=== PATIENT | male | born 1950 | race African-American/Black ===

== ENCOUNTER 2016-07-31 05:41 | Inpatient (IN) | payer OTHER ==
[2016-07-31] MEDS ORDERED: SODIUM CHLORIDE 1,000 ML IV SCH (06:00)
[2016-07-31] MEDS ORDERED: NITROGLYCERIN 2% OINTMENT - 1GM PACKET TD ONE (06:00)
--- NOTE | 2016-07-31 06:07 | PDOC ---
History of Present Illness - General History Source: Patient, Family Exam Limitations: No Limitations - History of Present Illness Initial Comments: 07/31/16 06:19 The patient is a 66-year-old male, with a significant past medical history of Afib, CHF, CVA(years ago) and lower extremity edema who presents to the emergency department via EMS with altered mental status s/p seizure episode this morning. As per patients , she reports the last time she saw the patient fully responsive was at approximately 02:00. After they went to sleep, she reports hearing a loud thump in the bathroom, but does not report a specific time. She woke up to check on the patient, found him seizing on the floor, and immediately called EMS. The denies witnessing the patient experienced any head trauma or LOC. When EMS arrived on scene the patient was not breathing, and his b.p was approximately 140/80. In the ED his b.p. Was 183/ 111. The patient is awake and minimally responsive. He reports he is experiencing chest pain. Allergies: None reported. Past Surgical History: None reported. Social History: Non-smoker. Denies alcohol or drug use. PCP: Dr. Beavers <Pierre Guerra - Last Filed: 07/31/16 06:45> <Rafaela Greenfield - Last Filed: 07/31/16 07:12> <Pradeep Doip - Last Filed: 07/31/16 09:38> - General Chief Complaint: Altered Mental Status Stated Complaint: AMS Time Seen by Provider: 07/31/16 06:07 Past History <Pierre Guerra - Last Filed: 07/31/16 06:45> - Past Medical History Cardiac Disorders: Yes Diabetes: Yes HTN: Yes Hypercholesterolemia: Yes - Surgical History Cardiac Surgery: Yes (stent) - Psycho/Social/Smoking Cessation Hx Suicidal Ideation: No Smoking History: Never smoked Information on smoking cessation initiated: No Hx Alcohol Use: No Drug/Substance Use Hx: No <Rafaela Greenfield - Last Filed: 07/31/16 07:12> <Pradeep Diop - Last Filed: 07/31/16 09:38> - Past Medical History Allergies/Adverse Reactions: Allergies Allergy/AdvReac Type Severity Reaction Status Date / Time No Known Allergies Allergy Verified 07/31/16 05:51 Home Medications: Ambulatory Orders Dabigatran Etexilate Mesylate [Pradaxa -] 150 mg PO BID 07/31/16 Furosemide [Lasix -] 40 mg PO DAILY 07/31/16 Metolazone [Zaroxolyn -] 10 mg PO WEEKLY 07/31/16 Sacubitril/Valsartan [Entresto 24 mg-26 mg Tablet] 1 each PO BID 07/31/16 Simvastatin [Zocor -] 40 mg PO HS 07/31/16 Review of Systems - Review of Systems Able to Perform ROS?: Yes Comments:: 07/31/16 06:40 GENERAL/CONSTITUTIONAL: +Weakness. No fever or chills. HEAD, EYES, EARS, NOSE AND THROAT: No change in vision. No ear pain or discharge. No sore throat. CARDIOVASCULAR: +Chest pain. No shortness of breath. RESPIRATORY: No cough, wheezing, or hemoptysis. GASTROINTESTINAL: No nausea, vomiting, diarrhea or constipation. GENITOURINARY: No dysuria, frequency, or change in urination. MUSCULOSKELETAL: No joint or muscle swelling or pain. No neck or back pain. SKIN: No rash NEUROLOGIC: +Seizures, +altered mental status. No headache, vertigo, loss of consciousness, or change in strength/sensation. ENDOCRINE: No increased thirst. No abnormal weight change. HEMATOLOGIC/LYMPHATIC: No anemia, easy bleeding, or history of blood clots. ALLERGIC/IMMUNOLOGIC: No hives or skin allergy. <Pierre Guerra - Last Filed: 07/31/16 06:45> *Physical Exam - Vital Signs Last Vital Signs Temp Pulse Resp BP Pulse Ox 90 32 H 141/115 100 07/31/16 05:56 07/31/16 05:56 07/31/16 05:56 07/31/16 05:56 - Physical Exam Comments: 07/31/16 06:44 GENERAL:. Arousable, but sleepy. In no acute distress. Afebrile. HEAD: No signs of trauma EYES: +Gaze preference to the left, and unable to follow gaze to the right. PERRLA, EOMI, sclera anicteric, conjunctiva clear ENT: Auricles normal inspection, hearing grossly normal, nares patent, oropharynx clear without exudates. Moist mucosa NECK: Normal ROM, supple, no lymphadenopathy, JVD, or masses LUNGS: Breath sounds equal, clear to auscultation bilaterally. No wheezes, and no crackles HEART: +Irregularly irregular. Normal S1 and S2, no murmurs, rubs or gallops ABDOMEN: Soft, nontender, normoactive bowel sounds. No guarding, no rebound. No masses EXTREMITIES: +Right arm and right leg weakness. Bilateral pitting edema in the lower extremities. His legs are nonerythematous, but warm. No clubbing or cyanosis. No cords or tenderness NEUROLOGICAL: +Mumbling, +unintelligible speech, +unable to follow commands. +1/ 5 strength on the right side, 2/5 strength on his left side. Cranial nerves II through XII grossly intact. SKIN: Warm, Dry, normal turgor, no rashes or lesions noted. <Pierre Guerra - Last Filed: 07/31/16 06:45> - Vital Signs Last Vital Signs Temp Pulse Resp BP Pulse Ox 90 32 H 141/115 100 07/31/16 05:56 07/31/16 05:56 07/31/16 05:56 07/31/16 05:56 <Rafaela Greenfield - Last Filed: 07/31/16 07:12> - Vital Signs Last Vital Signs Temp Pulse Resp BP Pulse Ox 97.6 F 85 18 146/92 100 07/31/16 07:21 07/31/16 07:21 07/31/16 07:21 07/31/16 07:21 07/31/16 07:21 <Pradeep Diop - Last Filed: 07/31/16 09:38> NIH Stroke Scale - Last Known Well Date/Time & Onset Date Last Known Well: 07/31/16 Time Last Known Well: 02:05 - Initial Evaluation Level of consciousness: Not alert, requires repeat stimulation to attend Ask patient the month and their age: Both incorrect Ask patient to open & close eyes; make fist and let go: Both incorrect Best gaze (horizontal eye movement): Partial gaze palsy Visual field testing: Complete hemianopia Facial paresis (Show teeth/raise eyebrows/close eyes tight): Normal symmetrical movement Motor Function: Left Arm: Normal Motor Function: Right Arm: Some effort against gravity Motor Function: Left Leg: No effort against gravity Motor Function: Right Leg: No effort against gravity Limb Ataxia: Untestable (Joint fused or limb amputated), explain: (Pt is not following commada) Sensory(Use pinprick test arms,legs,trunk,face/side to side): Mild to moderate decrease in sensation Best language (Describe picture, name items, read sentences): Severe aphasia Dysarthria (read several words): Near unintelligible or unable to speak Extinction and Inattention: Profound francisco-inattention or extinction to more than one modality - Total Score NIH Stroke Scale Score: 24 <Rafaela Greenfield - Last Filed: 07/31/16 07:12> Critical Care Time/MDM Note - Medical Decision Making Note: 07/31/16 06:46 Documentation prepared by Pierre Guerra, acting as neuropsychology medical consultant for Rafaela Greenfield MD. <Pierre Guerra - Last Filed: 07/31/16 06:45> - Medical Decision Making Note: 07/31/16 06:53 Pt comes with altered mental status; body weakness and slurred speech. He fell at home and heard a thump and brought him to the ER. She thinks he got up to use the bathroom in the middle of the night. She last saw him well around 2AM today. 07/31/16 06:55 Fredy Xiong Discussed with Dr. Greenfield at 6:22am (EST). THIS DOCUMENT HAS BEEN ELECTRONICALLY SIGNED Dario Morales MD 07/31/2016 06:23 EST M.D. Please call [facility] Professor [phone] ([phone]) with questions. PREVIOUS REPORT: Referring Physician: Chaya De Luna Patient Name: Fredy Xiong THIS IS A PRELIMINARY REPORT FROM [facility] EXAM: CT of the brain without contrast. IMAGES: 78. No hyperdense major arterial trunk or gross loss of frankel-white differentiation; moderate white matter presumed microvascular disease changes. No disproportionate ventriculomegaly. Small focus of left periopercular ill-defined relative hyperdensity, possibly artifact but a trace amount of subarachnoid blood is not excluded (image 15). There is no intra-axial hemorrhage, vasogenic edema/focal mass effect or disproportionate ventriculomegaly. The visualized portions of the paranasal sinuses, orbits and tympanomastoid cavities are unremarkable. Impression: as above. THIS DOCUMENT HAS BEEN ELECTRONICALLY SIGNED Pt's stroke scale is initially 24; see attached document. He has a history if CHF and atrial fibrillation. He is on pradaxa. The states that he had not been feeling well for the past 2 days and he ate only some crackers and tea yesterday. Labs are pending. Patient will be signed out to the day ER doctor. 07/31/16 07:03 <Rafaela Greenfield - Last Filed: 07/31/16 07:12> Discharge Disposition <Pierre Guerra - Last Filed: 07/31/16 06:45> <Rafaela Greenfield - Last Filed: 07/31/16 07:12> - Discharge Dispostion Admit: Yes <Pradeep Diop - Last Filed: 07/31/16 09:38> - Diagnosis Progressive dementia with uncertain etiology, Hydrocephalus - Discharge Dispostion Condition at time of disposition: Guarded - Referrals Referrals: Timmy Beavres [Primary Care Provider] -
[2016-07-31 06:16] LABS: BASOPHIL 1.1 % (0-2.0); MCH 29.6 pg (25.7-33.7); MCHC 32.8 g/dl (32.0-36.0); MEAN CELL VOLUME 90.4 fl (80-96); MEAN PLT VOLUME 9.4 fl (7.5-11.1); NEUTROPHILS 67.2 % (42.8-82.8); PLATELET COUNT 218 K/MM3 (134-434); RDW 13.9 % (11.6-15.6); WHITE BLOOD COUNT 10.5 K/mm3 (4.0-10.0)
[2016-07-31 06:36] LABS: INR 1.61 (0.82-1.09); PROTHROMBIN TIME (PATIENT) 17.9 SEC (9.98-11.88)
[2016-07-31 06:45] LABS: ALBUMIN 3.8 g/dl (3.4-5.0); ANION GAP 15 (8-16); BILIRUBIN,TOTAL 1.1 mg/dL (0.2-1.0); CALCIUM 9.6 mg/dL (8.5-10.1); CHOLESTEROL 172 mg/dL (50-200); CO2 24 mmol/L (21-32); CREATININE 1.4 mg/dL (0.55-1.02); GLUCOSE,RANDOM 173 mg/dL (74-106); LDL CHOLESTEROL (ONLY SJRH) 97 mg/dL (5-100); SGOT/AST 15 U/L (15-37); SGPT/ALT 18 U/L (12-78); TOT PROT 8.2 g/dl (6.4-8.2)
[2016-07-31 06:46] LABS: ALK PHOS 106 U/L (45-117); TROPONIN I < 0.02 ng/ml (0.00-0.05)
[2016-07-31] MEDS ORDERED: SODIUM CHLORIDE 0.9% 500 ML INFUS.BAG IV ONE (06:57)
[2016-07-31 07:12] LABS: URINE APPEARANCE SLCLOUDY; URINE BILIRUBIN NEGATIVE (NEGATIVE); URINE COLOR YELLOW; URINE GLUCOSE (UA) NEGATIVE (NEGATIVE); URINE KETONE TRACE (NEGATIVE); URINE LEUK ESTERASE NEGATIVE (NEGATIVE); URINE NITRITE NEGATIVE (NEGATIVE); URINE UROBILINOGEN NEGATIVE E.U./dl (0.2-1.0)
[2016-07-31 07:45] LABS: URINE BLOOD 2+ (NEGATIVE); URINE PROTEIN 3+ (NEGATIVE)
[2016-07-31 07:46] LABS: URINE BACTERIA RARE /hpf (NONE SEEN); URINE HYALINE CAST 59 /lpf; URINE MUCUS RARE; URINE RBC 9 /hpf (0-3); URINE WBC 2 /hpf (3-5); YEAST MANY
--- NOTE | 2016-07-31 10:09 | HP ---
PCP: Timmy Beavers CHIEF COMPLAINT: Seizure HISTORY OF PRESENT ILLNESS: This is a 66-year-old man who was brought in to the ER this morning by EMS after a seizure. The patient is currently unable to provide a history. His reported that sometime after 2 am, she heard a thump in the bathroom. She found the patient on the floor seizing. She called EMS. They reported that when they arrived, he was not breathing and his BP was 140/80. Since arrival in the ER, he has been minimally responsive. PAST MEDICAL HISTORY Atrial fibrillation Hypertension Hyperlipidemia CHF CVA PAST SURGICAL HISTORY None Allergies No Known Allergies Allergy (Verified 07/31/16 05:51) HOME MEDICATIONS 3 Medication Instructions Recorded Dabigatran Etexilate Mesylate 150 mg PO BID 07/31/16 [Pradaxa -] Furosemide [Lasix -] 40 mg PO DAILY 07/31/16 Metolazone [Zaroxolyn -] 10 mg PO WEEKLY 07/31/16 Sacubitril/Valsartan [Entresto 24 1 each PO BID 07/31/16 mg-26 mg Tablet] Simvastatin [Zocor -] 40 mg PO HS 07/31/16 Social History: Smoking: Never smoked Alcohol: None Drugs: None Recent Travel: No Family History: Unable to obtain REVIEW OF SYSTEMS Unable to obtain PHYSICAL EXAMINATION Vital Signs Period Temp Pulse Resp BP Sys/Giraldo Pulse Ox Last 24 Hr 97.6 F-98.2 F 73-90 14-32 132-183/78-115 97-100 GENERAL: Lying on stretcher, moaning. Does not respond to voice. Moans in response to pain. HEAD: Normal with no signs of trauma. EYES: Pupils equal, round and reactive to light, sclerae anicteric, conjunctivae clear. EARS, NOSE, THROAT: Ears normal, nares patent, oropharynx clear without exudates. Moist mucous membranes. NECK: Normal range of motion, supple without lymphadenopathy, JVD, or masses. LUNGS: Breath sounds equal, clear to auscultation bilaterally. No wheezes, and no crackles. No accessory muscle use. HEART: Regular rate and rhythm, normal S1 and S2 without murmur, rub or gallop. ABDOMEN: Soft, not distended, normoactive bowel sounds, no masses. No hepatomegaly or splenomegaly. MUSCULOSKELETAL: Normal passive range of motion at all joints. No bony deformities or tenderness. UPPER EXTREMITIES: 2+ pulses, warm, well-perfused. No cyanosis. No clubbing. Cap refill <2 seconds. No peripheral edema. LOWER EXTREMITIES: 2+ pulses, warm, well-perfused. No calf tenderness. Trace peripheral edema. NEUROLOGICAL: Unable to assess. PSYCHIATRIC: Unable to assess. SKIN: Warm, dry, normal turgor, no rashes or lesions noted. Laboratory Tests 07/31/16 07/31/16 07/31/16 05:55 05:55 05:55 WBC 10.5 H RBC 4.84 Hgb 14.4 Hct 43.8 MCV 90.4 MCHC 32.8 RDW 13.9 Plt Count 218 MPV 9.4 Neutrophils % 67.2 Lymphocytes % 22.4 Monocytes % 8.3 Eosinophils % 1.0 Basophils % 1.1 INR 1.61 H Sodium Potassium Chloride Carbon Dioxide Anion Gap BUN Creatinine Creat Clearance w eGFR POC Glucometer Random Glucose Lactic Acid Calcium Total Bilirubin AST ALT Alkaline Phosphatase Creatine Kinase Troponin I Total Protein Albumin Triglycerides Cholesterol Total LDL Cholesterol HDL Cholesterol Urine Color Yellow Urine Appearance Slcloudy Urine pH 5.0 Ur Specific [place] 1.012 Urine Protein 3+ H Urine Glucose (UA) Negative Urine Ketones Trace H Urine Blood 2+ H Urine Nitrite Negative Urine Bilirubin Negative Urine Urobilinogen Negative Ur Leukocyte Esterase Negative Urine RBC 9 Urine WBC 2 Urine Bacteria Rare Hyaline Casts 59 Urine Mucus Rare Urine Yeast Many Blood Type Antibody Screen 07/31/16 07/31/16 07/31/16 05:55 05:55 05:57 WBC RBC Hgb Hct MCV MCHC RDW Plt Count MPV Neutrophils % Lymphocytes % Monocytes % Eosinophils % Basophils % INR Sodium 140 Potassium 3.4 L Chloride 101 Carbon Dioxide 24 Anion Gap 15 BUN 14 Creatinine 1.4 H Creat Clearance w eGFR 37.39 POC Glucometer Random Glucose 173 H Lactic Acid Cancelled Calcium 9.6 Total Bilirubin 1.1 H AST 15 ALT 18 Alkaline Phosphatase 106 Creatine Kinase 106 Troponin I < 0.02 Total Protein 8.2 Albumin 3.8 Triglycerides 87 Cholesterol 172 Total LDL Cholesterol 97 HDL Cholesterol 65 H Urine Color Urine Appearance Urine pH Ur Specific [place] Urine Protein Urine Glucose (UA) Urine Ketones Urine Blood Urine Nitrite Urine Bilirubin Urine Urobilinogen Ur Leukocyte Esterase Urine RBC Urine WBC Urine Bacteria Hyaline Casts Urine Mucus Urine Yeast Blood Type O POSITIVE Antibody Screen Negative 07/31/16 05:57 WBC RBC Hgb Hct MCV MCHC RDW Plt Count MPV Neutrophils % Lymphocytes % Monocytes % Eosinophils % Basophils % INR Sodium Potassium Chloride Carbon Dioxide Anion Gap BUN Creatinine Creat Clearance w eGFR POC Glucometer [phone] Random Glucose Lactic Acid Calcium Total Bilirubin AST ALT Alkaline Phosphatase Creatine Kinase Troponin I Total Protein Albumin Triglycerides Cholesterol Total LDL Cholesterol HDL Cholesterol Urine Color Urine Appearance Urine pH Ur Specific [place] Urine Protein Urine Glucose (UA) Urine Ketones Urine Blood Urine Nitrite Urine Bilirubin Urine Urobilinogen Ur Leukocyte Esterase Urine RBC Urine WBC Urine Bacteria Hyaline Casts Urine Mucus Urine Yeast Blood Type Antibody Screen Chest x-ray: Cardiomegaly. Congestive changes. Bilateral effusions. Left pleural-based density. Head CT: Moderate diffuse cerebral atrophy with sulcal widening and ventricular dilatation. Linda-ventricular white matter ischemic changes. EKG: Atrial fibrillation, ventricular response 74 ASSESSMENT/PLAN: This is a 66-year-old man with a history of atrial fib, HTN, hyperlipidemia, CHF and CVA who presented to the ER after having a seizure. CXR showed congestion with bilateral effusions and a possible left pleural mass. Head CT showed atrophy and linda-ventricular white matter changes. He is being admitted now for treatment of an emergent condition. 1. Seizure, new-onset - Appears post-ictal - No anti-epileptics at this time - EEG - MRI of brain - Neurology consult 2. Hypokalemia - Replete potassium 3. Atrial fibrillation - Continue Pradaxa 4. Hypertension - Continue Valsartan, Zaroxolyn, Lasix 5. Hyperlipidemia - Continue Zocor 6. Chronic heart failure - Contniue Entresto, Lasix, Zaroxolyn 7. History of CVA 8. Bilateral pleural effusions and possible left pleural mass - Chest CT Problem List - Problem (1) Bilateral pleural effusion Code(s): J90 - PLEURAL EFFUSION, NOT ELSEWHERE CLASSIFIED (2) Hypokalemia Code(s): E87.6 - HYPOKALEMIA (3) Seizure Code(s): R56.9 - UNSPECIFIED CONVULSIONS (4) Chronic congestive heart failure Code(s): I50.9 - HEART FAILURE, UNSPECIFIED (5) History of CVA (cerebrovascular accident) Code(s): Z86.73 - PRSNL HX OF TIA (TIA), AND CEREB INFRC W/O RESID DEFICITS (6) Hyperlipidemia Code(s): E78.5 - HYPERLIPIDEMIA, UNSPECIFIED (7) Hypertension Code(s): I10 - ESSENTIAL (PRIMARY) HYPERTENSION Visit type - Emergency Visit Emergency Visit: Yes ED Registration Date: 07/31/16 Care time: The patient presented to the Emergency Department on the above date and was hospitalized for further evaluation of their emergent condition. - New Patient This patient is new to me today: Yes Date on this admission: 07/31/16 - Critical Care Critical Care patient: No
[2016-07-31] MEDS ORDERED: ONDANSETRON 4 MG/2 ML VIAL IVPB PRN (10:10)
[2016-07-31] MEDS: SODIUM CHLORIDE 0.9%/KCL 1,000 ML IV SCH (13:20)
--- NOTE | 2016-07-31 13:25 | CON.NEURO ---
Consult Consult Specialty:: [facility] Referred by:: Er Reason for Consultation:: seziure - History of Present Illness History of Present Illness: 66 man with new onset seziure Came to ER Head CT PMH T1. Afib, 2. CHF, 3. CVA(years ago) 4. lower extremity edema who presents to the emergency department via EMS with altered mental status s/p seizure episode this morning when he came to the emergency room patient was by himself confused according to the patient described found at night and the patient was having seizure shaking activity According to the nurse patient is not back to his baseline! Patient is a poor historian and cannot get any history from him - History Source History Provided By: Patient Limitations to Obtaining History: No Limitations - Alcohol/Substance Use Hx Alcohol Use: No - Smoking History Smoking history: Never smoked Home Medications - Allergies Allergies/Adverse Reactions: Allergies Allergy/AdvReac Type Severity Reaction Status Date / Time No Known Allergies Allergy Verified 07/31/16 05:51 - Home Medications Home Medications: Ambulatory Orders Dabigatran Etexilate Mesylate [Pradaxa -] 150 mg PO BID 07/31/16 Furosemide [Lasix -] 40 mg PO DAILY 07/31/16 Metolazone [Zaroxolyn -] 10 mg PO WEEKLY 07/31/16 Sacubitril/Valsartan [Entresto 24 mg-26 mg Tablet] 1 each PO BID 07/31/16 Simvastatin [Zocor -] 40 mg PO HS 07/31/16 Family Disease History - Family Disease History Family History: Unable to Obtain Review of Systems - Review of Systems Constitutional: reports: No Symptoms Eyes: reports: No Symptoms Physical Exam-Neuro Vital Signs: Vital Signs Temperature 97.6 F 07/31/16 07:21 Pulse Rate 76 07/31/16 11:48 Respiratory Rate 18 07/31/16 11:48 Blood Pressure 146/94 07/31/16 11:48 O2 Sat by Pulse Oximetry (%) 100 07/31/16 11:48 Constitutional: Yes: Well Nourished Neck: Yes: WNL Cardiovascular: Yes: WNL Labs: INR, PTT INR 1.61 (0.82-1.09) H 07/31/16 05:55 - Neuro Exam Level Of Consciousness: Yes: Oriented to Person Eyes: Yes: PERRLA Speech: WNL Dominant Hand: Right Mini Mental Exam: 20 DTR's: 1+ Left Bicep, 1+ Right Bicep, 1+ Left Brachioradialis, 1+ Right Brachioradialis Response to light touch: Normal Response to pain prick: Normal Response to temperature: Normal Motor Strength: 3/5: Left Arm, Right Arm, Left Leg, Right Leg Gait: Deferred Imaging - Results Cat Scan: Image Reviewed Problem List - Problems (1) Seizure Code(s): R56.9 - UNSPECIFIED CONVULSIONS (2) History of CVA (cerebrovascular accident) Code(s): Z86.73 - PRSNL HX OF TIA (TIA), AND CEREB INFRC W/O RESID DEFICITS Assessment/Plan New onset seizure 1. Neuro q2 2. MRI brain with no Silverio 3. EEG 4. Ativan prn seizure 5. Will call the 6. Seizure precautions 7. Prolactin level 8. Dementia blood workup Thank you for the referral
[2016-07-31 15:33] VITALS: BMI 30.8
[2016-07-31] MEDS ORDERED: PNEUMOC 13-VAL CONJ-DIP CRM/PF 0.5 ML DISP.SYRIN IM ONE (15:33)
[2016-07-31] MEDS ORDERED: INFLUENZA VACCINE 45 MCG/0.5 ML (MDV 16-17) IM ONE (15:33)
[2016-07-31] MEDS: SACUBITRIL/VALSARTAN 24 MG-26 MG TABLET PO SCH (22:19)
[2016-07-31] MEDS: ATORVASTATIN CA 20 MG TABLET (FP) PO SCH (22:19)
[2016-07-31] MEDS: DABIGATRAN ETEXILATE MESYLATE 150 MG CAPSULE PO SCH (22:19)
[2016-08-01 08:50] LABS: MCH 29.6 pg (25.7-33.7); MEAN CELL VOLUME 89.8 fl (80-96); PLATELET COUNT 169 K/MM3 (134-434); RDW 13.3 % (11.9-15.9); WHITE BLOOD COUNT 5.8 K/mm3 (4.0-10.0)
[2016-08-01 09:42] LABS: CALCIUM 8.9 mg/dL (8.5-10.1); CREATININE 1.1 mg/dL (0.7-1.3)
[2016-08-01] MEDS ORDERED: PT OWN MED DRAWER 7, Y5N ONE (10:31)
[2016-08-01] MEDS: SODIUM CHLORIDE 0.9%/KCL 1,000 ML IV SCH (10:32)
[2016-08-01] MEDS: DABIGATRAN ETEXILATE MESYLATE 150 MG CAPSULE PO SCH ×2 (10:32→21:57)
[2016-08-01] MEDS: SACUBITRIL/VALSARTAN 24 MG-26 MG TABLET PO SCH ×2 (10:33→21:57)
[2016-08-01] MEDS: FUROSEMIDE 40 MG TABLET (FP) PO SCH (10:33)
[2016-08-01] MEDS ORDERED: POTASSIUM CHLORIDE 40 MEQ/30 ML UNIT DOSE CUP PO ONE (13:30)
--- NOTE | 2016-08-01 14:56 | PN ---
Physical Exam: SUBJECTIVE: Patient seen and examined. He is oob to wheelchair. He states he is feeling better, not 100%. He is eating without difficulty. OBJECTIVE: Vital Signs Period Temp Pulse Resp BP Sys/Giraldo Pulse Ox Last 24 Hr 97.5 F-98.1 F 68-86 14-20 125-157/83-103 100-100 PE Neuro: alert, awake, cn 2-12 intact, drowsy does answer questions Pulm: diminished bases no sob, cough, wheezing CV: s1 s2 irregular rhythm, + murmur Abd: s nt nd +bs : prieto, blood tinged Ext: Warm, no le edema, full ROM CBCD WBC 5.8 K/mm3 (4.0-10.0) D 08/01/16 07:35 RBC 4.50 M/mm3 (4.00-5.60) 08/01/16 07:35 Hgb 13.3 GM/dL (11.7-16.9) 08/01/16 07:35 Hct 40.4 % (35.4-49) 08/01/16 07:35 MCV 89.8 fl (80-96) 08/01/16 07:35 MCHC 33.0 g/dl (32.0-35.9) 08/01/16 07:35 RDW 13.3 % (11.9-15.9) 08/01/16 07:35 Plt Count 169 K/MM3 (134-434) D 08/01/16 07:35 MPV 9.0 fl (7.5-11.1) 08/01/16 07:35 CMP Sodium 139 mmol/L (136-145) 08/01/16 07:35 Potassium 3.2 mmol/L (3.5-5.1) L 08/01/16 07:35 Chloride 101 mmol/L (98-107) 08/01/16 07:35 Carbon Dioxide 29 mmol/L (21-32) D 08/01/16 07:35 Anion Gap 9 (8-16) 08/01/16 07:35 BUN 11 mg/dL (7-18) D 08/01/16 07:35 Creatinine 1.1 mg/dL (0.7-1.3) D 08/01/16 07:35 Creat Clearance w eGFR 37.39 (>60) 07/31/16 05:55 Calcium 8.9 mg/dL (8.5-10.1) 08/01/16 07:35 Total Bilirubin 1.1 mg/dL (0.2-1.0) H 07/31/16 05:55 AST 15 U/L (15-37) 07/31/16 05:55 ALT 18 U/L (12-78) 07/31/16 05:55 Alkaline Phosphatase 106 U/L (45-117) 07/31/16 05:55 Total Protein 8.2 g/dl (6.4-8.2) 07/31/16 05:55 Albumin 3.8 g/dl (3.4-5.0) 07/31/16 05:55 07/31/16 07/31/16 07/31/16 05:55 06:00 10:05 Lactic Acid 1.962 GGT 102 H Creatine Kinase 106 Troponin I < 0.02 Triglycerides 87 Cholesterol 172 Total LDL Cholesterol 97 HDL Cholesterol 65 H Aldolase 08/01/16 07:35 Lactic Acid GGT Creatine Kinase Troponin I Triglycerides Cholesterol Total LDL Cholesterol HDL Cholesterol Aldolase Pending Active Medications Generic Name Dose Route Start Last Admin Trade Name Freq PRN Reason Stop Dose Admin Atorvastatin Calcium 20 mg 07/31/16 22:00 07/31/16 22:19 Lipitor - PO 20 mg HS HERBERT Administration Dabigatran 150 mg 07/31/16 22:00 08/01/16 10:32 Pradaxa - PO 150 mg BID HERBERT Administration Furosemide 40 mg 08/01/16 10:00 08/01/16 10:33 Lasix - PO 40 mg DAILY HERBERT Administration Ondansetron HCl 4 mg 07/31/16 10:10 Zofran Injection IVPB Q4H PRN NAUSEA Imaging: CXR 07/31: Cardiomegaly. Congestive changes. Bilateral effusions. Left pleural- based density. Head CT 07/31: Moderate diffuse cerebral atrophy with sulcal widening and ventricular dilatation. Amanda-ventricular white matter ischemic changes. Assessment: 66 year old male with a history of atrial fib, HTN, hyperlipidemia, CHF and CVA admitted s/p witnessed seizure. Plan: 1. Seizure, new-onset - Per , close to baseline today - MRI brain noted, generalized vol loss w/ extensive foci of small vessel infarction in the periventricular white matter - EEG ordered - Dementia work up initiated - Neurology following 2. Hypokalemia - Stop fluids - Potassium 40meq x1 3. Atrial fibrillation - Continue Pradaxa 4. CHF - Appears uvolemic - Continue Entresto - Continue Zaroxolyn - Continue Lasix 5. Hyperlipidemia - Continue Zocor 6. HTN - Continue Valsartan 7. Bilateral pleural effusions and possible left pleural mass - Chest CT to be done Visit type - Emergency Visit Emergency Visit: Yes ED Registration Date: 07/31/16 Care time: The patient presented to the Emergency Department on the above date and was hospitalized for further evaluation of their emergent condition. - New Patient This patient is new to me today: Yes Date on this admission: 08/01/16 - Critical Care Critical Care patient: No
[2016-08-01] MEDS: ATORVASTATIN CA 20 MG TABLET (FP) PO SCH (21:57)
--- NOTE | 2016-08-01 23:40 | EKG ---
Test Reason : Blood Pressure : / mmHG Vent. Rate : 074 BPM Atrial Rate : 067 BPM P-R Int : 000 ms QRS Dur : 124 ms QT Int : 410 ms P-R-T Axes : 000 011 -77 degrees QTc Int : 455 ms UNDETERMINED RHYTHM , LIKELY ATRIAL FIBRILLATION NON-SPECIFIC INTRA-VENTRICULAR CONDUCTION DELAY ABNORMAL ECG NO PREVIOUS ECGS AVAILABLE Confirmed by ANTONIA LYMAN MD ([id number]) on 08/01/2016 11:39:55 PM Referred By: Confirmed By:ANTONIA LYMAN MD
[2016-08-02 07:50] LABS: CALCIUM 9.3 mg/dL (8.5-10.1); CREATININE 1.2 mg/dL (0.7-1.3); MAGNESIUM 1.8 mg/dL (1.8-2.4)
[2016-08-02] MEDS ORDERED: POTASSIUM CHLORIDE 40 MEQ/30 ML UNIT DOSE CUP PO ONE (09:15)
[2016-08-02] MEDS ORDERED: PT OWN MED DRAWER 7, Y5N ONE (09:37)
[2016-08-02] MEDS: SACUBITRIL/VALSARTAN 24 MG-26 MG TABLET PO SCH ×2 (09:40→21:06)
[2016-08-02] MEDS: POTASSIUM CHLORIDE TABS 20 MEQ TABLET.ER (FP) PO SCH (09:41)
[2016-08-02] MEDS: DABIGATRAN ETEXILATE MESYLATE 150 MG CAPSULE PO SCH ×2 (09:41→21:04)
[2016-08-02] MEDS: FUROSEMIDE 40 MG TABLET (FP) PO SCH (09:42)
--- NOTE | 2016-08-02 12:18 | PN ---
Progress Note (short form) - Note Progress Note: Neurology follow up - History of Present Illness History of Present Illness: 66 year old man with history of afib, chf, stroke years ago, lower extremity edema, seen by Dr Scott yesterday for new onset seizure. Patient presented via EMS with new onset of seizure. As per , patient was found to be shaking and was not at baseline yesterday. MRI brain complete shows no acute infarct EEG pending Patient awake and alert today, slightly confused - History Source History Provided By: Patient Limitations to Obtaining History: No Limitations - Alcohol/Substance Use Hx Alcohol Use: No - Smoking History Smoking history: Never smoked Home Medications - Allergies Allergies/Adverse Reactions: Allergies Allergy/AdvReac Type Severity Reaction Status Date / Time No Known Allergies Allergy Verified 07/31/16 05:51 - Home Medications Home Medications: Ambulatory Orders Dabigatran Etexilate Mesylate [Pradaxa -] 150 mg PO BID 07/31/16 Furosemide [Lasix -] 40 mg PO DAILY 07/31/16 Metolazone [Zaroxolyn -] 10 mg PO WEEKLY 07/31/16 Sacubitril/Valsartan [Entresto 24 mg-26 mg Tablet] 1 each PO BID 07/31/16 Simvastatin [Zocor -] 40 mg PO HS 07/31/16 Family Disease History - Family Disease History Family History: Unable to Obtain Review of Systems - Review of Systems Constitutional: reports: No Symptoms Eyes: reports: No Symptoms Physical Exam-Neuro Constitutional: Yes: Well Nourished Mental status: knows name, place, does not know age CNII-XII: EOMI, visual rich full, face symmetric, tongue midline Motor: No obvious drift, moving all ext equally Sensory: intact to light touch Neck: Yes: WNL Cardiovascular: Yes: WNL Imaging - Results Cat Scan: Image Reviewed Problem List - Problems (1) Seizure Code(s): R56.9 - UNSPECIFIED CONVULSIONS (2) History of CVA (cerebrovascular accident) Code(s): Z86.73 - PRSNL HX OF TIA (TIA), AND CEREB INFRC W/O RESID DEFICITS Assessment/Plan 66 year old man with history of afib, chf, stroke years ago, lower extremity edema, seen by Dr Scott yesterday for new onset seizure. Patient presented via EMS with new onset of seizure. As per , patient was found to be shaking and was not at baseline yesterday. Patient awake and alert today, slightly confused MRI brain complete shows no acute infarct EEG pending New onset seizure EEG pending Ativan PRN if breakthrough event Dementia blood workup Supportive care
--- NOTE | 2016-08-02 15:15 | PN ---
Physical Exam: SUBJECTIVE: Patient seen and examined. He offers no complaints, however appears more confused that yesterday. Believes he is at the [facility]. OBJECTIVE: Vital Signs Period Temp Pulse Resp BP Sys/Giraldo Pulse Ox Last 24 Hr 97.8 F-98.3 F 77-80 20-20 122-143/68-98 100-100 PE Neuro: alert, awake, cn 2-12 intact, says linus is president, knows his birthday , says he is at the [facility] Pulm: CTAB CV: s1 s2 irregular rhythm Abd: s nt nd +bs Ext: Warm, no le edema, full ROM Laboratory Results - last 24 hr 08/02/16 08/02/16 05:34 05:35 Sodium 140 Potassium 3.1 L Chloride 99 Carbon Dioxide 30 Anion Gap 11 BUN 17 D Creatinine 1.2 POC Glucometer 97 Random Glucose 101 Calcium 9.3 Magnesium 1.8 Active Medications Generic Name Dose Route Start Last Admin Trade Name Freq PRN Reason Stop Dose Admin Atorvastatin Calcium 20 mg 07/31/16 22:00 08/01/16 21:57 Lipitor - PO 20 mg HS HERBERT Administration Dabigatran 150 mg 07/31/16 22:00 08/02/16 09:41 Pradaxa - PO 150 mg BID HERBERT Administration Furosemide 40 mg 08/01/16 10:00 08/02/16 09:42 Lasix - PO 40 mg DAILY HERBERT Administration Ondansetron HCl 4 mg 07/31/16 10:10 Zofran Injection IVPB Q4H PRN NAUSEA Potassium Chloride 20 meq 08/02/16 10:00 08/02/16 09:41 K-Dur - PO 20 meq DAILY HERBERT Administration Imaging: - CXR 07/31: Cardiomegaly. Congestive changes. Bilateral effusions. Left pleural- based density. - Head CT 07/31: Moderate diffuse cerebral atrophy with sulcal widening and ventricular dilatation. Amanda-ventricular white matter ischemic changes. - MRI brain noted, generalized vol loss w/ extensive foci of small vessel infarction in the periventricular white matter Assessment: 66 year old male with a history of atrial fib, HTN, hyperlipidemia, CHF and CVA admitted s/p witnessed seizure. Plan: 1. Seizure, new-onset - Increased confusion today - EEG done, results can be followed as outpt - Dementia work up initiated - Neurology following 2. Hypokalemia - Start kdur 20meq po daily - Potassium 40meq x1 3. Atrial fibrillation - Continue Pradaxa 4. CHF - Continue Entresto - Continue Zaroxolyn - Continue Lasix 5. Hyperlipidemia - Continue Zocor 6. HTN - Continue Valsartan 7. Bilateral pleural effusions and possible left pleural mass - Chest CT done, report pending 8. Physical therapy - Evaluation to be done, may require STR, agreeable Visit type - Emergency Visit Emergency Visit: Yes ED Registration Date: 07/31/16 Care time: The patient presented to the Emergency Department on the above date and was hospitalized for further evaluation of their emergent condition. - New Patient This patient is new to me today: No - Critical Care Critical Care patient: No
[2016-08-02] MEDS: ATORVASTATIN CA 20 MG TABLET (FP) PO SCH (21:04)
[2016-08-03 00:09] LABS: ALDOLASE 10.1 U/L (3.3-10.3)
[2016-08-03 08:49] LABS: CALCIUM 8.6 mg/dL (8.5-10.1); CREATININE 1.3 mg/dL (0.7-1.3)
[2016-08-03] MEDS: DABIGATRAN ETEXILATE MESYLATE 150 MG CAPSULE PO SCH ×2 (10:12→21:50)
[2016-08-03] MEDS: POTASSIUM CHLORIDE TABS 20 MEQ TABLET.ER (FP) PO SCH (10:13)
[2016-08-03] MEDS: SACUBITRIL/VALSARTAN 24 MG-26 MG TABLET PO SCH ×2 (10:13→21:50)
[2016-08-03] MEDS: FUROSEMIDE 40 MG TABLET (FP) PO SCH (10:13)
--- NOTE | 2016-08-03 13:59 | PN ---
Progress Note (short form) - Note Progress Note: Neurology follow up - History of Present Illness History of Present Illness: 66 year old man with history of afib, chf, stroke years ago, lower extremity edema, seen by Dr Scott yesterday for new onset seizure. Patient presented via EMS with new onset of seizure. As per , patient was found to be shaking and was not at baseline yesterday. MRI brain complete shows no acute infarct, generalized volume loss EEG shows slowing, metabolic encephalopthy? - History Source History Provided By: Patient Limitations to Obtaining History: No Limitations - Alcohol/Substance Use Hx Alcohol Use: No - Smoking History Smoking history: Never smoked Home Medications - Allergies Allergies/Adverse Reactions: Allergies Allergy/AdvReac Type Severity Reaction Status Date / Time No Known Allergies Allergy Verified 07/31/16 05:51 - Home Medications Home Medications: Ambulatory Orders Dabigatran Etexilate Mesylate [Pradaxa -] 150 mg PO BID 07/31/16 Furosemide [Lasix -] 40 mg PO DAILY 07/31/16 Metolazone [Zaroxolyn -] 10 mg PO WEEKLY 07/31/16 Sacubitril/Valsartan [Entresto 24 mg-26 mg Tablet] 1 each PO BID 07/31/16 Simvastatin [Zocor -] 40 mg PO HS 07/31/16 Family Disease History - Family Disease History Family History: Unable to Obtain Review of Systems - Review of Systems Constitutional: reports: No Symptoms Eyes: reports: No Symptoms Physical Exam-Neuro Constitutional: Yes: Well Nourished Mental status: knows name, does not know place or age CNII-XII: EOMI, visual rich full, face symmetric, tongue midline Motor: No obvious drift, moving all ext equally Sensory: intact to light touch Neck: Yes: WNL Cardiovascular: Yes: WNL Imaging - Results Cat Scan: Image Reviewed Problem List - Problems (1) Seizure Code(s): R56.9 - UNSPECIFIED CONVULSIONS (2) History of CVA (cerebrovascular accident) Code(s): Z86.73 - PRSNL HX OF TIA (TIA), AND CEREB INFRC W/O RESID DEFICITS Assessment/Plan 66 year old man with history of afib, chf, stroke years ago, lower extremity edema, seen by Dr Scott yesterday for new onset seizure. Patient presented via EMS with new onset of seizure. As per , patient was found to be shaking and was not at baseline yesterday. Patient awake and alert today, confused New onset seizure MRI brain volume loss no stroke EEG slowing No breakthrough events No clear reason for confusion, need to clarify patient's baseline if any history of dementia? Supportive care
[2016-08-03] MEDS ORDERED: POTASSIUM CHLORIDE 40 MEQ/30 ML UNIT DOSE CUP PO ONE ×3 (14:36→17:09)
--- NOTE | 2016-08-03 14:38 | PN ---
Physical Exam: SUBJECTIVE: Patient seen and examined. He has no complaints. Surprised to know he is at [facility] in [place]. OBJECTIVE: Vital Signs Period Temp Pulse Resp BP Sys/Giraldo Pulse Ox Last 24 Hr 97.9 F-98.2 F 72-78 20-20 110-129/58-78 100 PE Neuro: alert, awake, cn 2-12 intact, says he is at [facility] Pulm: CTAB CV: s1 s2 irregular rhythm Abd: s nt nd +bs Ext: Warm, no le edema Laboratory Results - last 24 hr 08/01/16 08/03/16 08/03/16 07:35 05:44 07:30 Sodium 140 Potassium 3.1 L Chloride 101 Carbon Dioxide 31 Anion Gap 8 BUN 16 Creatinine 1.3 POC Glucometer 137 Random Glucose 102 Calcium 8.6 Aldolase 10.1 LUPE Screen Negative Active Medications Generic Name Dose Route Start Last Admin Trade Name Freq PRN Reason Stop Dose Admin Atorvastatin Calcium 20 mg 07/31/16 22:00 08/02/16 21:04 Lipitor - PO 20 mg HS HERBERT Administration Dabigatran 150 mg 07/31/16 22:00 08/03/16 10:12 Pradaxa - PO 150 mg BID HERBERT Administration Furosemide 40 mg 08/01/16 10:00 08/03/16 10:13 Lasix - PO 40 mg DAILY HERBERT Administration Ondansetron HCl 4 mg 07/31/16 10:10 Zofran Injection IVPB Q4H PRN NAUSEA Potassium Chloride 20 meq 08/02/16 10:00 08/03/16 10:13 K-Dur - PO 20 meq DAILY HERBERT Administration Imaging: - CXR 07/31: Cardiomegaly. Congestive changes. Bilateral effusions. Left pleural- based density. - Head CT 07/31: Moderate diffuse cerebral atrophy with sulcal widening and ventricular dilatation. Amanda-ventricular white matter ischemic changes. - MRI brain 07/31: generalized vol loss w/ extensive foci of small vessel infarction in the periventricular white matter Assessment: 66 year old male with a history of atrial fib, HTN, hyperlipidemia, CHF and CVA admitted s/p witnessed seizure. Plan: 1. Seizure, new-onset - D/w , confusion states appears chronic, however has been increasing lately , ? early dementia - EEG with slowing and MRI brain negative for acute pathology - Aldolase level wnl, LUPE negative - Pt to follow up with neuro as outpt 2. Hypokalemia - K dur 20meq daily - Check mag level, replete as needed, re check - If mg normal will give potassium 40meq x1 now and again 4 hrs 3. Atrial fibrillation - Continue Pradaxa 4. CHF - Continue Entresto - Continue Lasix 5. Hyperlipidemia - Continue Zocor 6. HTN - Continue Valsartan 7. Bilateral pleural effusions and possible left pleural mass - Chest CT done, report pending 8. Physical therapy - Will need short term rehab Visit type - Emergency Visit Emergency Visit: Yes ED Registration Date: 07/31/16 Care time: The patient presented to the Emergency Department on the above date and was hospitalized for further evaluation of their emergent condition. - New Patient This patient is new to me today: No - Critical Care Critical Care patient: No
[2016-08-03 15:49] LABS: CALCIUM 8.8 mg/dL (8.5-10.1); CREATININE 1.3 mg/dL (0.7-1.3); MAGNESIUM 1.9 mg/dL (1.8-2.4)
[2016-08-03] MEDS ORDERED: PT OWN MED DRAWER 7, Y5N ONE (21:06)
[2016-08-03] MEDS: ATORVASTATIN CA 20 MG TABLET (FP) PO SCH (21:50)
[2016-08-04 08:57] LABS: ALBUMIN 3.1 g/dl (3.4-5.0); BILIRUBIN,TOTAL 1.1 mg/dL (0.2-1.0); CALCIUM 8.9 mg/dL (8.5-10.1); CREATININE 1.3 mg/dL (0.7-1.3); TOT PROT 7.1 g/dl (6.4-8.2)
[2016-08-04] MEDS ORDERED: PT OWN MED DRAWER 7, Y5N ONE ×2 (09:58→21:15)
[2016-08-04] MEDS: DABIGATRAN ETEXILATE MESYLATE 150 MG CAPSULE PO SCH ×2 (10:01→21:28)
[2016-08-04] MEDS: SACUBITRIL/VALSARTAN 24 MG-26 MG TABLET PO SCH ×2 (10:01→21:28)
[2016-08-04] MEDS: FUROSEMIDE 40 MG TABLET (FP) PO SCH (10:01)
[2016-08-04] MEDS: POTASSIUM CHLORIDE TABS 20 MEQ TABLET.ER (FP) PO SCH (10:01)
[2016-08-04] MEDS ORDERED: POTASSIUM CHLORIDE 40 MEQ/30 ML UNIT DOSE CUP PO ONE (18:30)
--- NOTE | 2016-08-04 18:36 | PN ---
Physical Exam: SUBJECTIVE: Patient seen and examined. No change, no complaints. Says he is at [place] OBJECTIVE: Vital Signs Period Temp Pulse Resp BP Sys/Giraldo Pulse Ox Last 24 Hr 98.0 F-98.5 F 76-86 18-20 120-129/62-84 98-100 PE Neuro: alert, awake, cn 2-12 intact, says he is at [facility] Pulm: CTAB CV: s1 s2 irregular rhythm Abd: s nt nd +bs Ext: Warm, no le edema Laboratory Results - last 24 hr 08/04/16 06:00 Sodium 141 Potassium 3.4 L Chloride 102 Carbon Dioxide 30 Anion Gap 9 BUN 19 H Creatinine 1.3 Creat Clearance w eGFR 54.90 Random Glucose 99 Calcium 8.9 Total Bilirubin 1.1 H AST 20 D ALT 20 Alkaline Phosphatase 93 Total Protein 7.1 Albumin 3.1 L Active Medications Generic Name Dose Route Start Last Admin Trade Name Freq PRN Reason Stop Dose Admin Atorvastatin Calcium 20 mg 07/31/16 22:00 08/03/16 21:50 Lipitor - PO 20 mg HS HERBERT Administration Dabigatran 150 mg 07/31/16 22:00 08/04/16 10:01 Pradaxa - PO 150 mg BID HERBERT Administration Furosemide 40 mg 08/01/16 10:00 08/04/16 10:01 Lasix - PO 40 mg DAILY HERBERT Administration Ondansetron HCl 4 mg 07/31/16 10:10 Zofran Injection IVPB Q4H PRN NAUSEA Potassium Chloride 20 meq 08/02/16 10:00 08/04/16 10:01 K-Dur - PO 20 meq DAILY HERBERT Administration Imaging: - CXR 07/31: Cardiomegaly. Congestive changes. Bilateral effusions. Left pleural- based density. - Head CT 07/31: Moderate diffuse cerebral atrophy with sulcal widening and ventricular dilatation. Amanda-ventricular white matter ischemic changes. - MRI brain 07/31: generalized vol loss w/ extensive foci of small vessel infarction in the periventricular white matter Assessment: 66 year old male with a history of atrial fib, HTN, HLD, CHF and CVA admitted s/p witnessed seizure. Plan: 1. Bilateral pleural effusions and possible left pleural mass - Chest CT done shows L pleural mass/collection - For biopsy on Tuesday due to pradaxa - Hold pradaxa Tuesday night start heparin gtt - Pulm consulted, spoke w Dr. Galvan will see pt tomorrow 2. Atrial fibrillation - Cont Pradaxa 3. Hypokalemia - K dur 20meq daily - Replete 40meq x1 today 4. Seizure, new-onset - D/w , confusion states appears chronic, however has been increasing lately , ? early dementia - EEG with slowing and MRI brain negative for acute pathology - Aldolase level wnl, LUPE negative - Pt to follow up with neuro as outpt 5. CHF - Continue Entresto - Continue Lasix 6. Hyperlipidemia - Continue Zocor 7. HTN - Continue Valsartan Visit type - Emergency Visit Emergency Visit: Yes ED Registration Date: 07/31/16 Care time: The patient presented to the Emergency Department on the above date and was hospitalized for further evaluation of their emergent condition. - New Patient This patient is new to me today: No - Critical Care Critical Care patient: No - Discharge Referral Referred to [facility] Med [facility] No
[2016-08-04] MEDS ORDERED: HEPARIN NA (PORCINE) 5,000 UNITS/ML 1ML VIAL IVPUSH PRN ×2 (18:55)
[2016-08-04] MEDS: ATORVASTATIN CA 20 MG TABLET (FP) PO SCH (21:28)
[2016-08-04] MEDS ORDERED: HEPARIN - 25,000 UNIT in SODIUM CHLORIDE 495 ML IV SCH (22:00)
[2016-08-05 08:32] LABS: ALBUMIN 3.2 g/dl (3.4-5.0)
[2016-08-05 08:36] LABS: BILIRUBIN,TOTAL 1.2 mg/dL (0.2-1.0); CREATININE 1.4 mg/dL (0.7-1.3); TOT PROT 7.4 g/dl (6.4-8.2)
[2016-08-05] MEDS ORDERED: PT OWN MED DRAWER 7, Y5N ONE (09:15)
[2016-08-05] MEDS: SACUBITRIL/VALSARTAN 24 MG-26 MG TABLET PO SCH ×2 (09:19→21:08)
[2016-08-05] MEDS: DABIGATRAN ETEXILATE MESYLATE 150 MG CAPSULE PO SCH ×2 (09:19→21:07)
[2016-08-05] MEDS: POTASSIUM CHLORIDE TABS 20 MEQ TABLET.ER (FP) PO SCH (09:19)
[2016-08-05] MEDS: FUROSEMIDE 40 MG TABLET (FP) PO SCH (09:19)
[2016-08-05] MEDS ORDERED: POTASSIUM CHLORIDE 40 MEQ/30 ML UNIT DOSE CUP PO ONE (11:30)
--- NOTE | 2016-08-05 12:16 | CONSULT ---
Consult Consult Specialty:: PULMONARY Referred by:: ROMAN Prince Reason for Consultation:: abnormal CT chest - History of Present Illness Chief Complaint: seizure History of Present Illness: 66yo male with h/o HTN, hyperlipidemia, atrial fibrillation on anticoagulation, h/o CVA, CHF who was admitted after experiencing a seizure without history of seizure disorder. Pulmonary consulted for an abnormal CXR showing ARBEN pleural based mass confirmed on CT chest. Pt denies any shortness of breath or chest pain. No cough or wheezing. No fevers, chills or night sweats. No unintentional weight loss. 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 No prior imaging in our system for comparison. - History Source History Provided By: Patient, Medical Record Limitations to Obtaining History: Poor Historian - Past Medical History Cardio/Vascular: Yes: AFIB, CHF, HTN, Hyperlipdemia - Alcohol/Substance Use Hx Alcohol Use: No - Smoking History Smoking history: Never smoked Home Medications - Allergies Allergies/Adverse Reactions: Allergies Allergy/AdvReac Type Severity Reaction Status Date / Time No Known Allergies Allergy Verified 07/31/16 05:51 - Home Medications Home Medications: Ambulatory Orders Dabigatran Etexilate Mesylate [Pradaxa -] 150 mg PO BID 07/31/16 Furosemide [Lasix -] 40 mg PO DAILY 07/31/16 Metolazone [Zaroxolyn -] 10 mg PO WEEKLY 07/31/16 Sacubitril/Valsartan [Entresto 24 mg-26 mg Tablet] 1 each PO BID 07/31/16 Simvastatin [Zocor -] 40 mg PO HS 07/31/16 Review of Systems - Review of Systems Constitutional: denies: Chills, Fever Eyes: denies: Recent Change in Vision HENT: denies: Nasal Congestion, Throat Pain Neck: denies: Stiffness, Tenderness Cardiovascular: denies: Chest Pain, Edema, Palpitations, Shortness of Breath Respiratory: denies: Cough, Hemoptysis, SOB, Wheezing Gastrointestinal: denies: Abdominal Pain, Nausea, Vomiting Genitourinary: denies: Dysuria, Hematuria Neurological: denies: Dizziness, Headache Endocrine: denies: Unexplained Weight Gain, Unexplained Weight Loss Physical Exam Vital Signs: Vital Signs Temperature 97.6 F 08/05/16 09:00 Pulse Rate 68 08/05/16 09:00 Respiratory Rate 16 08/05/16 09:00 Blood Pressure 112/66 08/05/16 09:00 O2 Sat by Pulse Oximetry (%) 98 08/04/16 21:00 Constitutional: Yes: Calm Eyes: Yes: Conjunctiva Clear, EOM Intact HENT: Yes: Atraumatic, Pharyngeal Erythema Neck: Yes: Supple, Trachea Midline. No: Lymphadenopathy Respiratory: Yes: Regular, CTA Bilaterally Gastrointestinal: Yes: Normal Bowel Sounds, Soft. No: Tenderness Edema: No Labs: CBC, BMP 08/01/16 07:35 08/05/16 07:25 Imaging - Results Cat Scan: Report Reviewed, Image Reviewed (left pleural based mass vs loculated fluid) Problem List - Problems (1) Lung mass Code(s): R91.8 - OTHER NONSPECIFIC ABNORMAL FINDING OF LUNG FIELD (2) Seizure Code(s): R56.9 - UNSPECIFIED CONVULSIONS (3) Pleural effusion Code(s): J90 - PLEURAL EFFUSION, NOT ELSEWHERE CLASSIFIED (4) History of CVA (cerebrovascular accident) Code(s): Z86.73 - PRSNL HX OF TIA (TIA), AND CEREB INFRC W/O RESID DEFICITS (5) Hyperlipidemia Code(s): E78.5 - HYPERLIPIDEMIA, UNSPECIFIED (6) Hypertension Code(s): I10 - ESSENTIAL (PRIMARY) HYPERTENSION (7) CHF (congestive heart failure) Code(s): I50.9 - HEART FAILURE, UNSPECIFIED Assessment/Plan Left Pleural Based Mass vs Loculated Pleural Effusion Seizure HTN Hyperlipidemia Atrial Fibrillation h/o CVA - no prior imaging available for comparison - appearance of pleural lesion does not look invasive but will need tissue biopsy via CT guidance - alternatively can get PET scan and biopsy as outpt - will get echocardiogram - hold anticoagulation for possible biopsy - will consult IR - neuro work up in progress - DVT prophylaxis Thank you for this consult Daryl Galvan MD
--- NOTE | 2016-08-05 16:49 | PN ---
Physical Exam: SUBJECTIVE: Patient seen and examined. He ambulated well with PT and in the room. He was agitated however than had a large BM. OBJECTIVE: Vital Signs Period Temp Pulse Resp BP Sys/Giraldo Pulse Ox Last 24 Hr 97.3 F-98.3 F 67-80 16-20 100-124/60-70 98 PE Neuro: alert, awake, cn 2-12 intact, says he is at hospital Pulm: CTAB CV: s1 s2 irregular rhythm Abd: s nt nd +bs Ext: Warm, no le edema Laboratory Results - last 24 hr 08/05/16 07:25 Sodium 139 Potassium 3.4 L Chloride 100 Carbon Dioxide 29 Anion Gap 10 BUN 20 H Creatinine 1.4 H Creat Clearance w eGFR 50.40 Random Glucose 102 Calcium 9.0 Total Bilirubin 1.2 H AST 19 ALT 18 Alkaline Phosphatase 85 Total Protein 7.4 Albumin 3.2 L Active Medications Generic Name Dose Route Start Last Admin Trade Name Freq PRN Reason Stop Dose Admin Atorvastatin Calcium 20 mg 07/31/16 22:00 08/04/16 21:28 Lipitor - PO 20 mg HS HERBERT Administration Dabigatran 150 mg 08/04/16 22:00 08/05/16 09:19 Pradaxa - PO 150 mg BID HERBERT Administration Furosemide 40 mg 08/01/16 10:00 08/05/16 09:19 Lasix - PO 40 mg DAILY HERBERT Administration Ondansetron HCl 4 mg 07/31/16 10:10 Zofran Injection IVPB Q4H PRN NAUSEA Potassium Chloride 20 meq 08/02/16 10:00 08/05/16 09:19 K-Dur - PO 20 meq DAILY HERBERT Administration Imaging: - Head CT 07/31: Moderate diffuse cerebral atrophy with sulcal widening and ventricular dilatation. Amanda-ventricular white matter ischemic changes - MRI brain 07/31: generalized vol loss w/ extensive foci of small vessel infarction in the periventricular white matter - ECHO 08/04: mod dilated LV, LVSF severely reduced, severe global hypokinesis, RVSF nml, mod MR, trace TR, LA mod dilated Assessment: 66 year old male with a history of atrial fib, HTN, HLD, CHF and CVA admitted s/p witnessed seizure. Plan: 1. Bilateral pleural effusions and possible left pleural mass - Chest CT done shows L pleural mass/collection, per pulm lesion does not appear invasive - Biopsy can happen as outpatient, with Dr. Galvan - D/w , explained she will need to help with outpt bx and PET, she understands and says she will - She would like us to contact pt PCP/epic prelude analyst in the [place] ([facility]) to inform him of this issue - Will need to hold AC 2 days prior to bx, possible need heparin gtt, to be discussed with epic prelude analyst - Echo noted above - D/w pulm, appreciate consult 2. CHF, stable - Continue Entresto - Continue Lasix 3. Atrial fibrillation - Cont Pradaxa BID 4. Hypokalemia - Started on K dur 20meq daily; to continue - Replete 40meq x1 today 5. Seizure, new-onset - D/w , confusion states appears chronic, however has been increasing lately , ? early dementia - EEG with slowing and MRI brain negative for acute pathology - Aldolase level wnl, LUPE negative - Pt to follow up with neuro as outpt 6. Hyperlipidemia - Continue Zocor 7. HTN - Continue Valsartan Dispo: - Home with VNS if stable with PT, as was much improved today, of unsteady > SNF Visit type - Emergency Visit Emergency Visit: Yes ED Registration Date: 07/31/16 Care time: The patient presented to the Emergency Department on the above date and was hospitalized for further evaluation of their emergent condition. - New Patient This patient is new to me today: No - Critical Care Critical Care patient: No
[2016-08-05] MEDS: ATORVASTATIN CA 20 MG TABLET (FP) PO SCH (21:07)
[2016-08-06 07:55] LABS: CREATININE 1.1 mg/dL (0.7-1.3)
[2016-08-06 07:56] LABS: CALCIUM 8.6 mg/dL (8.5-10.1)
[2016-08-06] MEDS ORDERED: PT OWN MED DRAWER 7, Y5N ONE (09:21)
[2016-08-06] MEDS: DABIGATRAN ETEXILATE MESYLATE 150 MG CAPSULE PO SCH (09:22)
[2016-08-06] MEDS: POTASSIUM CHLORIDE TABS 20 MEQ TABLET.ER (FP) PO SCH (09:22)
[2016-08-06] MEDS: FUROSEMIDE 40 MG TABLET (FP) PO SCH (09:22)
[2016-08-06] MEDS: SACUBITRIL/VALSARTAN 24 MG-26 MG TABLET PO SCH (09:22)
--- NOTE | 2016-08-06 14:16 | PN ---
Progress Note (short form) - Note Progress Note: PULMONARY OOB TO WHEELCHAIR IN HALLWAY APPEARS STABLE NOT WEARING O2 VSS ANICTERIC RIGHT BASE DIMINISHED BREATH SOUNDS S1S2 BS+ DIMINISHED EDEMA LABS/MEDS/NOTES/CT/HOSPITALIST DISCUSSION Left Pleural Based Mass vs Loculated Pleural Effusion Seizure HTN Hyperlipidemia Atrial Fibrillation/severely reduced LV function h/o CVA PLAN IS FOR OUTPATIENT THORACENTESIS Bea ASENCIO MD
[2016-08-06 15:05] VITALS: BP 107/44; PULSE 67; TEMP 97.7
--- NOTE | 2016-08-06 15:32 | DS ---
[id number] Rate 18 08/06/16 15:01 Blood Pressure 107/44 08/06/16 15:01 O2 Sat by Pulse Oximetry (%) 98 08/05/16 20:03 Findings/Remarks: PE Neuro: alert, awake, cn 2-12 intact, says he is at hospital Pulm: CTAB CV: s1 s2 irregular rhythm Abd: s nt nd +bs Ext: Warm, no le edema Labs: CBC, BMP 08/01/16 07:35 08/06/16 05:35 Discharge Summary Reason For Visit: ALTERED MENTAL STATUS Current Active Problems Bilateral pleural effusion (Acute) CHF (congestive heart failure) (Acute) Hydrocephalus (Acute) Hypokalemia (Acute) Lung mass (Acute) Pleural effusion (Acute) Progressive dementia with uncertain etiology (Acute) Seizure (Acute) Chronic congestive heart failure (Chronic) History of CVA (cerebrovascular accident) (Chronic) Hyperlipidemia (Chronic) Hypertension (Chronic) Hospital Course: 66 year old male with a history of atrial fib, HTN, HLD, CHF and CVA admitted s/ p witnessed seizure. Imaging: - Head CT 07/31: Moderate diffuse cerebral atrophy with sulcal widening and ventricular dilatation. Amanda-ventricular white matter ischemic changes - MRI brain 07/31: generalized vol loss w/ extensive foci of small vessel infarction in the periventricular white matter - ECHO 08/04: mod dilated LV, LVSF severely reduced, severe global hypokinesis, RVSF nml, mod MR, trace TR, LA mod dilated Plan: 1. Bilateral pleural effusions and possible left pleural mass - Chest CT done shows L pleural mass/collection, per pulm lesion does not appear invasive - Biopsy can happen as outpatient, with Dr. Galvan - D/w , explained she will need to help with outpt bx and PET, she understands and says she will - She would like us to contact pt PCP/artificial limb fitter in the [place] ([place]) to inform him of this issue - Will need to hold AC 2 days prior to bx, possible need heparin gtt, to be discussed with artificial limb fitter - Echo noted above - D/w pulm, appreciate consult 2. CHF, stable - Continue Entresto - Continue Lasix 3. Atrial fibrillation - Cont Pradaxa BID 4. Hypokalemia - Started on K dur 20meq daily; to continue - Replete 40meq x1 today 5. Seizure, new-onset - D/w , confusion states appears chronic, however has been increasing lately , ? early dementia - EEG with slowing and MRI brain negative for acute pathology - Aldolase level wnl, LUPE negative - Pt to follow up with neuro as outpt 6. Hyperlipidemia - Continue Zocor 7. HTN - Continue Valsartan Condition: Guarded - Instructions Diet, Activity, Other Instructions: Please return to the ED with new, persistent, or worsening symptoms. Please follow-up with your primary care provider, pulmonary, and neurology as indicated. Referrals: Murray Carmichael MD [Staff Physician] - (Please follow-up with pulmonary within 3-5 days to schedule an appointment for a thoracentesis) Timmy Beavers [Primary Care Provider] - (Please follow-up with your primary care provider as scheduled on Tuesday08/10/16 at 1:45pm) Sayra Milner MD [Staff Physician] - (Please follow-up with neurology within 1 week. ) Disposition: HOME - Home Medications Comprehensive Discharge Medication List: Ambulatory Orders Dabigatran Etexilate Mesylate [Pradaxa -] 150 mg PO BID 07/31/16 Furosemide [Lasix -] 40 mg PO DAILY 07/31/16 Metolazone [Zaroxolyn -] 10 mg PO WEEKLY 07/31/16 Sacubitril/Valsartan [Entresto 24 mg-26 mg Tablet] 1 each PO BID 07/31/16 Simvastatin [Zocor -] 40 mg PO HS 07/31/16 This patient is new to me today: Yes Date on this admission: 08/06/16 Emergency Visit: Yes ED Registration Date: 07/31/16 Care time: The patient presented to the Emergency Department on the above date and was hospitalized for further evaluation of their emergent condition. Critical Care patient: No - Discharge Referral Referred to [facility] Med P.C.: No
--- NOTE | 2016-09-15 16:11 | PATH ---
Cytology Non-Gynecological Report Patient Name: RALPH DIETZ [facility]. Rec. #: [id number] /Age/Gender: 1950 (Age: 66) / F Account: [id number] Location: EMERGENCY ROOM Taken: 09/13/2016 Received: 09/13/2016 Reported: 09/15/2016 Physicians: Alexus Joyner M.D. Specimen(s) Received LUNG ASPIRATION BIOPSY Clinical History Lung mass Final Diagnosis LUNG, ASPIRATION BIOPSY: NO MALIGNANT CELLS IDENTIFIED. HISTIOCYTES AND MATURE BLOOD ELEMENTS. 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 Clinical and imaging correlations and follow up are suggested. Electronically Signed Freddy Acharya M.D. Gross Description Received is 50 cc of bloody fluid in 50% alcohol. One cytofunnel slide and one cell block are made.
== END 2016-08-06 16:44 | disposition home health service (06) | DRG 101 ==
LOC: JER 05:41 → JERBED 09:42 → EDSEX 09:42 → J6S 23:41
PROVIDERS: ADMIT Internal Medicine; ATTEND Registered Nurse
DX: R56.9 Unspecified convulsions (principal); E78.5 Hyperlipidemia, unspecified; I11.0 Hypertensive heart disease with heart failure; I50.9 Heart failure, unspecified; Z86.73 Personal history of transient ischemic attack (TIA), and cerebral infarction without residual deficits; E87.6 Hypokalemia; I48.91 Unspecified atrial fibrillation; Z79.01 Long term (current) use of anticoagulants; R91.8 Other nonspecific abnormal finding of lung field; F03.90 Unspecified dementia, unspecified severity, without behavioral disturbance, psychotic disturbance, mood disturbance, and anxiety; R29.724 NIHSS score 24
CPT/HCPCS: 36415; 70450-TC; 70551-TC; 71010-TC; 71250-TC; 80048; 80053; 81003; 81015; 82085; 82436; 82465; 82550; 82977; 83605; 83718; 83721; 83735; 84133; 84300; 84478; 84484; 85025; 85027; 85610; 85651; 86038; 86850; 86900; 86901; 87040; 87086; 88305-TC; 93005; 93010; 93306-TC; 95816; 97116-GP; 97162-PG; 99285-25

== ENCOUNTER 2016-09-13 09:39 | Day surgery (SDC) | payer OTHER ==
[2016-09-10 11:50] VITALS: BMI 30.8
[2016-09-13 10:18] LABS: BASOPHIL 0.4 % (0-2.0); MCH 29.4 pg (25.7-33.7); MEAN CELL VOLUME 91.6 fl (80-96); MEAN PLT VOLUME 8.8 fl (7.5-11.1); NEUTROPHILS 70.2 % (42.8-82.8); PLATELET COUNT 159 K/MM3 (134-434); WHITE BLOOD COUNT 6.1 K/mm3 (4.0-10.0)
[2016-09-13 10:31] LABS: INR 1.35 (0.82-1.09); PROTHROMBIN TIME (PATIENT) 14.9 SEC (9.98-11.88)
[2016-09-13 10:33] LABS: ACTIVATED PTT 44.2 SECONDS (26.9-34.4)
[2016-09-13 10:36] VITALS: TEMP 97.5
[2016-09-13 14:11] VITALS: BP 114/66; PULSE 70
== END 2016-09-13 14:20 | disposition home or self-care (01) ==
LOC: JRADIR 09:39
PROVIDERS: ATTEND Internal Medicine
PROC: BW24Y0Z Computerized Tomography (CT Scan) of Chest and Abdomen using Other Contrast, Unenhanced and Enhanced (ICD-10-PCS; principal; 2016-09-13)
PROC: 0BBP3ZX Excision of Left Pleura, Percutaneous Approach, Diagnostic (ICD-10-PCS; 2016-09-13)
DX: D38.2 Neoplasm of uncertain behavior of pleura (principal)
CPT/HCPCS: 36415; 71010-TC; 76098-TC; 77012-TC; 85025; 85610; 85730; 87070; 87075; 87205; 87899

== ENCOUNTER 2016-12-31 06:59 | Inpatient (IN) | payer OTHER ==
[2016-12-31 07:15] VITALS: BMI 28.2
--- NOTE | 2016-12-31 07:15 | PDOC ---
History of Present Illness - General History Source: Family (Daughter in law) Exam Limitations: Clinical Condition - History of Present Illness Initial Comments: 12/31/16 07:39 The patient is a 66 year old male with a significant past medical history of CHF , afib (on pradaxa), DM, CKD, HT, and CVA, who presents to the ER s/p unwitnessed fall. As per daughter in law, patient was in his usual state of health yesterday and went to bed at 22:00 last night. Patients son found him on the floor by bedside at 05:00 this morning. No visible trauma noted. At baseline, patient is verbal and alert. On interview, patient is able to respond to commands but is not verbal. Patient was at this hospital 5 months ago with an episode of fall secondary to seizure. PCP: Dr. Beavers <Alyson Bellamy - Last Filed: 12/31/16 16:19> - General History Source: Family Exam Limitations: Clinical Condition <Jennifer Gomez - Last Filed: 01/02/17 21:33> - General Chief Complaint: CVA/TIA Stated Complaint: RIGHT SIDE HAS MOVEMENT Time Seen by Provider: 12/31/16 07:13 Past History <Alyson Bellamy - Last Filed: 12/31/16 16:19> - Past Medical History Cardiac Disorders: Yes (ATRIAL FIB) CVA: Yes CHF: Yes Dementia: (HX POOR HISTORIAN) Diabetes: Yes HTN: Yes Hypercholesterolemia: Yes Seizures: Yes (HOSPITALIZED IN 07/27) - Surgical History Cardiac Surgery: Yes (stent) - Psycho/Social/Smoking Cessation Hx Suicidal Ideation: No Smoking History: Never smoked Hx Alcohol Use: No Drug/Substance Use Hx: No Substance Use Type: None Hx Substance Use Treatment: No <Jennifer Gomez - Last Filed: 01/02/17 21:33> - Past Medical History Allergies/Adverse Reactions: Allergies Allergy/AdvReac Type Severity Reaction Status Date / Time No Known Allergies Allergy Verified 07/31/16 05:51 Home Medications: Ambulatory Orders Dabigatran Etexilate Mesylate [Pradaxa -] 150 mg PO BID 12/31/16 Furosemide [Lasix -] 40 mg PO DAILY 12/31/16 Sacubitril/Valsartan [Entresto 24 mg-26 mg Tablet] 1 tab PO BID 12/31/16 Review of Systems - Review of Systems Able to Perform ROS?: No <Uts,Alyson - Last Filed: 12/31/16 16:19> *Physical Exam - Vital Signs Last Vital Signs Temp Pulse Resp BP Pulse Ox 73 18 148/98 12/31/16 07:12 12/31/16 07:12 12/31/16 07:12 - Physical Exam Comments: 12/31/16 08:00 GENERAL: Aphasic. The patient is in no acute distress. HEAD: Normal with no signs of trauma. EYES: PERRLA, EOMI, sclera anicteric, conjunctiva clear. ENT: Ears normal, nares patent, oropharynx clear without exudates. Moist mucous membranes. NECK: Normal range of motion, supple without lymphadenopathy, JVD, or masses. LUNGS: Breath sounds equal, clear to auscultation bilaterally. No wheezes, and no crackles. HEART: Irregularly irregular. Normal S1 and S2 without murmur, rub or gallop. ABDOMEN: Soft, nontender, normoactive bowel sounds. No guarding, no rebound. EXTREMITIES: Trace edema in bilateral legs. Normal range of motion, No clubbing or cyanosis. No erythema, or tenderness. NEUROLOGICAL: Left sided base preference. Right hemineglect. Patient is unable to hold up right arm and either legs against gravity. Cranial nerves II through XII grossly intact. MUSCULOSKELETAL: Back non-tender to palpation, no CVA tenderness SKIN: Warm, Dry, normal turgor, no rashes or lesions noted. <MiaAlyson - Last Filed: 12/31/16 16:19> NIH Stroke Scale - Last Known Well Date/Time & Onset Date Last Known Well: 12/30/16 Time Last Known Well: 22:00 - Initial Evaluation Level of consciousness: Not alert, requires repeat stimulation to attend Ask patient the month and their age: Both incorrect Ask patient to open & close eyes; make fist and let go: Obeys both correctly Best gaze (horizontal eye movement): Normal Visual field testing: No visual field loss Facial paresis (Show teeth/raise eyebrows/close eyes tight): Minor paralysis ( flattened nasolabial fold, asymmetry on smiling) Motor Function: Left Arm: Normal Motor Function: Right Arm: Some effort against gravity Motor Function: Left Leg: Some effort against gravity Motor Function: Right Leg: No effort against gravity Limb Ataxia: Present in two limbs Sensory(Use pinprick test arms,legs,trunk,face/side to side): Normal Best language (Describe picture, name items, read sentences): Severe aphasia Dysarthria (read several words): Near unintelligible or unable to speak Extinction and Inattention: No abnormality - Total Score NIH Stroke Scale Score: 18 <Jennifer Gomez - Last Filed: 01/02/17 21:33> tPA Exclusion Checklist 0-3hr - Time Elapsed Date last known well: 12/30/16 Time last known well: 22:00 Elaspsed time: 2 Day(s) and 23 Hour(s) and 33 Minutes - Thrombolytic Therapy Candidate Is the patient eligible for Thrombolytic Therapy?: No - Exclusion Criteria 0-3hr SBP greater than 185 or DBP greater than 110mmHg despite tx: No Recent IC/spinal surgery,head trauma or stroke w/in last 3mo: No Hx of previous IC hemorrhage, IC neoplasm, AVM or aneurysm: No Active internal bleeding: No Blding diathesis(low plt ct, inc PTT,INR>1.7 or use of NOAC): Yes Symptoms suggest subarachnoid hemorrhage: No CT demonstrates multilobar infarct(>1/3 cerebral hemiphere): No Arterial puncture at noncompressible site in previous 7 days: No Blood glucose concentration less than 50mg/dL (2.7mmol/L): No - Relative Exclusion Criteria 0-3h Life expectancy <1yr/severe co-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 Dario Morales: No hyperdense major arterial trunk or gross loss of frankel-white differentiation; moderate white matter presumed microvascular disease changes. No disproportionate ventriculomegaly. Small focus of left periopercular ill- defined relative hyperdensity, possibly artifact but a trace amount of subarachnoid blood is not excluded (image 15). There is no intra-axial hemorrhage, vasogenic edema/focal mass effect or disproportionate ventriculomegaly. The visualized portions of the paranasal sinuses, orbits and tympanomastoid cavities are unremarkable. CT head without contrast impression reported by Jamie Myles: 1. No definitive evidence of acute intracranial hemorrhage, intracranial mass effect, hydrocephalus, or depressed calvarial fracture is appreciated. 2. The visualized portions of the paranasal sinuses are clear. 3. There is white matter disease that is likely the result of chronic ischemic demyelination. If symptoms or concern persists, correlation with follow up CT or MRI is advised, at your clinical discretion. 12/31/16 09:02 Chest XR impression reported by Dr. Gasca: Abnormal chest XR without significant interval change from prior study. Documentation prepared by Alyson Bellamy, acting as medical typist for Jennifer Gomez MD/. <Alyson Bellamy - Last Filed: 12/31/16 16:19> Total Critical Care Time: 60 Critical Care Statement: The care of this patient involved high complexity decision making to prevent further life threatening deterioration of the patient 's condition and/or to evalute & treat vital organ system(s) failure or risk of failure. - Medical Decision Making Note: A portion of this note was documented by scribe services under my direction. I have reviewed the details of the note, within reason, and agree with the documentation with the following case summary and management plan written by me. Nursing documentation reviewed and incorporated into medical decision making 12/31/16 07:[address] Juan kelley Get MRI Give ASA Statin Will need 12/31/16 07:30 Pt awake Now holding up right arm against gravity for a few seconds Attempts to answer question 12/31/16 07:33 12/31/16 07:43 Called by Imaging security incident response engineer: White matter disease Involutional chage No hemorrhage, no mass, no infarct 12/31/16 08:07 Re examination Pt is Aphasic, attempts to speak but can not Able to hold left arm up against gravity, follows my commands Unable to lift right arm Is able to hold left leg up against gravity but it drifts to the bed Is unable to hold up right leg Swallowing study attempted pt swallowed but then coughed Will give ASA 300 pr 12/31/16 08:09 Laboratory Tests 12/31/16 12/31/16 12/31/16 07:23 07:23 07:23 WBC 7.5 Hgb 13.4 Hct 40.9 Plt Count 158 Neutrophils % 70.7 Lymphocytes % 18.6 INR 1.55 H Sodium 141 Potassium 3.3 L Chloride 101 Carbon Dioxide 30 BUN 23 H Creatinine 1.5 H D Random Glucose 101 Creatine Kinase 138 Troponin I 0.03 D 12/31/16 09:14 Case reviewed with hospitalist Will admit to stroke unit <Jennifer Gomez - Last Filed: 01/02/17 21:33> Discharge Disposition <Alyson Bellamy - Last Filed: 12/31/16 16:19> - Discharge Dispostion Admit: Yes <Jennifer Gomez - Last Filed: 01/02/17 21:33> - Diagnosis Cerebrovascular accident (CVA) Qualifiers: CVA mechanism: occlusion Laterality of affected vessel: right - Discharge Dispostion Condition at time of disposition: Fair - Referrals
[2016-12-31 07:29] LABS: BASOPHIL 0.6 % (0-2.0); EOSINOPHIL 0.5 % (0-4.5); MCH 30.1 pg (25.7-33.7); MCHC 32.7 g/dl (32.0-35.9); MEAN CELL VOLUME 91.8 fl (80-96); MEAN PLT VOLUME 8.8 fl (7.5-11.1); NEUTROPHILS 70.7 % (42.8-82.8); PLATELET COUNT 158 K/MM3 (134-434); RDW 13.2 % (11.9-15.9); WHITE BLOOD COUNT 7.5 K/mm3 (4.0-10.0)
[2016-12-31 07:45] LABS: INR 1.55 (0.82-1.09); PROTHROMBIN TIME (PATIENT) 17.2 SEC (9.98-11.88)
[2016-12-31] MEDS: SODIUM CHLORIDE 1,000 ML IV SCH (07:45)
[2016-12-31 07:51] LABS: ALBUMIN 3.5 g/dl (3.4-5.0); ANION GAP 10 (8-16); BILIRUBIN,TOTAL 1.1 mg/dL (0.2-1.0); CALCIUM 9.2 mg/dL (8.5-10.1); CHOLESTEROL 159 mg/dL (50-200); CO2 30 mmol/L (21-32); CREATININE 1.5 mg/dL (0.7-1.3); GLUCOSE,RANDOM 101 mg/dL (74-106); SGOT/AST 19 U/L (15-37); SGPT/ALT 26 U/L (12-78); TOT PROT 7.6 g/dl (6.4-8.2)
[2016-12-31 07:54] LABS: ALK PHOS 95 U/L (45-117); TROPONIN I 0.03 ng/ml (0.00-0.05)
[2016-12-31 08:09] LABS: LDL CHOLESTEROL (ONLY SJRH) 93 mg/dL (5-100)
[2016-12-31] MEDS ORDERED: ASPIRIN 300 MG SUPP.RECT PR ONE (08:10)
[2016-12-31] MEDS ORDERED: ASPIRIN 300 MG SUPP.RECT RC ONE (08:21)
[2016-12-31] MEDS ORDERED: ONDANSETRON 4 MG/2 ML VIAL IVPB PRN (09:19)
--- NOTE | 2016-12-31 09:27 | HP ---
CHIEF COMPLAINT: Right sided weakness and unable to speak PCP: Dr Beavers HISTORY OF PRESENT ILLNESS: 66 y/o AAF male found on the floor by his bed this morning by his daugter. Patient normally lives with who is out of town and was staying with his daughter and son in law and was able to ambulate and talk last night before going to bed. Patient is a poor historian due to his aphasia, but is able to nod or shake his head. Patient admits to falling but denies any head trauma or loc. As per daughter patient was significantly weak on the right side and and had right facial droop and slurred speech. ER course was notable for: (1) CT head: moderate atrophy, ventricular dilatation and moderate to marked periventricular chronic microvascular ischemic changes. superimposed infarct of indeterminate age (2) Aspirin 300mg rectally (3) Neurology consult- no TPA indicated, due to time of onset unknown Recent Travel: none PAST MEDICAL HISTORY: CVA/TIA, CHF, CAD s/p Stent, DM2 PAST SURGICAL HISTORY: Stent placement Social History: Smoking:none Alcohol:none Drugs: none Family History: Non contributory Allergies No Known Allergies Allergy (Verified 07/31/16 05:51) HOME MEDICATIONS: Current Medications Generic Name Dose Route Start Last Admin Trade Name Freq PRN Reason Stop Dose Admin Aspirin 300 mg 12/31/16 10:00 Asa - RC DAILY HERBERT Heparin Sodium (Porcine) 5,000 unit 12/31/16 10:00 Heparin - SQ Q8H-IV HERBERT Sodium Chloride 1,000 mls @ 42 mls/hr 12/31/16 07:15 12/31/16 07:45 Normal Saline - IV 42 mls/hr ASDIR HERBERT Administration Lisinopril 2.5 mg 01/01/17 10:00 Prinivil PO DAILY HERBERT Ondansetron HCl 4 mg 12/31/16 09:19 Zofran Injection IVPB Q6H PRN NAUSEA REVIEW OF SYSTEMS CONSTITUTIONAL: Absent: fever, chills, diaphoresis, generalized weakness, malaise, loss of appetite, weight change HEENT: Absent: rhinorrhea, nasal congestion, throat pain, throat swelling, difficulty swallowing, mouth swelling, ear pain, eye pain, visual changes CARDIOVASCULAR: Absent: chest pain, syncope, palpitations, irregular heart rate, lightheadedness , peripheral edema RESPIRATORY: Absent: cough, shortness of breath, dyspnea with exertion, orthopnea, wheezing, stridor, hemoptysis GASTROINTESTINAL: Absent: abdominal pain, abdominal distension, nausea, vomiting, diarrhea, constipation, melena, hematochezia GENITOURINARY: Absent: dysuria, frequency, urgency, hesitancy, hematuria, flank pain, genital pain MUSCULOSKELETAL: Absent: myalgia, arthralgia, joint swelling, back pain, neck pain SKIN: Absent: rash, itching, pallor HEMATOLOGIC/IMMUNOLOGIC: Absent: easy bleeding, easy bruising, lymphadenopathy, frequent infections ENDOCRINE: Absent: unexplained weight gain, unexplained weight loss, heat intolerance, cold intolerance NEUROLOGIC: Absent: headache, focal weakness or paresthesias, dizziness, unsteady gait, seizure, mental status changes, bladder or bowel incontinence PSYCHIATRIC: Absent: anxiety, depression, suicidal or homicidal ideation, hallucinations. PHYSICAL EXAMINATION Vital Signs - 24 hr 12/31/16 07:12 Pulse Rate 73 Respiratory 18 Rate Blood Pressure 148/98 GENERAL: Awake, alert, and fully oriented, in no acute distress. HEAD: Normal with no signs of trauma. Right facial droop EYES: Pupils equal, round and reactive to light, extraocular movements intact, sclera anicteric, conjunctiva clear. No lid lag. EARS, NOSE, THROAT: Ears normal, nares patent, oropharynx clear without exudates. Moist mucous membranes. NECK: JVD +, Normal range of motion, supple without lymphadenopathy,or masses. LUNGS: Breath sounds equal, clear to auscultation bilaterally. No wheezes, and no crackles. No accessory muscle use. HEART: Regular rate and rhythm, normal S1 and S2 without murmur, rub or gallop. ABDOMEN: Soft, nontender, not distended, normoactive bowel sounds, no guarding, no rebound, no masses. No hepatomegaly or splenomegaly. MUSCULOSKELETAL: Normal range of motion at all joints. No bony deformities or tenderness. No CVA tenderness. UPPER EXTREMITIES: 2+ pulses, warm, well-perfused. No cyanosis. No clubbing. No peripheral edema. RUE 3+,LUE 4+ strength LOWER EXTREMITIES: 2+ pulses, warm, well-perfused. No calf tenderness. No peripheral edema. LLE 3+, RLL2+ strength NEUROLOGICAL: Cranial nerves II-XI intact. Motor aphasia. Unable to assess gait. PSYCHIATRIC: Cooperative. Good eye contact. Appropriate mood and affect. SKIN: Warm, dry, normal turgor, no rashes or lesions noted, normal capillary refill. Laboratory Results - last 24 hr 12/31/16 12/31/16 12/31/16 07:23 07:23 07:23 WBC 7.5 RBC 4.45 Hgb 13.4 Hct 40.9 MCV 91.8 MCHC 32.7 RDW 13.2 Plt Count 158 MPV 8.8 Neutrophils % 70.7 Lymphocytes % 18.6 Monocytes % 9.6 Eosinophils % 0.5 Basophils % 0.6 INR 1.55 H Sodium 141 Potassium 3.3 L Chloride 101 Carbon Dioxide 30 Anion Gap 10 BUN 23 H Creatinine 1.5 H D Creat Clearance w eGFR 46.54 Random Glucose 101 Calcium 9.2 Total Bilirubin 1.1 H AST 19 ALT 26 D Alkaline Phosphatase 95 Creatine Kinase 138 Troponin I 0.03 D Total Protein 7.6 Albumin 3.5 Triglycerides 64 D Cholesterol 159 Total LDL Cholesterol 93 HDL Cholesterol 60 Blood Type Antibody Screen 12/31/16 07:23 WBC RBC Hgb Hct MCV MCHC RDW Plt Count MPV Neutrophils % Lymphocytes % Monocytes % Eosinophils % Basophils % INR Sodium Potassium Chloride Carbon Dioxide Anion Gap BUN Creatinine Creat Clearance w eGFR Random Glucose Calcium Total Bilirubin AST ALT Alkaline Phosphatase Creatine Kinase Troponin I Total Protein Albumin Triglycerides Cholesterol Total LDL Cholesterol HDL Cholesterol Blood Type O POSITIVE Antibody Screen Negative ASSESSMENT/PLAN: Acute Ischemic CVA IV NS @75cc and re-evaluate for fluid overload ASA 325 mg Continue Simvastatin and Lisnopril 2.5 mg Hold metolazone unless signs of fluid overload ECHO MRI Speech and swallow evaluation Neurology consult PT consult Fall risk precautions Aspiration precautions Advance directives discussed- NO HCP, [place] so daughter Inna Hernandez is [place]- Surrogate. DVT prophylaxis Heparin 5000 unit sq q8h Problem List - Problem (1) Cerebrovascular accident (CVA) Code(s): I63.9 - CEREBRAL INFARCTION, UNSPECIFIED Qualifiers: CVA mechanism: occlusion Laterality of affected vessel: right (2) DM2 (diabetes mellitus, type 2) Code(s): E11.9 - TYPE 2 DIABETES MELLITUS WITHOUT COMPLICATIONS Qualifiers: Diabetes mellitus complication status: without complication (3) CHF (congestive heart failure) Assessment/Plan: Consider Cardiology consult for ICD placement Code(s): I50.9 - HEART FAILURE, UNSPECIFIED Qualifiers: Congestive heart failure type: systolic Congestive heart failure chronicity: chronic Qualified Code(s): I50.22 - Chronic systolic ( congestive) heart failure (4) Hypertension Assessment/Plan: Permissive HTN Code(s): I10 - ESSENTIAL (PRIMARY) HYPERTENSION Visit type - Emergency Visit Emergency Visit: Yes Care time: The patient presented to the Emergency Department on the above date and was hospitalized for further evaluation of their emergent condition. - New Patient This patient is new to me today: Yes Date on this admission: 12/31/16 - Critical Care Critical Care patient: No
--- NOTE | 2016-12-31 10:30 | EKG ---
Test Reason : Blood Pressure : / mmHG Vent. Rate : 082 BPM Atrial Rate : 045 BPM P-R Int : 000 ms QRS Dur : 120 ms QT Int : 412 ms P-R-T Axes : 000 155 -55 degrees QTc Int : 481 ms UNDETERMINED RHYTHM : likely atrial fibrilation INCOMPLETE LEFT BUNDLE BRANCH BLOCK NONSPECIFIC ST ABNORMALITY ABNORMAL ECG Confirmed by FRANKLIN PATE MD ([id number]) on 12/31/2016 10:29:37 AM Referred By: Confirmed By:FRANKLIN PAET MD
[2016-12-31] MEDS: ASPIRIN 300 MG SUPP.RECT RC SCH (12:44)
[2016-12-31] MEDS: INSULIN SLIDING SCALE (NOVOLOG) 1 VIAL SQ SCH ×3 (12:45→22:29)
[2016-12-31] MEDS: HEPARIN NA (PORCINE) 5,000 UNITS/ML 1ML VIAL SQ SCH ×3 (13:00→22:32)
[2016-12-31 14:34] LABS: TROPONIN I 0.04 ng/ml (0.00-0.05)
--- NOTE | 2016-12-31 15:27 | CON.NEURO ---
Consult - History of Present Illness History of Present Illness: 66 year old male found to be on floor and brought to hospital for stroke, and he was found to have aphasia and right sdied hemiparesis. Patient is getting jennifer,r now he is able to talk and says his daughter name and difficulty repeating. He had ct scan in ed and it was unremarkable. He has history of STROKE, CHF, CAD and DM He lives iwth his tpa was not given as time of onset is not known. he is on pradaxa and was on hold as suspected to ahve large stroke - Past Medical History Cardio/Vascular: Yes: AFIB, CHF, HTN, Hyperlipdemia - Alcohol/Substance Use Hx Alcohol Use: No - Smoking History Smoking history: Never smoked Have you smoked in the past 12 months: No Home Medications - Allergies Allergies/Adverse Reactions: Allergies Allergy/AdvReac Type Severity Reaction Status Date / Time No Known Allergies Allergy Verified 07/31/16 05:51 - Home Medications Home Medications: Ambulatory Orders Dabigatran Etexilate Mesylate [Pradaxa -] 150 mg PO BID 12/31/16 Furosemide [Lasix -] 40 mg PO DAILY 12/31/16 Sacubitril/Valsartan [Entresto 24 mg-26 mg Tablet] 1 tab PO BID 12/31/16 Physical Exam-Neuro Vital Signs: Vital Signs Temperature 98.1 F 12/31/16 12:46 Pulse Rate 75 12/31/16 12:46 Respiratory Rate 20 12/31/16 12:46 Blood Pressure 143/76 12/31/16 12:46 O2 Sat by Pulse Oximetry (%) 100 12/31/16 10:45 Labs: INR, PTT INR 1.55 (0.82-1.09) H 12/31/16 07:23 NIH Stroke Scale - Total Score NIH Stroke Scale Score: 0 Imaging - Results Cat Scan: Image Reviewed Assessment/Plan aphasia and right sided weakness 66 year old male found to be on floor and brought to hospital for stroke, and he was found to have aphasia and right sdied hemiparesis. Patient is getting jennifer,r now he is able to talk and says his daughter name and difficulty repeating. He had ct scan in ed and it was unremarkable. He has history of STROKE, CHF, CAD and DM He lives iwth his tpa was not given as time of onset is not known. he is on pradaxa and was on hold as suspected to ahve large stroke Past Medical History as above Neurological Examination failed swallowing test, alert follow simple command was able to name his daughter and tell his name, and not able to name place , where he is he has trouble repeating no facae asymmetry, pupils are reactive moving all extremity , right sided slightly weakner ( grade 5- on right side) ct head reviewed unremarkable Assessment- Left mca stroke, clinically has improved, failed swallowing , risk factor dm, cad, atrial fibrillation was on pradaxa Plan hold pradaxa till we have mri as he may have large left mca stroke - continue aspirin and statin - mri of brain carotid ultrasound speech, pt and dvt prophylaxis thanks for consult Ildefonso Marquez MD
--- NOTE | 2016-12-31 16:32 | CONSULT ---
Admitting History and Physical - Past Medical History Cardiovascular: Yes: AFIB, CHF, HTN, Hyperlipdemia - Smoking History Smoking history: Never smoked Have you smoked in the past 12 months: No - Alcohol/Substance Use Hx Alcohol Use: No History - Admission Reason For Visit: CVA - Hearing Hearing: Normal Hearing Aide: No With Patient: No Speech Evaluation - Communication Primary Language: POLISH Communication: Yes: Aphasia (Expressive aphasia noted.) Oral Expression Ability: Yes: Moderate Impairment (Answers y/n questions. Has difficulty with connected speech, naming, and rote speech.) - Speech Production Apraxia: Yes Able to Make Needs Known: Yes: Moderately Impaired Intelligibility: Yes: Moderately Impaired - Speech Characteristics Voice Loudness: Normal Voice Pitch: Yes: Normal Voice Phonatory-based Quality: Yes: Normal Speech Pattern: Impaired (Secondary to expressive aphasia) Speech Clarity: < 75% Nasal Resonance: Normal Articulation: Yes: Imprecise Dysfluency: Yes: Tonic - Language/Auditory Comprehension Follows: Yes: 1 Stage Simple Commands (WFL), 2 Stage Simple Commands (Has difficulty.) Observation: Able to respond to yes/no queries: Yes, Yes/No Confusion: Yes (at times, ), Comprehends Conversational Speech: Yes, Benefits from Slow Speech: Yes , Benefits from Repetiton: Yes, Benefits from Increased Volume of Speech: No - Language/Verbal Expression Aphasia: Yes: Nonfluent, Apraxia, Sound Errors Able to Respond to Simple Queries: Yes: WNL Able to Communicate Wants and Needs: Yes: Moderately Impaired Functional Communication Status: Yes: Moderately Impaired Aware of Errors: No Attempts to Correct Errors: No Use of Gestures: Yes Written Expression: not examined Oral Expression: Has difficulty communicating biographic information, state of being, or confrontation naming. 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 Jaw Position: Open at Rest Against Resistance Opening: Weak Against Resistance Closing: Weak Pucker Lips: Droops Right, Weak Smile: Droops Right Lips, Comment: mild weakness observed but functional for speech and swallowing purposes. Lingual Movement: Symmetric, Apraxic, Other (Pt demonstrates difficulty following direction with tongue movement using visual and verbal cues.) Lingual Speed of Movement: Reduced Lingual Movement Strgth Against Opposition: Normal Lingual Movement Characteristics: Fasciculations, Apraxic Lingual Comment: mild weakness observed but functional for speech and swallowing purposes. Soft Palate Description: Normal Color, Normal Arch Hard Palate Description: Normal Color, Normal Arch Gag Reflex: Strong Bite Reflex: Present Velopharyngeal Movement: Weak Right Laryngeal Elevation: WFL Laryngeal Movement: Able to Palpate Needs Assistance: Yes Rate of Intake: Slow/Holding Bolus Size: WFL Labial Seal: WFL Chewing: WFL Oral Prep Time: Increased (Pt requires assistance getting bolus to mouth) A-P Transit: Impaired (increased transit time.) Pocketing: None Odynophagia: Oral Coughing/Throat Clear: No Change in Voice: No Other Findings/Remarks: 66 yo male seen by MATRIX BATH ATTENDANT at bedside for swallow eval to r/o dysphagia. Pt is minimally verbal with expressive aphasia. A&Ox1 cooperative and can follow some directive with visual models. Pt was found on floor by family member unable to speak and ambulate. Pt presents with mild right side weakness, facial droop, and reduced intelligibility. PMHX includes CVA/TIA CHF CAD s/p stent Pt given po trials of pureed, soft solids with assistance revealed good acceptance, adequate mastication, increased A-P transit time. Pharyngeal swallows appears to be timely with no cough, respiration or changes in voicing. Pt given po trials of ice chips, and thin liquids with some assistance holding the cup revealed reduced labial containment, adequate increased A-P transit time. Pharyngeal swallows appears to be timely with no cough, respiration or changes in voicing. Recommendations - Speech Evaluation, Impression/Plan Impression: 66 yo male presents with moderate expressive aphasia. Pt also presents with mild to moderate dysphagia secondary to right side weakness. No evidence of aspiration observed during the clinical bedside evaluation at this time. [facility] Goals: Tolerate the least restrictive diet without s/s of aspiration. Short Term Goals: Tolerate soft solids and thin liquids with no s/s of aspiration. - Dysphagia Impressions/Plan Swallowing Skills: Impaired (secondary to right side weakness.) Dysphagia Impressions: Mild Impairment, Moderate Impairment *Silent aspiration: cannot be R/O at bedside Dysphagia Treatment Plan: Safe Rate, Elevate HOB during feed, Other (monitor nutritional intake and pulmonary status. Meds can be given whole) Dysphagia Evaluation Summary: 66 yo male presents with mild oral prep and oral phase dysphagia. Pt requires assistance during meals secondary to right sided weakness. Redused labial containment with thin liquids. Increase A-P transport with solid boluses. No evidence of aspiration on any bolus offer at bedside at this time. Results given to scrap charger Lora verbally and to pcp via chart. - Recommendations Diet Consistency: Mechanical Soft Medication Administration: Whole with water Liquids: Thin Liquids
[2016-12-31] MEDS ORDERED: POTASSIUM CHLORIDE ORAL LIQUID 20 MEQ/15 ML PO ONE (18:35)
[2017-01-01] MEDS: HEPARIN NA (PORCINE) 5,000 UNITS/ML 1ML VIAL SQ SCH ×3 (06:41→21:43)
[2017-01-01] MEDS: INSULIN SLIDING SCALE (NOVOLOG) 1 VIAL SQ SCH ×4 (06:41→21:43)
--- NOTE | 2017-01-01 08:26 | PN ---
Physical Exam: SUBJECTIVE: Patient seen and examined Patient is a 66 y/o AAF male was found on the floor by his bed this morning by his daughter. Patient normally lives with who is out of town and was staying with his daughter and son in law and was able to ambulate and talk last night before going to bed. OBJECTIVE: Vital Signs Temperature 98.3 F 01/01/17 06:39 Pulse Rate 71 01/01/17 06:39 Respiratory Rate 16 01/01/17 06:39 Blood Pressure 135/88 01/01/17 06:39 O2 Sat by Pulse Oximetry (%) 100 12/31/16 21:00 GENERAL: alert follows simple command,was able to name his daughter and tell his name, and not able to name place. Awake, alert. in no acute distress. HEAD: Normal with no signs of trauma. EYES: PERRL, extraocular movements intact, sclera anicteric, conjunctiva clear. ENT: Ears normal, oropharynx clear without exudates, moist mucous membranes. Failed swallowing test NECK: Trachea midline, full range of motion, supple. LUNGS: Breath sounds equal, clear to auscultation bilaterally, no wheezes, no crackles, no accessory muscle use. HEART: Regular rate and rhythm, S1, S2 without murmur, rub or gallop. ABDOMEN: Soft, nontender, nondistended, normoactive bowel sounds, no guarding, no rebound, no hepatosplenomegaly, no masses. EXTREMITIES: 2+ pulses, warm, well-perfused, no edema. NEUROLOGICAL:Cn2-12 grossly intact.has trouble repeating the words, no facial asymmetry. Able to move all his extremities. Right side is weaker 4/5, left 5/5 SKIN: Warm, dry, normal turgor, no rashes or lesions noted CBCD WBC 7.5 K/mm3 (4.0-10.0) 12/31/16 07:23 RBC 4.45 M/mm3 (4.00-5.60) 12/31/16 07:23 Hgb 13.4 GM/dL (11.7-16.9) 12/31/16 07:23 Hct 40.9 % (35.4-49) 12/31/16 07:23 MCV 91.8 fl (80-96) 12/31/16 07:23 MCHC 32.7 g/dl (32.0-35.9) 12/31/16 07:23 RDW 13.2 % (11.9-15.9) 12/31/16 07:23 Plt Count 158 K/MM3 (134-434) 12/31/16 07:23 MPV 8.8 fl (7.5-11.1) 12/31/16 07:23 CMP Sodium 141 mmol/L (136-145) 12/31/16 07:23 Potassium 3.3 mmol/L (3.5-5.1) L 12/31/16 07:23 Chloride 101 mmol/L (98-107) 12/31/16 07:23 Carbon Dioxide 30 mmol/L (21-32) 12/31/16 07:23 Anion Gap 10 (8-16) 12/31/16 07:23 BUN 23 mg/dL (7-18) H 12/31/16 07:23 Creatinine 1.5 mg/dL (0.7-1.3) H D 12/31/16 07:23 Creat Clearance w eGFR 46.54 (>60) 12/31/16 07:23 Random Glucose 101 mg/dL (74-106) 12/31/16 07:23 Calcium 9.2 mg/dL (8.5-10.1) 12/31/16 07:23 Total Bilirubin 1.1 mg/dL (0.2-1.0) H 12/31/16 07:23 AST 19 U/L (15-37) 12/31/16 07:23 ALT 26 U/L (12-78) D 12/31/16 07:23 Alkaline Phosphatase 95 U/L (45-117) 12/31/16 07:23 Total Protein 7.6 g/dl (6.4-8.2) 12/31/16 07:23 Albumin 3.5 g/dl (3.4-5.0) 12/31/16 07:23 CARDIAC ENZYMES Creatine Kinase 175 IU/L (39-308) D 12/31/16 13:45 Troponin I 0.04 ng/ml (0.00-0.05) D 12/31/16 13:45 Laboratory Results - last 24 hr 12/31/16 12/31/16 12/31/16 12:23 13:45 13:45 POC Glucometer 103 Creatine Kinase 175 D Creatine Kinase Index 0.8 CK-MB (CK-2) 1.387 CK-MB (CK-2) Rel Index Cancelled Troponin I 0.04 D 12/31/16 12/31/16 01/01/17 16:32 21:57 06:07 POC Glucometer 101 129 99 Creatine Kinase Creatine Kinase Index CK-MB (CK-2) CK-MB (CK-2) Rel Index Troponin I Active Medications Generic Name Dose Route Start Last Admin Trade Name Freq PRN Reason Stop Dose Admin Aspirin 300 mg 12/31/16 10:00 12/31/16 12:44 Asa - RC Not Given DAILY HERBERT Heparin Sodium (Porcine) 5,000 unit 12/31/16 22:00 01/01/17 06:41 Heparin - SQ 5,000 unit TID HERBERT Administration Sodium Chloride 1,000 mls @ 42 mls/hr 12/31/16 07:15 12/31/16 07:45 Normal Saline - IV 42 mls/hr ASDIR HERBERT Administration Insulin Aspart 1 vial 12/31/16 11:00 01/01/17 06:41 Novolog Vial Sliding Scale - SQ Not Given ACHS HEBRERT Protocol Lisinopril 2.5 mg 01/01/17 10:00 Prinivil PO DAILY HERBERT Ondansetron HCl 4 mg 12/31/16 09:19 Zofran Injection IVPB Q6H PRN NAUSEA Home Medications Medication Instructions Recorded Dabigatran Etexilate Mesylate 150 mg PO BID 12/31/16 [Pradaxa -] Furosemide [Lasix -] 40 mg PO DAILY 12/31/16 Sacubitril/Valsartan [Entresto 24 1 tab PO BID 12/31/16 mg-26 mg Tablet] History of stroke Bilateral carotid Doppler ultrasound Grayscale, pulsed Doppler and color Doppler interrogation of both carotid and both vertebral arteries was performed. The right common carotid, internal and external external carotid artery were identified with a peak systolic velocity of 55, 75 and 94 cm/sec, respectively. The left common carotid, internal and external carotid artery were identified with a peak systolic velocity of 68, 52 and 80 cm /sec, respectively. Flow in the physiologic direction was documented in both vertebral arteries. Impression: Moderate intimal thickening in the right common carotid artery and at the bifurcation with small-to -moderate sized soft plaque at the level of the bulb without evidence of hemodynamically significant stenosis. There is also moderate intimal thickening in the internal and external carotid artery. Moderate intimal thickening in the left common carotid artery and bifurcation with moderate size calcified plaques at the level of the bulb without evidence of hemodynamically significant stenosis. There is also intimal thickening in the proximal internal and external carotid artery Correlation with CT angiogram of the neck would be helpful for further evaluation. Stroke. COMPARISON: September 13, 2016. Moderately lordotic portable chest film shows cardiomegaly and congestive changes as previously. The moderate pleural- parenchymal density on the left is also not significantly changed. IMPRESSION: Abnormal chest x-ray without significant interval change from prior study. Clinical correlation and follow-up suggested. CT scan of the brain without intravenous contrast. No prior is available for comparison. There is moderate atrophy, ventricular dilatation and moderate to marked periventricular chronic microvascular ischemic changes. Asymmetric lucency in the right frontal high convexity that may be on the basis of chronic microvascular ischemic changes. A superimposed infarct, of indeterminate age , likely old cannot be ruled out. Otherwise, no mass lesion, gross acute infarct or intracranial hemorrhage is seen. There is no shift of midline structures. Subcentimeter retention cyst versus polyp in the left maxillary antrum, medially. Another smaller one is seen on the right side. Calcification of the cavernous carotid arteries are present. The mastoid air cells are well aerated and the calvarium is intact IMPRESSION: Moderate to marked chronic microvascular ischemic changes with asymmetric lucency in the right frontal high convexity, cannot rule out an infarct of indeterminate age, likely chronic. Correlate clinically and further evaluation with MRI is needed. A preliminary report was forwarded by the [facility] service, ASSESSMENT/PLAN: Patient is a 66 y/o AAF male with Hx of T2DM, HTN, CHF presented to the emergency room with acute cva ; was not given tpa as time of onset was unknown. Patient admits to falling but denies any head trauma or loc. As per daughter patient was significantly weak on the right side and and had right facial droop and slurred speech. # Acute Ischemic CVA ; Left MCA stroke. Stroke protocol , rectal ASA, Simvastatin and Lisnopril 2.5 mg ;ECHO ordered ;MRI ordered ;Speech and swallow evaluated; Neurology consult appreciated ,PT consult ,Fall risk precautions, Aspiration precautions. Risks factor for CVA: T2DM, cad, atrial fibrillation was on pradaxa ; is on hold now since possibility of having large stroke. Neuro consult appreciated. # T2DM on sliding scale with coverage #CHF (congestive heart failure): Cardiology consult for ICD placement # Hypertension on lisinopril DVT prophylaxis Heparin 5000 unit sq q8h He is on pradaxa and was on hold as suspected to have large stroke Visit type - Emergency Visit Emergency Visit: Yes ED Registration Date: 12/31/16 Care time: The patient presented to the Emergency Department on the above date and was hospitalized for further evaluation of their emergent condition. - New Patient This patient is new to me today: Yes Date on this admission: 01/01/17 - Critical Care Critical Care patient: No
[2017-01-01 08:29] LABS: BASOPHIL 0.7 % (0-2.0); EOSINOPHIL 0.6 % (0-4.5); MCHC 33.4 g/dl (32.0-35.9); MEAN CELL VOLUME 89.8 fl (80-96); NEUTROPHILS 70.2 % (42.8-82.8); PLATELET COUNT 156 K/MM3 (134-434); RDW 13.1 % (11.9-15.9); WHITE BLOOD COUNT 5.4 K/mm3 (4.0-10.0)
[2017-01-01 08:41] LABS: ANION GAP 6 (8-16); CALCIUM 9.4 mg/dL (8.5-10.1); CO2 29 mmol/L (21-32); GLUCOSE,RANDOM 96 mg/dL (74-106); MAGNESIUM 1.8 mg/dL (1.8-2.4); PHOSPHOROUS 2.7 mg/dL (2.5-4.9)
[2017-01-01 08:49] LABS: THYROID STIMULATING HORMONE 2.42 uIU/ml (0.358-3.74)
[2017-01-01] MEDS ORDERED: INSULIN SLIDING SCALE (NOVOLOG) 1 VIAL SQ SCH (08:57)
[2017-01-01] MEDS: LISINOPRIL 5 MG TABLET (FP) PO SCH (09:26)
[2017-01-01] MEDS: ASPIRIN 300 MG SUPP.RECT RC SCH (09:27)
[2017-01-01] MEDS: SODIUM CHLORIDE 1,000 ML IV SCH (09:30)
[2017-01-01] MEDS: ASPIRIN 325 MG ENTERIC COATED TABLET (FP) PO SCH (10:11)
--- NOTE | 2017-01-01 11:18 | CON.CARD ---
Consult Consult Specialty:: Cardiology Referred by:: Hospitalist Reason for Consultation:: Cardiac evaluation - History of Present Illness Chief Complaint: Post stroke History of Present Illness: Patient is a 66 year old male with underlying history of CAD s/ p PCI/stent, hypertension and type 2 diabetes mellitus who presents after being found on the floor by his bed by his family. Initially, patient was found with aphasia and a poor historian. He also had right sided weakness and facial droop and slurred speech. He is able to respond to verbal command and is able to answer questions. He denies chest pain, shortness of breath or palpitations. He denies paroxysmal nocturnal dyspnea or orthopnea. He denies headache or lightheadedness. He has underlying history of atrial fibrillation and was on Pradaxa which has been stopped on the hospitalization. CT of head revealed moderate atrophy, ventricular dilatation and moderate to marked periventricular chronic microvascular ischemic changes and superimposed infarct. Patient was evaluated by Neurology and TPA was not given due to unknown time of onset. Cardiology consultation was called for further evaluation. - History Source History Provided By: Patient, Medical Record Limitations to Obtaining History: Poor Historian - Past Medical History Cardio/Vascular: Yes: AFIB, CHF, HTN, Hyperlipdemia Endocrine: Yes: Diabetes Mellitus - Past Surgical History Past Surgical History: Yes: Cataract Removal - Alcohol/Substance Use Hx Alcohol Use: No - Smoking History Smoking history: Never smoked Have you smoked in the past 12 months: No Home Medications - Allergies Allergies/Adverse Reactions: Allergies Allergy/AdvReac Type Severity Reaction Status Date / Time No Known Allergies Allergy Verified 07/31/16 05:51 - Home Medications Home Medications: Ambulatory Orders Dabigatran Etexilate Mesylate [Pradaxa -] 150 mg PO BID 12/31/16 Furosemide [Lasix -] 40 mg PO DAILY 12/31/16 Sacubitril/Valsartan [Entresto 24 mg-26 mg Tablet] 1 tab PO BID 12/31/16 Family Disease History - Family Disease History Family History: Denies Review of Systems - Review of Systems Constitutional: denies: Chills, Fever Cardiovascular: denies: Chest Pain, Palpitations, Shortness of Breath Respiratory: denies: Cough, Hemoptysis, Orthopnea, PND, SOB, SOB on Exertion Gastrointestinal: denies: Abdominal Pain, Constipation, Diarrhea, Melena, Nausea , Rectal Bleeding, Vomiting Neurological: denies: Dizziness, Headache, Numbness, Parasthesia, Seizure, Syncope Vital Signs: Vital Signs Temperature 98.3 F 01/01/17 06:39 Pulse Rate 71 01/01/17 06:39 Respiratory Rate 16 01/01/17 06:39 Blood Pressure 135/88 01/01/17 06:39 O2 Sat by Pulse Oximetry (%) 100 12/31/16 21:00 Neck: Yes: Supple Respiratory: Yes: Regular, CTA Bilaterally Gastrointestinal: Yes: Normal Bowel Sounds, Soft. No: Tenderness Cardiovascular: Yes: Regular Rate and Rhythm JVD: No Carotid Bruit: No PMI: Non-Displaced Heart Sounds: Yes: S1, S2. No: Gallop Murmur: Yes: Systolic Murmur, Grade 1 Edema: No - Other Data Labs, Other Data: CBC, BMP 01/01/17 06:00 01/01/17 06:00 INR, PTT INR 1.55 (0.82-1.09) H 12/31/16 07:23 Troponin, BNP 12/31/16 13:45 Troponin I 0.04 D Troponin, BNP 12/31/16 13:45 Troponin I 0.04 D Imaging - Results Chest X-ray: Report Reviewed (Congestive changes) Cat Scan: Report Reviewed (Head CT as outlined) EKG: Report Reviewed Problem List - Problems (1) Cerebrovascular accident (CVA) Code(s): I63.9 - CEREBRAL INFARCTION, UNSPECIFIED Qualifiers: CVA mechanism: occlusion Laterality of affected vessel: right (2) DM2 (diabetes mellitus, type 2) Code(s): E11.9 - TYPE 2 DIABETES MELLITUS WITHOUT COMPLICATIONS Qualifiers: Diabetes mellitus complication status: without complication (3) CHF (congestive heart failure) Code(s): I50.9 - HEART FAILURE, UNSPECIFIED Qualifiers: Congestive heart failure type: systolic Congestive heart failure chronicity: chronic Qualified Code(s): I50.22 - Chronic systolic ( congestive) heart failure (4) Hyperlipidemia Code(s): E78.5 - HYPERLIPIDEMIA, UNSPECIFIED Qualifiers: Hyperlipidemia type: pure hypercholesterolemia Qualified Code(s): E78.00 - Pure hypercholesterolemia, unspecified; E78.0 - Pure hypercholesterolemia (5) Hypertension Code(s): I10 - ESSENTIAL (PRIMARY) HYPERTENSION Qualifiers: Hypertension type: essential hypertension Qualified Code(s): I10 - Essential (primary) hypertension (6) Atrial fibrillation Code(s): I48.91 - UNSPECIFIED ATRIAL FIBRILLATION Qualifiers: Atrial fibrillation type: permanent Qualified Code(s): I48.2 - Chronic atrial fibrillation (7) CAD (coronary artery disease) Code(s): I25.10 - ATHSCL HEART DISEASE OF [place] CORONARY ARTERY W/O ANG PCTRS Qualifiers: Coronary Disease-Associated Artery/Lesion type: [place] artery [place] vs. transplanted heart: [place] heart Associated angina: without angina Qualified Code(s): I25.10 - Atherosclerotic heart disease of [place] coronary artery without angina pectoris (8) History of percutaneous coronary intervention Code(s): Z98.890 - OTHER SPECIFIED POSTPROCEDURAL STATES Assessment/Plan 1. CVA with residual right sided weakness - better speech and no facial droop 2. Permanent atrial fibrillation on Pradaxa - which was stopped 3. Hypertension 4. Hypercholesterolemia 5. Type 2 diabetes mellitus 6. Probable class 2 NYHA classification LV heart failure - patient has been on Entresto as outpatient 7. Carotid artery disease PLAN: 1. Currently started on Prinivil - consider restarting on Entresto if still clinically indicated (to be determined) 2. Pradaxa has been stopped as per Neurology - but will need to be placed back on NOAC 3. Continue Lipitor 4. Transthoracic echocardiography to assess LV and valvular function 5. Neurology follow up. Further work up as per Neurology Further plans are to follow Patient sees a organisation and methods analyst affiliated with [facility], but does not remember the name Eugene Ivan MD
[2017-01-01] MEDS ORDERED: INSULIN (NOVOLOG) ASPART 100 UNITS/ML 10ML VIAL ONE (12:12)
[2017-01-01] MEDS: ATORVASTATIN CA 40 MG TABLET (FP) PO SCH (21:43)
[2017-01-01] MEDS ORDERED: IBUPROFEN 800 MG/8 ML IJ IVPB ONE (23:12)
[2017-01-01] MEDS ORDERED: LORazepam 0.5 MG TABLET PO ONE (23:20)
[2017-01-01] MEDS ORDERED: LORAZEPAM CARPU-JECT 2 MG/ML DISP.SYRIN IVPUSH ONE (23:40)
--- NOTE | 2017-01-02 01:14 | HOSP ---
Subjective - Review of Symptoms Events since last encounter: Pt continuously attempts to leave bed despite being instructed to stay in bed. Pt is AAOx1, is oriented to self but not to place or time. Despite warning pt to remain in bed he states that he knows he won't fall and knows how to stay safe and attempts to slip through hand rails on bed to get up. Wrist restraints renewed. Ativan 0.5 mg po once ordered but pt refuses to take PO meds at this time. Ativan 0.5 mg IV once ordered. Physical Examination Vital Signs: Vital Signs Temperature 97.8 F 01/01/17 21:46 Pulse Rate 80 01/01/17 21:46 Respiratory Rate 16 01/01/17 21:46 Blood Pressure 137/90 01/01/17 21:46 O2 Sat by Pulse Oximetry (%) 100 01/01/17 09:00 Labs: CBC, BMP 01/01/17 06:00 01/01/17 06:00 Visit type - Emergency Visit Emergency Visit: Yes ED Registration Date: 12/31/16 Care time: The patient presented to the Emergency Department on the above date and was hospitalized for further evaluation of their emergent condition. - New Patient This patient is new to me today: Yes Date on this admission: 01/02/17 - Critical Care Critical Care patient: No
[2017-01-02] MEDS: INSULIN SLIDING SCALE (NOVOLOG) 1 VIAL SQ SCH ×4 (06:09→21:15)
[2017-01-02] MEDS: HEPARIN NA (PORCINE) 5,000 UNITS/ML 1ML VIAL SQ SCH ×3 (06:35→21:16)
[2017-01-02] MEDS ORDERED: INSULIN (NOVOLOG) ASPART 100 UNITS/ML 10ML VIAL ONE (06:43)
[2017-01-02 08:16] LABS: ALBUMIN 3.2 g/dl (3.4-5.0); ANION GAP 8 (8-16); CHOLESTEROL 159 mg/dL (50-200); CO2 29 mmol/L (21-32); GLUCOSE,RANDOM 90 mg/dL (74-106); SGOT/AST 23 U/L (15-37); SGPT/ALT 21 U/L (12-78)
[2017-01-02 08:18] LABS: ALK PHOS 87 U/L (45-117); BILIRUBIN,TOTAL 1.5 mg/dL (0.2-1.0); LDL CHOLESTEROL (ONLY SJRH) 92 mg/dL (5-100); TOT PROT 7.5 g/dl (6.4-8.2)
--- NOTE | 2017-01-02 09:32 | PN ---
Progress Note, Physician Chief Complaint: Not in distress History of Present Illness: Patient was seen and examined. Awake and alert. Chart was reviewed Denies chest pain, SOB or palpitations - Current Medication List Current Medications: Active Medications Aspirin (Ecotrin -) 325 mg PO DAILY [facility] Last Admin: 01/01/17 10:11 Dose: 325 mg Atorvastatin Calcium (Lipitor -) 40 mg PO HS [facility] Last Admin: 01/01/17 21:43 Dose: 40 mg Heparin Sodium (Porcine) (Heparin -) 5,000 unit SQ TID [facility] Last Admin: 01/02/17 06:35 Dose: 5,000 unit Insulin Aspart (Novolog Vial Sliding Scale -) 1 vial SQ ACHS [facility] PRN Reason: Protocol Last Admin: 01/02/17 06:09 Dose: Not Given Lisinopril (Prinivil) 2.5 mg PO DAILY [facility] Last Admin: 01/01/17 09:26 Dose: 2.5 mg Ondansetron HCl (Zofran Injection) 4 mg IVPB Q6H PRN PRN Reason: NAUSEA - Objective Vital Signs: Vital Signs Temperature 97.6 F 01/02/17 05:46 Pulse Rate 62 01/02/17 05:46 Respiratory Rate 16 01/02/17 05:46 Blood Pressure 138/87 01/02/17 05:46 O2 Sat by Pulse Oximetry (%) 100 01/01/17 21:00 Neck: Yes: Supple Cardiovascular: Yes: Regular Rate and Rhythm, S1, S2. No: Murmur Respiratory: Yes: CTA Bilaterally Gastrointestinal: Yes: Normal Bowel Sounds, Soft. No: Tenderness Edema: No Additional Findings/Remarks: - Review of Systems Constitutional: denies: Chills, Fever Cardiovascular: denies: Chest Pain, Palpitations, Shortness of Breath Respiratory: denies: Cough, Hemoptysis, Orthopnea, PND, SOB, SOB on Exertion Gastrointestinal: denies: Abdominal Pain, Constipation, Diarrhea, Melena, Nausea , Rectal Bleeding, Vomiting Neurological: denies: Dizziness, Headache, Numbness, Parasthesia, Seizure, Syncope Labs: CBC, BMP 01/01/17 06:00 01/02/17 06:25 Problem List - Problems (1) Cerebrovascular accident (CVA) Code(s): I63.9 - CEREBRAL INFARCTION, UNSPECIFIED Qualifiers: CVA mechanism: occlusion Laterality of affected vessel: right (2) DM2 (diabetes mellitus, type 2) Code(s): E11.9 - TYPE 2 DIABETES MELLITUS WITHOUT COMPLICATIONS Qualifiers: Diabetes mellitus complication status: without complication Diabetes mellitus fci insulin use: without fci use Qualified Code(s): E11.9 - Type 2 diabetes mellitus without complications (3) CHF (congestive heart failure) Code(s): I50.9 - HEART FAILURE, UNSPECIFIED Qualifiers: Congestive heart failure type: systolic Congestive heart failure chronicity: chronic Qualified Code(s): I50.22 - Chronic systolic ( congestive) heart failure (4) Hyperlipidemia Code(s): E78.5 - HYPERLIPIDEMIA, UNSPECIFIED Qualifiers: Hyperlipidemia type: pure hypercholesterolemia Qualified Code(s): E78.00 - Pure hypercholesterolemia, unspecified; E78.0 - Pure hypercholesterolemia (5) Hypertension Code(s): I10 - ESSENTIAL (PRIMARY) HYPERTENSION Qualifiers: Hypertension type: essential hypertension Qualified Code(s): I10 - Essential (primary) hypertension (6) Atrial fibrillation Code(s): I48.91 - UNSPECIFIED ATRIAL FIBRILLATION Qualifiers: Atrial fibrillation type: permanent Qualified Code(s): I48.2 - Chronic atrial fibrillation (7) CAD (coronary artery disease) Code(s): I25.10 - ATHSCL HEART DISEASE OF [place] CORONARY ARTERY W/O ANG PCTRS Qualifiers: Coronary Disease-Associated Artery/Lesion type: [place] artery [place] vs. transplanted heart: [place] heart Associated angina: without angina Qualified Code(s): I25.10 - Atherosclerotic heart disease of [place] coronary artery without angina pectoris (8) History of percutaneous coronary intervention Code(s): Z98.890 - OTHER SPECIFIED POSTPROCEDURAL STATES Assessment/Plan 1. CVA with residual right sided weakness - better speech and no facial droop 2. Permanent atrial fibrillation on Pradaxa - held 3. Hypertension 4. Hypercholesterolemia 5. Type 2 diabetes mellitus 6. Probable class 2 NYHA classification LV heart failure - patient has been on Entresto as outpatient 7. Carotid artery disease PLAN: 1. Currently started on Prinivil - consider restarting on Entresto if still clinically indicated (to be determined) 2. Pradaxa has been stopped as per Neurology - but will need to be placed back on NOAC when cleared 3. Continue Lipitor 4. Transthoracic echocardiography to assess LV and valvular function 5. Neurology follow up. Further work up as per Neurology 6. 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
[2017-01-02] MEDS ORDERED: POTASSIUM CHLORIDE TABS 20 MEQ TABLET.ER (FP) PO ONE ×2 (09:34→20:19)
[2017-01-02] MEDS: ASPIRIN 325 MG ENTERIC COATED TABLET (FP) PO SCH (09:35)
[2017-01-02] MEDS: LISINOPRIL 5 MG TABLET (FP) PO SCH ×2 (09:35→09:46)
--- NOTE | 2017-01-02 20:17 | PN ---
Progress Note (short form) - Note Progress Note: Comfortable with no acute distress. Vital Signs Temperature 98.1 F 01/02/17 17:21 Pulse Rate 63 01/02/17 17:21 Respiratory Rate 20 01/02/17 17:21 Blood Pressure 141/78 01/02/17 17:21 O2 Sat by Pulse Oximetry (%) 100 01/02/17 09:00 GENERAL: alert follows simple command,was able to name his daughter and tell his name, and not able to name place. Awake, alert. in no acute distress. HEAD: Normal with no signs of trauma. EYES: PERRL, extraocular movements intact, sclera anicteric, conjunctiva clear. ENT: Ears normal, oropharynx clear without exudates, moist mucous membranes. Failed swallowing test NECK: Trachea midline, full range of motion, supple. LUNGS: Breath sounds equal, clear to auscultation bilaterally, no wheezes, no crackles, no accessory muscle use. HEART: Regular rate and rhythm, S1, S2 without murmur, rub or gallop. ABDOMEN: Soft, nontender, nondistended, normoactive bowel sounds, no guarding, no rebound, no hepatosplenomegaly, no masses. EXTREMITIES: 2+ pulses, warm, well-perfused, no edema. NEUROLOGICAL:Cn2-12 grossly intact.has trouble repeating the words, no facial asymmetry. Able to move all his extremities. Right side is weaker 4/5, left 5/5 SKIN: Warm, dry, normal turgor, no rashes or lesions noted CBCD WBC 5.4 K/mm3 (4.0-10.0) 01/01/17 06:00 RBC 4.23 M/mm3 (4.00-5.60) 01/01/17 06:00 Hgb 12.7 GM/dL (11.7-16.9) 01/01/17 06:00 Hct 38.0 % (35.4-49) 01/01/17 06:00 MCV 89.8 fl (80-96) 01/01/17 06:00 MCHC 33.4 g/dl (32.0-35.9) 01/01/17 06:00 RDW 13.1 % (11.9-15.9) 01/01/17 06:00 Plt Count 156 K/MM3 (134-434) 01/01/17 06:00 MPV 9.0 fl (7.5-11.1) 01/01/17 06:00 CMP Sodium 140 mmol/L (136-145) 01/02/17 06:25 Potassium 3.2 mmol/L (3.5-5.1) L 01/02/17 06:25 Chloride 103 mmol/L (98-107) 01/02/17 06:25 Carbon Dioxide 29 mmol/L (21-32) 01/02/17 06:25 Anion Gap 8 (8-16) 01/02/17 06:25 BUN 15 mg/dL (7-18) D 01/02/17 06:25 Creatinine 1.0 mg/dL (0.7-1.3) 01/02/17 06:25 Creat Clearance w eGFR > 60 (>60) 01/02/17 06:25 Random Glucose 90 mg/dL (74-106) 01/02/17 06:25 Calcium 9.0 mg/dL (8.5-10.1) 01/02/17 06:25 Total Bilirubin 1.5 mg/dL (0.2-1.0) H D 01/02/17 06:25 AST 23 U/L (15-37) D 01/02/17 06:25 ALT 21 U/L (12-78) 01/02/17 06:25 Alkaline Phosphatase 87 U/L (45-117) 01/02/17 06:25 Total Protein 7.5 g/dl (6.4-8.2) 01/02/17 06:25 Albumin 3.2 g/dl (3.4-5.0) L 01/02/17 06:25 CARDIAC ENZYMES Creatine Kinase 175 IU/L (39-308) D 12/31/16 13:45 Troponin I 0.04 ng/ml (0.00-0.05) D 12/31/16 13:45 Current Medications Generic Name Dose Route Start Last Admin Trade Name Mylesq PRN Reason Stop Dose Admin Aspirin 325 mg 01/01/17 10:00 01/02/17 09:35 Ecotrin - PO 325 mg DAILY [facility] Administration Atorvastatin Calcium 40 mg 01/01/17 22:00 01/01/17 21:43 Lipitor - PO 40 mg HS [facility] Administration Heparin Sodium (Porcine) 5,000 unit 12/31/16 22:00 01/02/17 14:03 Heparin - SQ 5,000 unit TID [facility] Administration Insulin Aspart 1 vial 01/01/17 09:27 01/02/17 18:06 Novolog Vial Sliding Scale - SQ 2 units ACHS [facility] Administration Protocol Lisinopril 5 mg 01/02/17 09:35 01/02/17 09:46 Prinivil PO 2.5 mg DAILY [facility] Administration Ondansetron HCl 4 mg 12/31/16 09:19 Zofran Injection IVPB Q6H PRN NAUSEA Home Medications Medication Instructions Recorded Dabigatran Etexilate Mesylate 150 mg PO BID 12/31/16 [Pradaxa -] Furosemide [Lasix -] 40 mg PO DAILY 12/31/16 Sacubitril/Valsartan [Entresto 24 1 tab PO BID 12/31/16 mg-26 mg Tablet] CT scan of the brain without intravenous contrast. No prior is available for comparison. There is moderate atrophy, ventricular dilatation and moderate to marked periventricular chronic microvascular ischemic changes. Asymmetric lucency in the right frontal high convexity that may be on the basis of chronic microvascular ischemic changes. A superimposed infarct, of indeterminate age , likely old cannot be ruled out. Otherwise, no mass lesion, gross acute infarct or intracranial hemorrhage is seen. There is no shift of midline structures. Subcentimeter retention cyst versus polyp in the left maxillary antrum, medially. Another smaller one is seen on the right side. Calcification of the cavernous carotid arteries are present. The mastoid air cells are well aerated and the calvarium is intact IMPRESSION: Moderate to marked chronic microvascular ischemic changes with asymmetric lucency in the right frontal high convexity, cannot rule out an infarct of indeterminate age, likely chronic. Correlate clinically and further evaluation with MRI is needed. A preliminary report was forwarded by the [facility], ASSESSMENT/PLAN: Patient is a 66 y/o AAF male with Hx of T2DM, HTN, CHF presented to the emergency room with acute cva ; was not given tpa as time of onset was unknown. Patient admits to falling but denies any head trauma or loc. As per daughter patient was significantly weak on the right side and had right facial droop and slurred speech. # Acute Ischemic CVA ; Left MCA stroke. Stroke protocol , rectal ASA, Simvastatin and Lisnopril 2.5 mg ;ECHO ordered ;MRI ordered ;Speech and swallow evaluated; Neurology consult ,PT consult ,Fall risk precautions, Aspiration precautions. Patient has a high Risks factor for CVA: T2DM, cad, atrial fibrillation was on pradaxa ; is on hold now since possibility of having large stroke. # T2DM on sliding scale with coverage #CHF (congestive heart failure): Cardiology consult for ICD placement # Hypertension on lisinopril DVT prophylaxis Heparin 5000 unit sq q8h He is on pradaxa and is on hold for possible large stroke Visit type - Emergency Visit Emergency Visit: Yes ED Registration Date: 12/31/16 Care time: The patient presented to the Emergency Department on the above date and was hospitalized for further evaluation of their emergent condition. - New Patient This patient is new to me today: No - Critical Care Critical Care patient: No
[2017-01-02] MEDS: ATORVASTATIN CA 40 MG TABLET (FP) PO SCH (21:16)
[2017-01-03] MEDS: HEPARIN NA (PORCINE) 5,000 UNITS/ML 1ML VIAL SQ SCH (05:51)
[2017-01-03] MEDS: INSULIN SLIDING SCALE (NOVOLOG) 1 VIAL SQ SCH ×4 (06:02→21:09)
[2017-01-03 08:18] LABS: BASOPHIL 0.5 % (0-2.0); EOSINOPHIL 0.8 % (0-4.5); MCH 30.3 pg (25.7-33.7); MCHC 33.2 g/dl (32.0-35.9); MEAN CELL VOLUME 91.4 fl (80-96); MEAN PLT VOLUME 9.4 fl (7.5-11.1); NEUTROPHILS 77.2 % (42.8-82.8); PLATELET COUNT 151 K/MM3 (134-434); RDW 13.4 % (11.9-15.9)
[2017-01-03 08:54] LABS: ALBUMIN 3.1 g/dl (3.4-5.0); ANION GAP 8 (8-16); CALCIUM 9.2 mg/dL (8.5-10.1); CO2 29 mmol/L (21-32); GLUCOSE,RANDOM 86 mg/dL (74-106)
[2017-01-03 09:00] LABS: ALK PHOS 86 U/L (45-117); BILIRUBIN,TOTAL 1.5 mg/dL (0.2-1.0); CREATININE 1.1 mg/dL (0.7-1.3); SGOT/AST 21 U/L (15-37); SGPT/ALT 20 U/L (12-78); TOT PROT 7.2 g/dl (6.4-8.2)
--- NOTE | 2017-01-03 09:01 | PN ---
Progress Note, Physician History of Present Illness: Expressive aphasia and right sided weakness improving. - Current Medication List Current Medications: Active Medications Aspirin (Ecotrin -) 325 mg PO DAILY [facility] Last Admin: 01/02/17 09:35 Dose: 325 mg Atorvastatin Calcium (Lipitor -) 40 mg PO HS [facility] Last Admin: 01/02/17 21:16 Dose: 40 mg Heparin Sodium (Porcine) (Heparin -) 5,000 unit SQ TID [facility] Last Admin: 01/03/17 05:51 Dose: 5,000 unit Insulin Aspart (Novolog Vial Sliding Scale -) 1 vial SQ ACHS [facility] PRN Reason: Protocol Last Admin: 01/03/17 06:02 Dose: Not Given Lisinopril (Prinivil) 5 mg PO DAILY [facility] Last Admin: 01/02/17 09:46 Dose: 2.5 mg Ondansetron HCl (Zofran Injection) 4 mg IVPB Q6H PRN PRN Reason: NAUSEA - Objective Vital Signs: Vital Signs Temperature 98 F 01/03/17 05:48 Pulse Rate 79 01/03/17 05:48 Respiratory Rate 18 01/03/17 05:48 Blood Pressure 127/67 01/03/17 05:48 O2 Sat by Pulse Oximetry (%) 98 01/02/17 21:00 Constitutional: Yes: No Distress, Calm Neck: Yes: Supple Cardiovascular: Yes: Pulse Irregular Respiratory: Yes: Regular, Diminished Gastrointestinal: Yes: Normal Bowel Sounds, Soft Edema: No Neurological: Yes: Aphasia, Weakness Labs: CBC, BMP 01/03/17 06:00 INR, PTT INR 1.55 (0.82-1.09) H 12/31/16 07:23 - ....Imaging EKG: Report Reviewed (Tele: Afib) Problem List - Problems (1) Atrial fibrillation Code(s): I48.91 - UNSPECIFIED ATRIAL FIBRILLATION Qualifiers: Atrial fibrillation type: permanent Qualified Code(s): I48.2 - Chronic atrial fibrillation (2) Cerebrovascular accident (CVA) Code(s): I63.9 - CEREBRAL INFARCTION, UNSPECIFIED Qualifiers: CVA mechanism: occlusion Laterality of affected vessel: right (3) Chronic congestive heart failure Code(s): I50.9 - HEART FAILURE, UNSPECIFIED Qualifiers: Congestive heart failure type: unspecified congestive heart failure type Qualified Code(s): I50.9 - Heart failure, unspecified (4) Hyperlipidemia Code(s): E78.5 - HYPERLIPIDEMIA, UNSPECIFIED Qualifiers: Hyperlipidemia type: pure hypercholesterolemia Qualified Code(s): E78.00 - Pure hypercholesterolemia, unspecified; E78.0 - Pure hypercholesterolemia (5) Hypertension Code(s): I10 - ESSENTIAL (PRIMARY) HYPERTENSION Qualifiers: Hypertension type: essential hypertension Qualified Code(s): I10 - Essential (primary) hypertension Assessment/Plan 1. Left nonhemorrhagic parietal lobe CVA improving 2. Permanent atrial fibrillation on Pradaxa 3. Hypertension 4. Hypercholesterolemia 5. Type 2 diabetes mellitus 6. Probable class 2 NYHA classification LV heart failure - patient has been on Entresto as outpatient 7. Carotid artery disease PLAN: 1. Currently on Prinivil 5 qd- consider restarting on Entresto if still clinically indicated (to be determined) 2. Resume Pradaxa 150 bid and d/c ASA 3. Continue Lipitor 40 qhs 4. Transthoracic echocardiography to assess LV and valvular function 5. Neurology follow-up appreciated, carotid US, PT, S&S eval 6. DVT prophylaxis Patient sees a coding clerks supervisor affiliated with [facility], but does not remember the name
--- NOTE | 2017-01-03 09:08 | PN ---
Progress Note (short form) - Note Progress Note: aphasia and right sided weakness when presented initially 66 year old male found to be on floor and brought to hospital for stroke, and he was found to have aphasia and right sdied hemiparesis. Since coming to hospital, his symptoms has improved and on suspician of large mca stroke anticoagulation was on hold and had mri done yesterday showed small stroke and his hemiparesis has improved He has history of STROKE, CHF, CAD and DM He lives iwth his tpa was not given as time of onset is not known. he is on pradaxa and was on hold as suspected to ahve large stroke Past Medical History as above Neurological Examination alert follow command and remains aphasic was able to tell his name and where he is he has trouble repeating no facae asymmetry, pupils are reactive moving all extremity , ct head reviewed unremarkable Assessment- left parietal lobe infarct , clinically has improved, , risk factor dm, cad, atrial fibrillation was on pradaxa Plan suggest to restart his pradaxa and clinically he has improved and stroke is not large. advise to stop aspirin , if he was not on aspirin before starting anticoagulation. - continue pt, speech and dvt prophylaxis thanks for consult Ildefonso Marquez MD
[2017-01-03] MEDS: ASPIRIN 325 MG ENTERIC COATED TABLET (FP) PO SCH (10:24)
[2017-01-03] MEDS: LISINOPRIL 5 MG TABLET (FP) PO SCH (10:26)
[2017-01-03] MEDS: DABIGATRAN ETEXILATE MESYLATE 150 MG CAPSULE PO SCH ×2 (11:25→21:13)
[2017-01-03] MEDS ORDERED: PT OWN MED DRAWER 7, Y5N ONE ×2 (11:27→21:11)
--- NOTE | 2017-01-03 15:17 | PN ---
Progress Note, FIREPERSON - Note Progress Note: "Found by his daughter on the floor by his bed at home. Presented to the ER for slurred and garbled speech. Found to have aphasia, right sided weakness, right sided facial droop and V-Tach. A CT scan of the head shows moderate atrophy, ventricular dilatation and moderate to marked periventricular chronic microvascular changes, superimposed infarct of intermediate age (no TPA administration was indicated). Admitted with CVA" PMHX: CVA, TIA, CHF, CAD, Stent placement, HTN, Type II DM Selected Entries 01/02/17 01/02/17 01/02/17 01:53 05:46 09:00 Breakfast Lunch Supper Temperature 97.8 F 97.6 F 97.8 F 01/02/17 01/02/17 01/02/17 14:32 17:21 21:00 Breakfast 25% Lunch 100% Supper Temperature 98.3 F 98.1 F 98.9 F 01/02/17 01/03/17 01/03/17 22:40 01:38 05:48 Breakfast Lunch Supper 100% Temperature 97.7 F 98 F 01/03/17 10:30 Breakfast 100% Lunch Supper Temperature Evaluated by sp path on 12/31 with moderate Aphasia noted. Tolerating soft diet/thin liquids. Improving functional communication with improved naming and verbal formulation Medically accepted to [facility].
--- NOTE | 2017-01-03 16:43 | PN ---
Physical Exam: SUBJECTIVE: Patient seen and examined at bedside. No overnight events. No new complaints. He states he feels better today. Denies CP,LEGGETT, SOB, palpitations, Abd. pain, N/V. OBJECTIVE: Vital Signs Period Temp Pulse Resp BP Sys/Giraldo Pulse Ox Last 24 Hr 97.7 F-98.9 F 63-80 18-20 117-141/56-85 97-98 GENERAL: AAOx2 , NAD HEAD: NC/AT EYES: PERRL, EOMI, sclera anicteric, conjunctiva clear. No ptosis. ENT: moist mucous membranes. NECK: Supple, No JVD LUNGS: CTAB, no wheezing or rales. HEART: RRR, S1, S2 without murmur, rub or gallop. ABDOMEN: soft, nt, nd, norm BS EXTREMITIES: 2+ pulses, warm, well-perfused, no edema. NEUROLOGICAL: no facial asymmetry, 5/5 strength upper and lower ext. CN II-XII grossly intact. 2+ knee jerk and bicep reflex. Gait instability, abnormal rapid repetitive movement. PSYCH: Normal mood, normal affect. SKIN: Warm, dry, normal turgor, no rashes or lesions noted Laboratory Results - last 24 hr 01/02/17 01/02/17 01/03/17 16:20 21:14 05:36 WBC RBC Hgb Hct MCV MCHC RDW Plt Count MPV Neutrophils % Lymphocytes % Monocytes % Eosinophils % Basophils % Sodium Potassium Chloride Carbon Dioxide Anion Gap BUN Creatinine Creat Clearance w eGFR POC Glucometer 198 112 102 Random Glucose Calcium Total Bilirubin AST ALT Alkaline Phosphatase Total Protein Albumin 01/03/17 01/03/17 01/03/17 06:00 06:00 11:11 WBC 8.0 D RBC 4.32 Hgb 13.1 Hct 39.5 MCV 91.4 MCHC 33.2 RDW 13.4 Plt Count 151 MPV 9.4 Neutrophils % 77.2 Lymphocytes % 12.7 D Monocytes % 8.8 Eosinophils % 0.8 Basophils % 0.5 Sodium 141 Potassium 3.8 Chloride 104 Carbon Dioxide 29 Anion Gap 8 BUN 17 Creatinine 1.1 Creat Clearance w eGFR > 60 POC Glucometer 203 Random Glucose 86 Calcium 9.2 Total Bilirubin 1.5 H AST 21 ALT 20 Alkaline Phosphatase 86 Total Protein 7.2 Albumin 3.1 L Active Medications Generic Name Dose Route Start Last Admin Trade Name Freq PRN Reason Stop Dose Admin Atorvastatin Calcium 40 mg 01/01/17 22:00 01/02/17 21:16 Lipitor - PO 40 mg HS [facility] Administration Dabigatran 150 mg 01/03/17 11:00 01/03/17 11:25 Pradaxa - PO 150 mg BID [facility] Administration Insulin Aspart 1 vial 01/01/17 09:27 01/03/17 12:27 Novolog Vial Sliding Scale - SQ 4 units ACHS [facility] Administration Protocol Lisinopril 5 mg 01/02/17 09:35 01/03/17 10:26 Prinivil PO 5 mg DAILY [facility] Administration Ondansetron HCl 4 mg 12/31/16 09:19 Zofran Injection IVPB Q6H PRN NAUSEA ASSESSMENT/PLAN: 66 yo M with PMhx of DM, CHF, HTN , afib, CAD admitted for acute CVA. Problem List - Problems (1) Cerebrovascular accident (CVA) Assessment/Plan: * left parietal lobe infarct , clinically has improved * seen by Neuro recommends restarting pradaxa and stop asa. * Will continue Lipitor 40mg PO HS * Will f/u with housekeeper manager for rehab placement. (2) Atrial fibrillation Assessment/Plan: * restart AC with Pradaxa 150mg PO BID (3) CAD (coronary artery disease) Assessment/Plan: * ASA held * continue Lipitor 40mg PO HS (4) DM2 (diabetes mellitus, type 2) Assessment/Plan: * ADA diet * BGM ACHS * ISS ACHS Qualifiers: Diabetes mellitus complication status: without complication Diabetes mellitus longterm insulin use: without intermission coordinator use Qualified Code(s): E11.9 - Type 2 diabetes mellitus without complications (5) CHF (congestive heart failure) Assessment/Plan: * continue Lipitor 40mg PO HS and Lisinopril 5mg PO daily * Will consider restarting Entresto * ECHO pending. Code(s): I50.9 - HEART FAILURE, UNSPECIFIED Qualifiers: Congestive heart failure type: systolic Congestive heart failure chronicity: chronic Qualified Code(s): I50.22 - Chronic systolic ( congestive) heart failure (6) Hyperlipidemia Assessment/Plan: * Lipitor 40mg PO HS (7) Hypertension Assessment/Plan: * Lisinopril 5mg PO daily (8) DVT prophylaxis Assessment/Plan: * Pradaxa 150mg PO BID Visit type - Emergency Visit Emergency Visit: Yes ED Registration Date: 12/31/16 Care time: The patient presented to the Emergency Department on the above date and was hospitalized for further evaluation of their emergent condition. - New Patient This patient is new to me today: Yes Date on this admission: 01/03/17 - Critical Care Critical Care patient: No - Discharge Referral Referred to [facility] No
[2017-01-03] MEDS: ATORVASTATIN CA 40 MG TABLET (FP) PO SCH (21:13)
--- NOTE | 2017-01-03 21:17 | PN ---
Teaching Attending Note Name of Resident: Sebas Baldwin ATTENDING PHYSICIAN STATEMENT I saw and evaluated the patient. I reviewed the resident's note and discussed the case with the resident. I agree with the resident's findings and plan as documented. SUBJECTIVE: Patient is doing better today. able to communicate without any difficulty. sitting on the chair. OBJECTIVE: Vital Signs Temperature 98.2 F 01/03/17 20:45 Pulse Rate 70 01/03/17 20:45 Respiratory Rate 18 01/03/17 20:45 Blood Pressure 131/80 01/03/17 20:45 O2 Sat by Pulse Oximetry (%) 96 01/03/17 20:42 CBCD WBC 8.0 K/mm3 (4.0-10.0) D 01/03/17 06:00 RBC 4.32 M/mm3 (4.00-5.60) 01/03/17 06:00 Hgb 13.1 GM/dL (11.7-16.9) 01/03/17 06:00 Hct 39.5 % (35.4-49) 01/03/17 06:00 MCV 91.4 fl (80-96) 01/03/17 06:00 MCHC 33.2 g/dl (32.0-35.9) 01/03/17 06:00 RDW 13.4 % (11.9-15.9) 01/03/17 06:00 Plt Count 151 K/MM3 (134-434) 01/03/17 06:00 MPV 9.4 fl (7.5-11.1) 01/03/17 06:00 CMP Sodium 141 mmol/L (136-145) 01/03/17 06:00 Potassium 3.8 mmol/L (3.5-5.1) 01/03/17 06:00 Chloride 104 mmol/L (98-107) 01/03/17 06:00 Carbon Dioxide 29 mmol/L (21-32) 01/03/17 06:00 Anion Gap 8 (8-16) 01/03/17 06:00 BUN 17 mg/dL (7-18) 01/03/17 06:00 Creatinine 1.1 mg/dL (0.7-1.3) 01/03/17 06:00 Creat Clearance w eGFR > 60 (>60) 01/03/17 06:00 Random Glucose 86 mg/dL (74-106) 01/03/17 06:00 Calcium 9.2 mg/dL (8.5-10.1) 01/03/17 06:00 Total Bilirubin 1.5 mg/dL (0.2-1.0) H 01/03/17 06:00 AST 21 U/L (15-37) 01/03/17 06:00 ALT 20 U/L (12-78) 01/03/17 06:00 Alkaline Phosphatase 86 U/L (45-117) 01/03/17 06:00 Total Protein 7.2 g/dl (6.4-8.2) 01/03/17 06:00 Albumin 3.1 g/dl (3.4-5.0) L 01/03/17 06:00 CARDIAC ENZYMES Creatine Kinase 175 IU/L (39-308) D 12/31/16 13:45 Troponin I 0.04 ng/ml (0.00-0.05) D 12/31/16 13:45 Current Medications Generic Name Dose Route Start Last Admin Trade Name Freq PRN Reason Stop Dose Admin Atorvastatin Calcium 40 mg 01/01/17 22:00 01/03/17 21:13 Lipitor - PO 40 mg HS HERBERT Administration Dabigatran 150 mg 01/03/17 11:00 01/03/17 21:13 Pradaxa - PO 150 mg BID HERBERT Administration Insulin Aspart 1 vial 01/01/17 09:27 01/03/17 21:09 Novolog Vial Sliding Scale - SQ Not Given ACHS HERBERT Protocol Lisinopril 5 mg 01/02/17 09:35 01/03/17 10:26 Prinivil PO 5 mg DAILY HERBERT Administration Ondansetron HCl 4 mg 12/31/16 09:19 Zofran Injection IVPB Q6H PRN NAUSEA Home Medications Medication Instructions Recorded Dabigatran Etexilate Mesylate 150 mg PO BID 12/31/16 [Pradaxa -] Furosemide [Lasix -] 40 mg PO DAILY 12/31/16 Sacubitril/Valsartan [Entresto 24 1 tab PO BID 12/31/16 mg-26 mg Tablet] PE: per resident's note ASSESSMENT AND PLAN: Patient is a 66 y/o AAF male with Hx of T2DM, HTN, CHF presented to the emergency room with acute cva ; was not given tpa as time of onset was unknown. Patient admits to falling but denies any head trauma or loc. As per daughter patient was significantly weak on the right side and and had right facial droop and slurred speech. # Acute Left nonhemorrhagic parietal lobe CVA improving . Stroke protocol being followed. rectal ASA, Lipitor 40mg and Lisnopril 5 mg now. Neuro consult appreciated . Patient is placed back to [facility]. being arranged to rehab. [place] for physical therapy. #atrial fibrillation on Pradaxa continue # T2DM on sliding scale with coverage #CHF diastolic HR is on lisinopril increased the dose, was Entresto, will check with cardiology when to restart the med. Patient sees a technical services specialist affiliated with [facility], but does not remember the name # Hypertension on lisinopril # Carotid artery disease continue Lipitor DVT prophylaxis Pradaxa
[2017-01-04] MEDS: INSULIN SLIDING SCALE (NOVOLOG) 1 VIAL SQ SCH ×2 (06:02→11:50)
[2017-01-04 07:35] LABS: MCH 30.6 pg (25.7-33.7); MCHC 33.4 g/dl (32.0-35.9); MEAN CELL VOLUME 91.5 fl (80-96); MEAN PLT VOLUME 9.3 fl (7.5-11.1); PLATELET COUNT 143 K/MM3 (134-434); RDW 13.2 % (11.9-15.9); WHITE BLOOD COUNT 6.2 K/mm3 (4.0-10.0)
[2017-01-04 07:45] LABS: ANION GAP 8 (8-16); CALCIUM 8.7 mg/dL (8.5-10.1); CO2 29 mmol/L (21-32); CREATININE 0.9 mg/dL (0.7-1.3); GLUCOSE,RANDOM 90 mg/dL (74-106)
--- NOTE | 2017-01-04 07:50 | PN ---
Progress Note (short form) - Note Progress Note: Chief Complaint: Events noted, Notes reviewed, Expressive aphasia and right sided weakness improving History of Present Illness: Seen and examined on telemetry. Events noted, Notes reviewed, Expressive aphasia and right sided weakness improving Echocardiography performed yesterday revealed left ventricular cavity dilatation with severe diffuse global hypokinesia and severe reduction left ventricular ejection fraction, moderate mitral valve regurgitation, mild tricuspid valve regurgitation - Current Medication List Current Medications Atorvastatin Calcium (Lipitor -) 40 mg PO HS [facility] Last Admin: 01/03/17 21:13 Dose: 40 mg Dabigatran (Pradaxa -) 150 mg PO BID [facility] Last Admin: 01/04/17 09:13 Dose: 150 mg Insulin Aspart (Novolog Vial Sliding Scale -) 1 vial SQ ACHS [facility] PRN Reason: Protocol Last Admin: 01/04/17 06:02 Dose: Not Given Lisinopril (Prinivil) 5 mg PO DAILY [facility] Last Admin: 01/04/17 09:13 Dose: 5 mg Ondansetron HCl (Zofran Injection) 4 mg IVPB Q6H PRN PRN Reason: NAUSEA Review of Systems Cardiovascular: As noted above Respiratory: denies: Cough or Sputum Production Gastrointestinal: denies: Nausea, Vomiting, Diarrhea, Constipation or Abdominal Discomfort Musculoskeletal: No Symptoms Reported Endocrine: No Symptoms Reported - Objective Vital Signs: Last Vital Signs Temp Pulse Resp BP Pulse Ox 98.2 F 71 18 141/78 96 01/04/17 06:08 01/04/17 06:08 01/04/17 06:08 01/04/17 06:08 01/03/17 20:42 Constitutional: No Distress, Calm Neck: Supple negative JVD no bruit Cardiovascular: S1 and S2 irregularly irregular Respiratory: Diminished breath sounds at the bases Gastrointestinal: soft benign Normal Bowel Sounds Ext: No edema Labs: CBC, BMP 01/04/17 06:30 01/04/17 06:30 INR, PTT INR 1.55 (0.82-1.09) H 12/31/16 07:23 Assessment/Plan ASSESSMENT: 1. Left non-hemorrhagic parietal lobe cerebrovascular event improving 2. Systolic left ventricular dysfunction with class I-II [employer] classification left ventricular failure, compensated 3. Permanent atrial fibrillation on Pradaxa therapy 4. Hypertension 5. Pum-[id number]-[id number] diabetes mellitus. 6. Hypercholesterolemia 7. Carotid artery disease PLAN: 1. Recommend initiation of Coreg therapy. 2. Recommend resumption of Entresto therapy and discontinuation of Lisinopril therapy 3. Continue Pradaxa 4. Continue Lipitor Triston Whitman M.D.
[2017-01-04] MEDS ORDERED: PT OWN MED DRAWER 7, Y5N ONE (09:06)
[2017-01-04] MEDS: LISINOPRIL 5 MG TABLET (FP) PO SCH (09:13)
[2017-01-04] MEDS: DABIGATRAN ETEXILATE MESYLATE 150 MG CAPSULE PO SCH (09:13)
[2017-01-04 10:51] VITALS: BP 110/57; PULSE 64; TEMP 98
[2017-01-04] MEDS ORDERED: CARVEDILOL 6.25 MG TABLET (FP) PO SCH (11:15)
--- NOTE | 2017-01-04 11:24 | DS ---
Physical Exam: SUBJECTIVE:Patient seen and examined at bedside. No overnight events. No new complaints. He states he feels better today. Denies CP,LEGGETT, SOB, palpitations, Abd. pain, N/V. OBJECTIVE: Vital Signs Period Temp Pulse Resp BP Sys/Giraldo Pulse Ox Last 24 Hr 97.7 F-98.6 F 64-76 18-18 99-141/57-80 96-99 PHYSICAL EXAM GENERAL: AAOx2 , NAD HEAD: NC/AT EYES: PERRL, EOMI, sclera anicteric, conjunctiva clear. No ptosis. ENT: moist mucous membranes. NECK: Supple, No JVD LUNGS: CTAB, no wheezing or rales. HEART: RRR, S1, S2 without murmur, rub or gallop. ABDOMEN: soft, nt, nd, norm BS EXTREMITIES: 2+ pulses, warm, well-perfused, no edema. NEUROLOGICAL: no facial asymmetry, 5/5 strength upper and lower ext. CN II-XII grossly intact. 2+ knee jerk and bicep reflex. Gait instability, abnormal rapid repetitive movement. PSYCH: Normal mood, normal affect. SKIN: Warm, dry, normal turgor, no rashes or lesions noted LABS Laboratory Results - last 24 hr 01/03/17 01/03/17 01/03/17 11:11 17:17 20:59 WBC RBC Hgb Hct MCV MCHC RDW Plt Count MPV Sodium Potassium Chloride Carbon Dioxide Anion Gap BUN Creatinine POC Glucometer 203 100 134 Random Glucose Calcium 01/04/17 01/04/17 01/04/17 05:04 06:30 06:30 WBC 6.2 RBC 4.18 Hgb 12.8 Hct 38.2 MCV 91.5 MCHC 33.4 RDW 13.2 Plt Count 143 MPV 9.3 Sodium 142 Potassium 3.8 Chloride 105 Carbon Dioxide 29 Anion Gap 8 BUN 20 H Creatinine 0.9 POC Glucometer 84 Random Glucose 90 Calcium 8.7 IMAGING: * [id number] MRI/BRAIN MRI WITH CONTRAST MRI of the brain pre and post administration of 20 cc of Omniscan IV. Clinical history: CVA. Sagittal, coronal and axial T1, T2 FLAIR and diffusion images were obtained followed with fat-sat coronal, sagittal and axial T1-weighted post administered of 20 cc of Omniscan IV. The midline structures unremarkable. No evidence of Chiari malformation On the T2-weighted the on images also on the FLAIR images there are extensive ischemic changes in the white matter of both cerebral hemispheres surrounding the lateral ventricles and in centrum semiovale sequela most probably to long-standing hypertension or small vessel atherosclerosis. On the diffusion pulse sequence there is small acute infarct in the white matter left parietal lobe evident on image #29 and 30 with no evidence of hemorrhagic component. The gradient echo pulse sequence unremarkable with no evidence of intracerebral hemorrhage, subdural fluid collection. There is moderate dilatation of the ventricles. Cerebellopontine angles unremarkable with no evidence of intra or extra canalicular neoplasm. On this lesion of Omniscan IV there is no evidence of enhancing intra-axial or extra-axial neoplasm. The suprasellar structures fracture and cerebellopontine angles unremarkable. Impression: Acute nonhemorrhagic infarct left parietal lobe measuring approximately 6 mm in diameter . Extensive ischemic changes in the yumiko and in the white matter of both cerebral hemispheres sequela most probably to long- standing hypertension or small vessel arteriosclerosis with moderate dilatation of lateral ventricles No evidence of enhancing intra-axial or extra-axial neoplasm. No suspicious meningeal enhancement. Reported By: Hans Mesa MD 1322 * [id number] US/CAROTID COLOR FLOW DOPP US History of stroke Bilateral carotid Doppler ultrasound Grayscale, pulsed Doppler and color Doppler interrogation of both carotid and both vertebral arteries was performed. The right common carotid , internal and external external carotid artery were identified with a peak systolic velocity of 55, 75 and 94 cm/sec, respectively. The left common carotid , internal and external carotid artery were identified with a peak systolic velocity of 68, 52 and 80 cm/sec, respectively. Flow in the physiologic direction was documented in both vertebral arteries. Impression: Moderate intimal thickening in the right common carotid artery and at the bifurcation with small-to -moderate sized soft plaque at the level of the bulb without evidence of hemodynamically significant stenosis. There is also moderate intimal thickening in the internal and external carotid artery. Moderate intimal thickening in the left common carotid artery and bifurcation with moderate size calcified plaques at the level of the bulb without evidence of hemodynamically significant stenosis. There is also intimal thickening in the proximal internal and external carotid artery Correlation with CT angiogram of the neck would be helpful for further evaluation. Reported By: Gisell Stokes MD 1203 * [id number] CT/CHEST CT WITHOUT CONTRAST CT chest without contrast Comparison studies: Abnormal chest x-ray July 31, 2016 CLINICAL HISTORY: Abnormal chest x-ray with possible left pleural mass Axial imaging completed with coronal and sagittal reformations, intravenous contrast not administered Trachea midline with normal thyroid lobes. No endobronchial lesion with no evidence of aortic aneurysm. Coronary atherosclerotic calcifications with no pericardial effusion. There is a moderate right pleural effusion with compressive atelectasis in the right lower lobe identified. There is a loculated pleural-based density in the upper lobe conforming to the pleural space with no associated extrapleural rib destruction or masslike extension into the intercostal spaces. The finding has the appearance of a pleural-based mass versus a pleural-based collection such as a hematoma. On the noncontrast images the Hounsfield density measures between 20 and 40 with no obvious layering effect seen, findings nonspecific, CT -guided needle aspiration suggested for tissue sampling/fluid aspiration for Gram stain and cytology Finding is large measuring 9.5 x 4.4 cm No mediastinal masses are seen. No bulky axillary or mediastinal adenopathy is seen and no definite hilar adenopathy is seen Within the lungs no suspicious findings are seen in the right lung or compressed left lung. Review of the bone windows demonstrates no rib fracture or old rib fracture with no erosion. If there was old trauma this might account for a pleural collection but no obvious stigmata of trauma are seen. Solitary metastasis of this size is unusual, a pleural- based mass of disc density without any change on the bone oriented costal space is atypical, findings are most suggestive of a loculated collection in the pleural space and consultation with interventional radiology is recommended for aspiration. IMPRESSION: Large left-sided pleural-based mass/collection measuring up to 9.5 x 4.4 cm with no obvious rib erosion or destruction and no obvious extrapleural invasion or extension into the intercostal space, compression on the adjacent lung consistent with smooth margins and no invasive features, clinical correlation. Reported By: Dario Arnold MD 08/03/16 0719 * EXAM#: TYPE/EXAM: RESULT: [id number] CT/CT GUIDANCE NEEDLE BIOPSY CT GUIDED CORE BIOPSY OF LEFT PLEURAL MASS HISTORY: 66-year-old male with large elliptical pleural-based left lung mass PROCEDURE: The risks, benefits and alternatives to the procedure were discussed with the patient. The risks of infection, bleeding, hemoptysis, lung collapse-pneumothorax, and the need for chest tube placement and other procedures in addition to the remote possibility of were relayed to the patient. Signed consent was obtained after answering the patient's questions. Patient identity and procedure were confirmed. The patient was placed in the supine position. Preprocedure CT scan was performed an appropriate entry window was identified and marked with skin marker. Sterile technique including hand hygiene, cap, mask, sterile gown and sterile gloves used. The skin overlying the entry site was prepped and draped in a sterile fashion with 2% chlorhexidine and large sterile sheet. Under CT guidance, the left lung pleural-based mass was accessed using a 19-gauge coaxial Temno needle through bloody fluid was aspirated The obtained samples were placed in alcohol for cytology. MEDICATIONS: Procedure performed under the supervision of radiology nurse with continuous monitoring of the cardiopulmonary status which remained stable throughout the exam. 1% lidocaine was used for local anesthetic. FINDINGS: Preprocedure CT scan showed large predominantly heterogeneous and dense elliptical smooth pleural- based mass measuring at least 13.1 x 5.[address] demonstrated no evidence of bleeding or pneumothorax RADIATION DOSE/DLP: 375.4 mGy*cm CONTRAST: None CONCLUSION: Successful CT-guided biopsy/aspiration of left lung large pleural- based mass with no solid soft tissue return except for bloody material suggestive of hematoma. Conglomerate CT and biopsy findings suggest large pleural adenoma/blood clot rather than a mass. An occult underlying neoplasm cannot be excluded. Continued follow-up is recommended DISPOSITION: The patient tolerated the procedure well. The patient was discharged home in stable condition. The patient was advised to return to the emergency room in the event of worsening chest pain, shortness of breath or hemoptysis. Thank you for this referral Reported By: Pankaj Parra MD 09/15/16 7972 HOSPITAL COURSE: 66 yo M with PMhx of DM, CHF, HTN , afib, CAD admitted for acute CVA. Found to have left parietal lobe infarct noted on MRI. He was found to have aphasia and right sdied hemiparesis. Evaluated Neuro recommended restarting pradaxa and stopped asa. Continued on statin therapy. Clinically improved with minimal residual weakness.Follow up in one week with neurology. He was also found to have a left lung plueral-based mass that was biopsied . Biopsy findings suggest large pleural adenoma/blood clot rather than a mass. He will need to follow up as outpatient with pulmonolgist. For his CHF cardiology was consulted and echo showed left ventricular cavity dilatation with severe diffuse global hypokinesia and severe reduction left ventricular ejection fraction, moderate mitral valve regurgitation, mild tricuspid valve regurgitation. Recommended to restart Entresto.Follow up with cardiology in one week. Diabetes was managed with sliding scale and diabetic diet with BGM ACHS. All other home meds were restarted except for ASA. He discharged to [place] [facility] facility in stable condition. Date of Admission:12/31/16 Date of Discharge: 01/04/17 Minutes to complete discharge: 45 Discharge Summary Reason For Visit: CVA Current Active Problems Cerebrovascular accident (CVA) (Acute) DVT prophylaxis (Acute) Atrial fibrillation (Chronic) CAD (coronary artery disease) (Chronic) DM2 (diabetes mellitus, type 2) (Chronic) History of percutaneous coronary intervention (Chronic) Condition: Improved - Instructions Diet, Activity, Other Instructions: -You are being discharged to a rehab facility. -Follow up with your neurologist in one week. -You have been started on new medication Lipitor which you need to take once every night. -Resume your Pradaxa, Entresto,and lasix as directed. -ADA diet -increase activity as tolerated. Referrals: Timmy Beavers [Primary Care Provider] - Disposition: SNF FACILITY - Home Medications Comprehensive Discharge Medication List: Ambulatory Orders Dabigatran Etexilate Mesylate [Pradaxa -] 150 mg PO BID 12/31/16 Furosemide [Lasix -] 40 mg PO DAILY 12/31/16 Atorvastatin Ca [Lipitor] 40 mg PO HS #30 tablet 01/04/17 Carvedilol [Coreg -] 6.25 mg PO BID #60 tablet 01/04/17 Sacubitril/Valsartan [Entresto 24 mg-26 mg Tablet] 1 tab PO BID #60 tab Problem List - Problems (1) Cerebrovascular accident (CVA) (2) Atrial fibrillation (3) CAD (coronary artery disease) (4) DM2 (diabetes mellitus, type 2) Qualifiers: Diabetes mellitus complication status: without complication Diabetes mellitus prison insulin use: without prison use Qualified Code(s): E11.9 - Type 2 diabetes mellitus without complications (5) CHF (congestive heart failure) Code(s): I50.9 - HEART FAILURE, UNSPECIFIED Qualifiers: Congestive heart failure type: systolic Congestive heart failure chronicity: chronic Qualified Code(s): I50.22 - Chronic systolic ( congestive) heart failure (6) Hyperlipidemia (7) Hypertension (8) DVT prophylaxis This patient is new to me today: No Emergency Visit: Yes ED Registration Date: 12/31/16 Care time: The patient presented to the Emergency Department on the above date and was hospitalized for further evaluation of their emergent condition. Critical Care patient: No - Discharge Referral Referred to [facility] No
--- NOTE | 2017-01-04 16:18 | PN ---
Teaching Attending Note Name of Resident: Sebas Baldwin ATTENDING PHYSICIAN STATEMENT I saw and evaluated the patient. I reviewed the resident's note and discussed the case with the resident. I agree with the resident's findings and plan as documented. SUBJECTIVE: Comfortable going to [facility] today. OBJECTIVE: Vital Signs Temperature 98.0 F 01/04/17 10:00 Pulse Rate 64 01/04/17 10:00 Respiratory Rate 18 01/04/17 10:00 Blood Pressure 110/57 01/04/17 10:00 O2 Sat by Pulse Oximetry (%) 99 01/04/17 09:00 CBCD WBC 6.2 K/mm3 (4.0-10.0) 01/04/17 06:30 RBC 4.18 M/mm3 (4.00-5.60) 01/04/17 06:30 Hgb 12.8 GM/dL (11.7-16.9) 01/04/17 06:30 Hct 38.2 % (35.4-49) 01/04/17 06:30 MCV 91.5 fl (80-96) 01/04/17 06:30 MCHC 33.4 g/dl (32.0-35.9) 01/04/17 06:30 RDW 13.2 % (11.9-15.9) 01/04/17 06:30 Plt Count 143 K/MM3 (134-434) 01/04/17 06:30 MPV 9.3 fl (7.5-11.1) 01/04/17 06:30 CMP Sodium 142 mmol/L (136-145) 01/04/17 06:30 Potassium 3.8 mmol/L (3.5-5.1) 01/04/17 06:30 Chloride 105 mmol/L (98-107) 01/04/17 06:30 Carbon Dioxide 29 mmol/L (21-32) 01/04/17 06:30 Anion Gap 8 (8-16) 01/04/17 06:30 BUN 20 mg/dL (7-18) H 01/04/17 06:30 Creatinine 0.9 mg/dL (0.7-1.3) 01/04/17 06:30 Creat Clearance w eGFR > 60 (>60) 01/03/17 06:00 Random Glucose 90 mg/dL (74-106) 01/04/17 06:30 Calcium 8.7 mg/dL (8.5-10.1) 01/04/17 06:30 Total Bilirubin 1.5 mg/dL (0.2-1.0) H 01/03/17 06:00 AST 21 U/L (15-37) 01/03/17 06:00 ALT 20 U/L (12-78) 01/03/17 06:00 Alkaline Phosphatase 86 U/L (45-117) 01/03/17 06:00 Total Protein 7.2 g/dl (6.4-8.2) 01/03/17 06:00 Albumin 3.1 g/dl (3.4-5.0) L 01/03/17 06:00 CARDIAC ENZYMES Creatine Kinase 175 IU/L (39-308) D 12/31/16 13:45 Troponin I 0.04 ng/ml (0.00-0.05) D 12/31/16 13:45 Home Medications Medication Instructions Recorded Dabigatran Etexilate Mesylate 150 mg PO BID 12/31/16 [Pradaxa -] Furosemide [Lasix -] 40 mg PO DAILY 12/31/16 Atorvastatin Ca [Lipitor] 40 mg PO HS #30 tablet 01/04/17 Carvedilol [Coreg -] 6.25 mg PO BID #60 tablet 01/04/17 Sacubitril/Valsartan [Entresto 24 1 tab PO BID #60 tab 01/07/17 mg-26 mg Tablet] PE; per resident's note IMAGING: * [id number] MRI/BRAIN MRI WITH CONTRAST MRI of the brain pre and post administration of 20 cc of Omniscan IV. Clinical history: CVA. Sagittal, coronal and axial T1, T2 FLAIR and diffusion images were obtained followed with fat-sat coronal, sagittal and axial T1-weighted post administered of 20 cc of Omniscan IV. The midline structures unremarkable. No evidence of Chiari malformation On the T2-weighted the on images also on the FLAIR images there are extensive ischemic changes in the white matter of both cerebral hemispheres surrounding the lateral ventricles and in centrum semiovale sequela most probably to long-standing hypertension or small vessel atherosclerosis. On the diffusion pulse sequence there is small acute infarct in the white matter left parietal lobe evident on image #29 and 30 with no evidence of hemorrhagic component. The gradient echo pulse sequence unremarkable with no evidence of intracerebral hemorrhage, subdural fluid collection. There is moderate dilatation of the ventricles. Cerebellopontine angles unremarkable with no evidence of intra or extra canalicular neoplasm. On this lesion of Omniscan IV there is no evidence of enhancing intra-axial or extra-axial neoplasm. The suprasellar structures fracture and cerebellopontine angles unremarkable. Impression: Acute nonhemorrhagic infarct left parietal lobe measuring approximately 6 mm in diameter . Extensive ischemic changes in the yumiko and in the white matter of both cerebral hemispheres sequela most probably to long- standing hypertension or small vessel arteriosclerosis with moderate dilatation of lateral ventricles No evidence of enhancing intra-axial or extra-axial neoplasm. No suspicious meningeal enhancement. Reported By: Hans Mesa MD [id number] * [id number] US/CAROTID COLOR FLOW DOPP US History of stroke Bilateral carotid Doppler ultrasound Grayscale, pulsed Doppler and color Doppler interrogation of both carotid and both vertebral arteries was performed. The right common carotid , internal and external external carotid artery were identified with a peak systolic velocity of 55, 75 and 94 cm/sec, respectively. The left common carotid , internal and external carotid artery were identified with a peak systolic velocity of 68, 52 and 80 cm/sec, respectively. Flow in the physiologic direction was documented in both vertebral arteries. Impression: Moderate intimal thickening in the right common carotid artery and at the bifurcation with small-to -moderate sized soft plaque at the level of the bulb without evidence of hemodynamically significant stenosis. There is also calcified plamoderate intimal thickening in the internal and external carotid artery. Moderate intimal thickening in the left common carotid artery and bifurcation with moderate size ques at the level of the bulb without evidence of hemodynamically significant stenosis. There is also intimal thickening in the proximal internal and external carotid artery Correlation with CT angiogram of the neck would be helpful for further evaluation. Reported By: Gisell Stokes MD [id number] ASSESSMENT AND PLAN: Patient is a 66 y/o AAF male with Hx of T2DM, HTN, CHF presented to the emergency room with acute cva ; was not given tpa as time of onset was unknown. Patient admits to falling but denies any head trauma or loc. As per daughter patient was significantly weak on the right side and and had right facial droop and slurred speech. # Acute Left nonhemorrhagic parietal lobe CVA improving . continue pradaxa, and lipitor. discussed with neurologist . Patient is being discharged to rehab on Pradaxa continue going to [place] for physical therapy. #CHF diastolic HR , discontinued lisinopril and restarted Ernestro SD PER cardiology request. continue lasix And added coreg as per clinical dietitian Patient sees a clinical dietitian affiliated with [facility], but does not remember the name #atrial fibrillation on Pradaxa continue # T2DM on sliding scale with coverage # Hypertension , coreg and Ernestro and lasix # Carotid artery disease continue Lipitor/ pradaxa DVT prophylaxis Pradaxa discharge time 50 minutes
== END 2017-01-04 13:23 | DRG 65 ==
LOC: JER 06:59 → JERBED 09:15 → J4S 12:04
PROVIDERS: ADMIT Internal Medicine; ATTEND Internal Medicine
DX: I63.9 Cerebral infarction, unspecified (principal); I50.22 Chronic systolic (congestive) heart failure; I69.351 Hemiplegia and hemiparesis following cerebral infarction affecting right dominant side; R29.718 NIHSS score 18; I11.0 Hypertensive heart disease with heart failure; I25.10 Atherosclerotic heart disease of native coronary artery without angina pectoris; E11.9 Type 2 diabetes mellitus without complications; E78.5 Hyperlipidemia, unspecified; I69.320 Aphasia following cerebral infarction; I48.2 Chronic atrial fibrillation
CPT/HCPCS: 36415; 70450-TC; 70552-TC; 71010-TC; 80048; 80053; 80061; 82465; 82550; 82553; 83036; 83718; 83721; 83735; 84100; 84443; 84478; 84484; 85025; 85027; 85610; 86850; 86900; 86901; 93005; 93010; 93306-TC; 93880-TC; 97116-GP; 97161-GP; 99284-25; J1644

== ENCOUNTER 2017-04-11 23:15 | Observation (INO) | payer OTHER ==
--- NOTE | 2017-04-12 01:15 | PDOC ---
History of Present Illness - General History Source: Patient Exam Limitations: No Limitations - History of Present Illness Initial Comments: 04/12/17 01:19 The patient is a 66 year old male with a significant past medical history of CHF , afib (on pradaxa), DM, CKD, HT, and CVA (has mild left-sided weakness), who presents to the ED shortness of breath today. The patient was last hospitalized in the hospital back in December a stroke. Pt normally ambulates with a cane. He admits to not taking his Lasix medication today. The patient denies any fever, chills, nausea, vomiting, diarrhea, or abdominal pain. The patient denies any palpitations or chest pain. PCP: Dr. Danitza Beavers <Emmanuelle Fish - Last Filed: 04/12/17 01:19> <Vicky Emmanuel - Last Filed: 04/12/17 16:44> <Carina Cisneros - Last Filed: 04/15/17 08:07> - General Chief Complaint: Shortness of Breath Stated Complaint: RESPIRATORY Time Seen by Provider: 04/12/17 00:44 Past History <Emmanuelle Fish - Last Filed: 04/12/17 01:19> - Past Medical History Cardiac Disorders: Yes (ATRIAL FIB) CVA: Yes CHF: Yes Dementia: (HX POOR HISTORIAN) Diabetes: Yes HTN: Yes Hypercholesterolemia: Yes Seizures: Yes (HOSPITALIZED IN 07/27) - Surgical History Cardiac Surgery: Yes (stent) - Suicide/Smoking/Psychosocial Hx Smoking History: Never smoked Have you smoked in the past 12 months: No Cigars Per Day: 0 Information on smoking cessation initiated: No 'Breaking Loose' booklet given: 12/31/16 Hx Alcohol Use: No Drug/Substance Use Hx: No Substance Use Type: None Hx Substance Use Treatment: No <Vicky Emmanuel - Last Filed: 04/12/17 16:44> <Carina Cisneros - Last Filed: 04/15/17 08:07> - Past Medical History Allergies/Adverse Reactions: Allergies Allergy/AdvReac Type Severity Reaction Status Date / Time No Known Allergies Allergy Verified 04/12/17 00:00 Home Medications: Ambulatory Orders Dabigatran Etexilate Mesylate [Pradaxa -] 150 mg PO BID 12/31/16 Furosemide [Lasix -] 40 mg PO Q48H 12/31/16 Sacubitril/Valsartan [Entresto 24 mg-26 mg Tablet] 1 tab PO BID #60 tab Carvedilol [Coreg -] 3.125 mg PO BID #60 tablet 04/12/17 Metolazone 10 mg PO WEEKLY 04/12/17 Simvastatin 40 mg PO HS 04/12/17 Review of Systems - Review of Systems Able to Perform ROS?: Yes Comments:: 04/12/17 01:20 CONSTITUTIONAL: Absent: fever, no chills, no fatigue EYES: Absent: visual changes ENT: Absent: ear pain, no sore throat CARDIOVASCULAR: Absent: chest pain, no palpitations RESPIRATORY: Present: Shortness of breath Absent: cough GI: Absent: abdominal pain, no nausea, no vomiting, no constipation, no diarrhea GENITOURINARY: Absent: dysuria, no frequency, no hematuria MUSKULOSKELETAL: Absent: back pain, no arthralgia, no myalgia SKIN: Absent: rash NEURO: Absent: headache <Emmanuelle Fish - Last Filed: 04/12/17 01:19> *Physical Exam - Vital Signs Last Vital Signs Temp Pulse Resp BP Pulse Ox 98.1 F 70 16 133/80 99 04/12/17 00:01 04/12/17 00:01 04/12/17 00:01 04/12/17 00:01 04/12/17 00:01 - Physical Exam Comments: 04/12/17 01:21 GENERAL: Well-appearing, well-nourished. No apparent distress. HEENT: Normocephalic, atraumatic. PERRL, EOM intact. CARDIOVASCULAR: (+)Irregularly irregular. Normal S1, S2. PULMONARY: Clear to auscultation bilaterally. ABDOMEN: Soft, non-distended, non-tender. EXTREMITIES: (+)3+ Pitting edema bilaterally. Normal ROM in all four extremities. SKIN: Warm, dry. No rash NEUROLOGICAL: No focal neurological deficits. <Emmanuelle Fish - Last Filed: 04/12/17 01:19> - Vital Signs Last Vital Signs Temp Pulse Resp BP Pulse Ox 98.1 F 70 16 133/80 99 04/12/17 00:01 04/12/17 00:01 04/12/17 00:01 04/12/17 00:01 04/12/17 00:01 <Vicky Emmanuel - Last Filed: 04/12/17 16:44> - Vital Signs Last Vital Signs Temp Pulse Resp BP Pulse Ox 98.1 F 70 16 133/80 99 04/12/17 00:01 04/12/17 00:01 04/12/17 00:01 04/12/17 00:01 04/12/17 00:01 <Carina Cisneros - Last Filed: 04/15/17 08:07> ED Treatment Course - LABORATORY CBC & Chemistry Diagram: 04/12/17 07:40 04/12/17 07:40 - RADIOLOGY Radiology Studies Ordered: Category Date Time Status CHEST X-RAY PORTABLE* [RAD] Stat Radiology 04/12/17 01:14 Ordered <Vicky Emmanuel - Last Filed: 04/12/17 16:44> - LABORATORY CBC & Chemistry Diagram: 04/12/17 07:40 04/12/17 07:40 - ADDITIONAL ORDERS Additional order review: Laboratory Results 04/12/17 04/12/17 04/12/17 02:08 02:05 02:05 Sodium 142 Potassium 3.9 Chloride 108 H Carbon Dioxide 25 Anion Gap 9 BUN 15 D Creatinine 1.0 Creat Clearance w eGFR > 60 Random Glucose 106 Calcium 9.1 Total Bilirubin 0.9 D AST 15 D ALT 18 Alkaline Phosphatase 91 Creatine Kinase 74 Troponin I 0.02 D B-Natriuretic Peptide 7604.36 H Total Protein 7.2 Albumin 3.1 L 04/12/17 04/12/17 04/12/17 01:30 01:30 01:30 Sodium Cancelled Potassium Cancelled Chloride Cancelled Carbon Dioxide Cancelled Anion Gap Cancelled BUN Cancelled Creatinine Cancelled Creat Clearance w eGFR Cancelled Random Glucose Cancelled Calcium Cancelled Total Bilirubin Cancelled AST Cancelled ALT Cancelled Alkaline Phosphatase Cancelled Creatine Kinase Cancelled Troponin I Cancelled B-Natriuretic Peptide Cancelled Total Protein Cancelled Albumin Cancelled 04/12/17 01:30 RBC 4.02 MCV 91.9 MCHC 33.0 RDW 14.1 MPV 8.9 Neutrophils % 60.4 D Lymphocytes % 18.4 D Monocytes % 9.3 Eosinophils % 10.9 H D Basophils % 1.0 <Carina Cisneros - Last Filed: 04/15/17 08:07> Medical Decision Making - Medical Decision Making 04/12/17 01:53 66-year-old male with past medical history of hypertension, CHF, presents with increasing lower extremity edema and shortness breath. He did not take his Lasix today. EKG is atrial fibrillation with PVCs, rate of 66 bpm. He has an incomplete left bundle branch block was found on a prior EKG Plan CBC, cardiac, coags, EKG, and probable admission <Vicky Emmanuel - Last Filed: 04/12/17 16:44> - Medical Decision Making Patient endorsed to me by Dr. Emmanuel at shift change. Patient with SOB and leg swelling, progressively worsening. He normally takes his lasix at night, therefore has not yet taken it today. Will give IV lasix in ED. Admit to hospitalist service. <Carina Cisneros - Last Filed: 04/15/17 08:07> *DC/Admit/Observation/Transfer - Attestations Scribe Attestion: 04/12/17 01:22 Documentation prepared by Emmanuelle Fish, acting as medical billing coordinator for Vicky Emmanuel MD. <Emmanuelle Fish - Last Filed: 04/12/17 01:19> <Vicky Emmanuel - Last Filed: 04/12/17 16:44> - Discharge Dispostion Admit: Yes <Carina Cisneros - Last Filed: 04/15/17 08:07> Diagnosis at time of Disposition: CHF (congestive heart failure) Qualifiers: Congestive heart failure type: unspecified congestive heart failure type Congestive heart failure chronicity: acute on chronic Qualified Code(s): I50.9 - Heart failure, unspecified - Discharge Dispostion Disposition: HOME Condition at time of disposition: Improved - Prescriptions - Referrals
[2017-04-12 01:38] LABS: EOSINOPHIL 10.9 % (0-4.5); MCH 30.4 pg (25.7-33.7); MEAN CELL VOLUME 91.9 fl (80-96); MEAN PLT VOLUME 8.9 fl (7.5-11.1); NEUTROPHILS 60.4 % (42.8-82.8); PLATELET COUNT 175 K/MM3 (134-434); RDW 14.1 % (11.9-15.9); WHITE BLOOD COUNT 7.5 K/mm3 (4.0-10.0)
[2017-04-12 02:45] LABS: TROPONIN I 0.02 ng/ml (0.00-0.05)
[2017-04-12 02:59] LABS: ALBUMIN 3.1 g/dl (3.4-5.0); ALK PHOS 91 U/L (45-117); ANION GAP 9 (8-16); BILIRUBIN,TOTAL 0.9 mg/dL (0.2-1.0); CALCIUM 9.1 mg/dL (8.5-10.1); CO2 25 mmol/L (21-32); GLUCOSE,RANDOM 106 mg/dL (74-106); SGOT/AST 15 U/L (15-37); SGPT/ALT 18 U/L (12-78); TOT PROT 7.2 g/dl (6.4-8.2)
[2017-04-12] MEDS ORDERED: FUROSEMIDE 40 MG/4 ML INJECTABLE VIAL IVPUSH ONE (03:14)
[2017-04-12] MEDS ORDERED: FUROSEMIDE 40 MG/4 ML INJECTABLE VIAL ONE (03:21)
--- NOTE | 2017-04-12 03:37 | PN ---
Teaching Attending Note Name of Resident: Alfie Curran ATTENDING PHYSICIAN STATEMENT I saw and evaluated the patient. I reviewed the resident's note and discussed the case with the resident. I agree with the resident's findings and plan as documented. SUBJECTIVE: 66 yo M with pmhx of CHF, A-Fib, DM, CKD, CVA with left sided defecits, who presents with shortness of breath. Pt. missed his lasix dose tonight, No chest pain or pressure, States SOB improved after lasix in ED. OBJECTIVE: Physical: VS: Vital Signs Period Temp Pulse Resp BP Sys/Giraldo Pulse Ox Last 24 Hr 98.1 F 64-70 16-18 133-134/80-99 95-99 GEN:NAD, Resting in bed, Able to speak full sentences HEENT: NCAT, PERRL, Throat without erythema or exudates CARD: II/ LULA RRR S1, S2 RESP: Coarse breath sounds all rich ABD: BSx4, NTD to palaption EXT: +2 Pitting edema, bilateral and equal CBCD WBC 7.5 K/mm3 (4.0-10.0) 04/12/17 01:30 RBC 4.02 M/mm3 (4.00-5.60) 04/12/17 01:30 Hgb 12.2 GM/dL (11.7-16.9) 04/12/17 01:30 Hct 37.0 % (35.4-49) 04/12/17 01:30 MCV 91.9 fl (80-96) 04/12/17 01:30 MCHC 33.0 g/dl (32.0-35.9) 04/12/17 01:30 RDW 14.1 % (11.9-15.9) 04/12/17 01:30 Plt Count 175 K/MM3 (134-434) D 04/12/17 01:30 MPV 8.9 fl (7.5-11.1) 04/12/17 01:30 CMP Sodium 142 mmol/L (136-145) 04/12/17 02:05 Potassium 3.9 mmol/L (3.5-5.1) 04/12/17 02:05 Chloride 108 mmol/L (98-107) H 04/12/17 02:05 Carbon Dioxide 25 mmol/L (21-32) 04/12/17 02:05 Anion Gap 9 (8-16) 04/12/17 02:05 BUN 15 mg/dL (7-18) D 04/12/17 02:05 Creatinine 1.0 mg/dL (0.7-1.3) 04/12/17 02:05 Creat Clearance w eGFR > 60 (>60) 04/12/17 02:05 Random Glucose 106 mg/dL (74-106) 04/12/17 02:05 Calcium 9.1 mg/dL (8.5-10.1) 04/12/17 02:05 Total Bilirubin 0.9 mg/dL (0.2-1.0) D 04/12/17 02:05 AST 15 U/L (15-37) D 04/12/17 02:05 ALT 18 U/L (12-78) 04/12/17 02:05 Alkaline Phosphatase 91 U/L (45-117) 04/12/17 02:05 Total Protein 7.2 g/dl (6.4-8.2) 04/12/17 02:05 Albumin 3.1 g/dl (3.4-5.0) L 04/12/17 02:05 CARDIAC ENZYMES Creatine Kinase 74 IU/L (39-308) 04/12/17 02:08 Troponin I 0.02 ng/ml (0.00-0.05) D 04/12/17 02:08 CXR- Vascular Congestion EKG- Afib 68, Incomplete LBBB, St-T wave flattening lateral leads Echo: 12/25- EF 38%, LV Mod dilated, Mod MR, MOd TR, ASSESSMENT AND PLAN: 66 yo M with pmhx of afib (on Pradexa), CHF, DM, CKD, CVA with L, residual defecit, who presented with shortness of breath 1.) Acute on Chronic Systolic/Diastolic Heart Failure - Lasix 40 IV - Strict I/Os - Daily weights - Fluid/NA restrict - C/W Entresto/Coreg - Trend Troponin/Ekg 2.) A-Fib - Rate Controlled - C/W home meds 3.) CVA hx with residual Defecits - C/W home meds - Lipitor/Pradaxa 4.) DM - FS - RAISS 5.) HTN - C/W Home meds Place in Obs-tle
--- NOTE | 2017-04-12 04:04 | HP ---
CHIEF COMPLAINT:Shortness of breath PCP: Dr. Timmy Beavers-also his pizzamaker HISTORY OF PRESENT ILLNESS: 66M wih history of HTN HLD CAD CHF A fb on pradaxa CVA about 3 months ago with residual left sided weakness presents to the emergency room with acute onset shortness of breath. History taken from . Patients symptoms started yesterday and worsened prompting him to come to the ED. Patient has been having worsening lower extremity edema. Patient last saw his PCP who is also his pizzamaker on 04/02/2017 and his lasix was decreased to 40mg po every other day from every day. states that he was on a blood pressure medication that used tyo drop his blood pressure too fast so the doctor stopped it. He denies nausea vomiting fevers chest pain or shortness of breath. Denies orthopnea. Denies urinary symptoms. endorses occasional chills. ER course was notable for: (1)CXR (2)EKG Labs (3)Lasix Recent Travel:Denies PAST MEDICAL HISTORY:As above PAST SURGICAL HISTORY: PCI/Stent Social History: Smoking:Denies Alcohol:no alcohol since 2009 Drugs: denies Allergies No Known Allergies Allergy (Verified 04/12/17 00:00) HOME MEDICATIONS: Home Medications Medication Instructions Recorded Dabigatran Etexilate Mesylate 150 mg PO BID 12/31/16 [Pradaxa -] Furosemide [Lasix -] 40 mg PO every other day 12/31/16 Sacubitril/Valsartan [Entresto 24 1 tab PO BID #60 tab 01/07/17 mg-26 mg Tablet] Metolazone 10 mg PO WEEKLY 04/12/17 Simvastatin 40 mg PO HS 04/12/17 REVIEW OF SYSTEMS CONSTITUTIONAL: Absent: fever, diaphoresis, generalized weakness, malaise, loss of appetite, weight change Present:chills HEENT: Absent: rhinorrhea, nasal congestion, throat pain, throat swelling, difficulty swallowing, mouth swelling, ear pain, eye pain, visual changes CARDIOVASCULAR: Absent: chest pain, syncope, palpitations, irregular heart rate, lightheadedness , peripheral edema RESPIRATORY: Absent: cough, orthopnea, wheezing, stridor, hemoptysism Present:shortness of breath, dyspnea with exertion GASTROINTESTINAL: Absent: abdominal pain, abdominal distension, nausea, vomiting, diarrhea, constipation, melena, hematochezia GENITOURINARY: Absent: dysuria, frequency, urgency, hesitancy, hematuria, flank pain, genital pain MUSCULOSKELETAL: Absent: myalgia, arthralgia, joint swelling, back pain, neck pain SKIN: Absent: rash, itching, pallor HEMATOLOGIC/IMMUNOLOGIC: Absent: easy bleeding, easy bruising, lymphadenopathy, frequent infections ENDOCRINE: Absent: unexplained weight gain, unexplained weight loss, heat intolerance, cold intolerance NEUROLOGIC: Absent: headache, focal weakness or paresthesias, dizziness, unsteady gait, seizure, mental status changes, bladder or bowel incontinence PSYCHIATRIC: Absent: anxiety, depression, suicidal or homicidal ideation, hallucinations. PHYSICAL EXAMINATION Vital Signs - 24 hr 04/12/17 04/12/17 04/12/17 00:01 03:47 03:48 Temperature 98.1 F Pulse Rate 70 Pulse Rate [ 64 Apical] Respiratory 16 18 Rate Blood Pressure 133/80 Blood Pressure 134/99 [Left Arm] O2 Sat by Pulse 99 95 99 Oximetry (%) GENERAL: Awake, alert, in no acute distress. HEAD: Normal with no signs of trauma. EYES: Pupils equal, round and reactive to light, extraocular movements intact EARS, NOSE, THROAT: Moist mucous membranes. NECK: Normal range of motion, supple LUNGS:fine bibasilar crackles HEART:Irregular ABDOMEN: Soft, nontender, not distended, normoactive bowel sounds, no guarding, no rebound MUSCULOSKELETAL: 5/5 muscle strength on right side of body and LUE. LLE has about 3-4/5 strength UPPER EXTREMITIES: warm, well-perfused. LOWER EXTREMITIES: warm, well-perfused. No calf tenderness. 3+ pitting edema bilaterally. NEUROLOGICAL: Cranial nerves II-XII intact. Normal speech. Laboratory Results - last 24 hr 04/12/17 04/12/17 04/12/17 01:30 01:30 01:30 WBC 7.5 RBC 4.02 Hgb 12.2 Hct 37.0 MCV 91.9 MCH 30.4 MCHC 33.0 RDW 14.1 Plt Count 175 D MPV 8.9 Neutrophils % 60.4 D Lymphocytes % 18.4 D Monocytes % 9.3 Eosinophils % 10.9 H D Basophils % 1.0 Sodium Cancelled Potassium Cancelled Chloride Cancelled Carbon Dioxide Cancelled Anion Gap Cancelled BUN Cancelled Creatinine Cancelled Creat Clearance w eGFR Cancelled Random Glucose Cancelled Calcium Cancelled Total Bilirubin Cancelled AST Cancelled ALT Cancelled Alkaline Phosphatase Cancelled Creatine Kinase Cancelled Troponin I Cancelled B-Natriuretic Peptide Total Protein Cancelled Albumin Cancelled 04/12/17 04/12/17 04/12/17 01:30 02:05 02:05 WBC RBC Hgb Hct MCV MCH MCHC RDW Plt Count MPV Neutrophils % Lymphocytes % Monocytes % Eosinophils % Basophils % Sodium 142 Potassium 3.9 Chloride 108 H Carbon Dioxide 25 Anion Gap 9 BUN 15 D Creatinine 1.0 Creat Clearance w eGFR > 60 Random Glucose 106 Calcium 9.1 Total Bilirubin 0.9 D AST 15 D ALT 18 Alkaline Phosphatase 91 Creatine Kinase Troponin I B-Natriuretic Peptide Cancelled 7604.36 H Total Protein 7.2 Albumin 3.1 L 04/12/17 02:08 WBC RBC Hgb Hct MCV MCH MCHC RDW Plt Count MPV Neutrophils % Lymphocytes % Monocytes % Eosinophils % Basophils % Sodium Potassium Chloride Carbon Dioxide Anion Gap BUN Creatinine Creat Clearance w eGFR Random Glucose Calcium Total Bilirubin AST ALT Alkaline Phosphatase Creatine Kinase 74 Troponin I 0.02 D B-Natriuretic Peptide Total Protein Albumin ASSESSMENT/PLAN: 66M with multiple medical problems presents to the ED with acute on chronic exacerbation of systolic CHF. Acute exacerbation of systolic CHF:Patient has been compliant with medications per . Given Lasix 40mg IV Push in ED Strict I/Os daily weights O2 PRN-currently saturating 100% on room air trend troponin one more time with repeat EKG continue entresto Start coreg low dose 3.125 po BID while closely monitoring blood pressure patient discharged on coreg from his past admission at this hospital but stopped by PMD who is also his Auditing Control Clerk. Patient's states he was getting too hypotensive echo from previous admission noted Acute respiratory failure: secondary to CHF exacerbation see above A fib: Currently rate controlled continue pradaxa aspirin stopped on previous admission CAD: continue statin continue pradaxa HTN: Per meds recently changed as he was getting hypotensive to SBP 90's with previous BP meds-that medication that was stopped is unknown to the . HLD: continue Statin-Change simvastatin 40mg to atorvastatin 20mg on formulary DM: Not on meds glucose seems well controlled BGM ACHS ISS TIDAC H/O CVA: Residual LLE weakness on exam Aspirin stopped continue pradaxa outpatient follow up FEN: No IVF no electrolyte issues check mag and phos in AM diabetic/sodium controlled diet PPx: HSQ no GI PPx indicated PT consult Case discussed and patient seen with attending Dr. Landrum Home meds verified by me from the recent progress note from PMD's office that patient's brought with her. Visit type - Emergency Visit Emergency Visit: Yes Care time: The patient presented to the Emergency Department on the above date and was hospitalized for further evaluation of their emergent condition. - New Patient This patient is new to me today: Yes Date on this admission: 04/12/17 - Critical Care Critical Care patient: No
[2017-04-12] MEDS ORDERED: HEPARIN NA (PORCINE) 5,000 UNITS/ML 1ML VIAL SQ SCH (06:00)
[2017-04-12 06:29] VITALS: BMI 29.5
[2017-04-12] MEDS: INSULIN SLIDING SCALE (NOVOLOG) 1 VIAL SQ SCH ×2 (06:39→11:33)
[2017-04-12 08:14] LABS: MCH 29.9 pg (25.7-33.7); MCHC 32.4 g/dl (32.0-35.9); MEAN CELL VOLUME 92.2 fl (80-96); MEAN PLT VOLUME 8.7 fl (7.5-11.1); PLATELET COUNT 184 K/MM3 (134-434); RDW 13.9 % (11.9-15.9); WHITE BLOOD COUNT 6.4 K/mm3 (4.0-10.0)
[2017-04-12 08:32] LABS: INR 1.51 (0.82-1.09); PROTHROMBIN TIME (PATIENT) 16.8 SEC (9.98-11.88)
[2017-04-12 08:34] LABS: ACTIVATED PTT 49.4 SECONDS (26.9-34.4)
[2017-04-12 08:35] LABS: ALBUMIN 3.3 g/dl (3.4-5.0); ALK PHOS 97 U/L (45-117); ANION GAP 7 (8-16); BILIRUBIN,TOTAL 0.9 mg/dL (0.2-1.0); CALCIUM 9.3 mg/dL (8.5-10.1); CO2 30 mmol/L (21-32); CREATININE 1.1 mg/dL (0.7-1.3); GLUCOSE,RANDOM 104 mg/dL (74-106); MAGNESIUM 1.9 mg/dL (1.8-2.4); PHOSPHOROUS 2.8 mg/dL (2.5-4.9); SGOT/AST 13 U/L (15-37); SGPT/ALT 18 U/L (12-78); TOT PROT 7.7 g/dl (6.4-8.2)
[2017-04-12 09:23] LABS: CPK 80 IU/L (39-308); TROPONIN I < 0.02 ng/ml (0.00-0.05)
[2017-04-12] MEDS ORDERED: CARVEDILOL 3.125 MG TABLET (FP) PO SCH (10:00)
[2017-04-12] MEDS ORDERED: SACUBITRIL/VALSARTAN 24 MG-26 MG TABLET PO SCH (10:00)
[2017-04-12] MEDS ORDERED: PT OWN MED DRAWER 7, Y5N ONE (10:12)
[2017-04-12] MEDS ORDERED: DABIGATRAN ETEXILATE MESYLATE 150 MG CAPSULE PO SCH (10:30)
--- NOTE | 2017-04-12 13:58 | DS ---
Physical Examination Vital Signs: Vital Signs Temperature 98.6 F 04/12/17 08:55 Pulse Rate 77 04/12/17 08:55 Respiratory Rate 20 04/12/17 10:00 Blood Pressure 133/94 04/12/17 08:55 O2 Sat by Pulse Oximetry (%) 94 L 04/12/17 10:00 Findings/Remarks: Patient refused exam Labs: CBC, BMP 04/12/17 07:40 04/12/17 07:40 Discharge Summary Reason For Visit: CHF Current Active Problems CHF (congestive heart failure) (Chronic) Hospital Course: This is a 66 year old male with PMHx of HTN, hyperlipidemia, CAD, CHF, a.fib ( on Pradaxa), CVA (3 months ago with residual left sided weakness) who presented to the ED with acute onset of shortness of breath after missing a dose of Lasix. The patient received Lasix and reports feeling better. He denies any shortness of breath today. The patient was able to walk 65 ft with PT. VNS set up for the patient and home PT as well. Chest X-ray on admission with no definite evidence of acute pathology, left pleural based mass, chronic lung disease. Instructed the patient to follow-up with pulmonary as an outpatient for further evaluation of his chronic lung disease and left pleural based mass. Also discussed compliance with medication and to not skip a dose of any of his meds. This discharge took 45 minutes to complete. Condition: Improved - Instructions Diet, Activity, Other Instructions: Please return to the ED with new, persistent, or worsening symptoms. Please follow-up with providers as indicated. Referrals: Timmy Beavers [Primary Care Provider] - (Please follow-up with your pcp within 2-3 days. ) Eugene Ivan MD [Staff Physician] - (Please follow-up with your data center manager within 2-3 days for further management and to assess the addition of Coreg to your medication regimen. ) Disposition: VNS/HOME HEALTH CARE - Home Medications Comprehensive Discharge Medication List: Ambulatory Orders Dabigatran Etexilate Mesylate [Pradaxa -] 150 mg PO BID 12/31/16 Furosemide [Lasix -] 40 mg PO Q48H 12/31/16 Sacubitril/Valsartan [Entresto 24 mg-26 mg Tablet] 1 tab PO BID #60 tab Carvedilol [Coreg -] 3.125 mg PO BID #60 tablet 04/12/17 Metolazone 10 mg PO WEEKLY 04/12/17 Simvastatin 40 mg PO HS 04/12/17 This patient is new to me today: Yes Date on this admission: 04/12/17 Emergency Visit: Yes ED Registration Date: 04/12/17 Care time: The patient presented to the Emergency Department on the above date and was hospitalized for further evaluation of their emergent condition. Critical Care patient: No - Discharge Referral Referred to [facility] No
[2017-04-12 14:27] VITALS: TEMP 97.9
[2017-04-12 18:00] VITALS: BP 150/74; PULSE 72
--- NOTE | 2017-04-12 19:51 | EKG ---
Test Reason : Blood Pressure : / mmHG Vent. Rate : 066 BPM Atrial Rate : 048 BPM P-R Int : 000 ms QRS Dur : 112 ms QT Int : 434 ms P-R-T Axes : 000 008 247 degrees QTc Int : 454 ms ATRIAL FIBRILLATION WITH PREMATURE VENTRICULAR OR ABERRANTLY CONDUCTED COMPLEXES Baseline wander LOW VOLTAGE QRS INCOMPLETE LEFT BUNDLE BRANCH BLOCK ABNORMAL ECG WHEN COMPARED WITH ECG OF 31-DEC-2016 07:12, PREVIOUS ECG HAS UNDETERMINED RHYTHM, NEEDS REVIEW QRS AXIS SHIFTED LEFT NON-SPECIFIC CHANGE IN ST SEGMENT IN LATERAL LEADS CLINICAL CORRELATION AND FOLLOW UP TRACING Confirmed by TYLER HUERTA MD ([id number] on 04/12/2017 7:50:25 PM Referred By: Confirmed By:TYLER HUERTA MD
--- NOTE | 2017-04-12 20:09 | EKG ---
Test Reason : Blood Pressure : / mmHG Vent. Rate : 064 BPM Atrial Rate : 441 BPM P-R Int : 000 ms QRS Dur : 110 ms QT Int : 438 ms P-R-T Axes : 000 021 213 degrees QTc Int : 451 ms ATRIAL FIBRILLATION WITH PREMATURE VENTRICULAR OR ABERRANTLY CONDUCTED COMPLEXES INCOMPLETE LEFT BUNDLE BRANCH BLOCK ABNORMAL ECG WHEN COMPARED WITH ECG OF 12-APR-2017 01:43, NO SIGNIFICANT CHANGE WAS FOUND Confirmed by TYLER HUERTA MD ([id number] on 04/12/2017 8:09:25 PM Referred By: Shanika CHAVIRA Confirmed By:TYLER HUERTA MD
[2017-04-12] MEDS ORDERED: PATIENT'S OWN MEDICATION (NON-FORMULARY) (Simvastatin [Simvastatin] 40 MG) PO SCH (22:00)
[2017-04-12] MEDS ORDERED: ATORVASTATIN CA 20 MG TABLET (FP) PO SCH (22:00)
== END 2017-04-12 18:57 | disposition home health service (06) ==
LOC: JER 23:15 → JERBED 04-12 03:30 → J6S 04-12 06:19
PROVIDERS: ADMIT Internal Medicine; ATTEND Registered Nurse
PROC: 3E033GC Introduction of Other Therapeutic Substance into Peripheral Vein, Percutaneous Approach (ICD-10-PCS; principal; 2017-04-12)
PROC: 3E013GC Introduction of Other Therapeutic Substance into Subcutaneous Tissue, Percutaneous Approach (ICD-10-PCS; 2017-04-12)
DX: I50.43 Acute on chronic combined systolic (congestive) and diastolic (congestive) heart failure (principal); I48.91 Unspecified atrial fibrillation; I69.354 Hemiplegia and hemiparesis following cerebral infarction affecting left non-dominant side; G40.909 Epilepsy, unspecified, not intractable, without status epilepticus; I12.9 Hypertensive chronic kidney disease with stage 1 through stage 4 chronic kidney disease, or unspecified chronic kidney disease; E11.22 Type 2 diabetes mellitus with diabetic chronic kidney disease; N18.9 Chronic kidney disease, unspecified; Z79.01 Long term (current) use of anticoagulants
CPT/HCPCS: 36415; 71010-TC; 80053; 83735; 83880; 84100; 84484; 85025; 85027; 85610; 85730; 93005; 93010; 96372; 96374; 97116-GP; 97161-GP; 99285-25; G0378; J1644

== ENCOUNTER 2017-04-22 18:12 | Inpatient (IN) | payer OTHER ==
--- NOTE | 2017-04-22 18:40 | PDOC ---
History of Present Illness - General Chief Complaint: CVA/TIA Stated Complaint: BLOOD PRESSURE Time Seen by Provider: 04/22/17 18:31 History Source: Patient, Family - History of Present Illness Initial Comments: 04/22/17 23:14 Patient is a 66 y.o. male with a PMH of CVA (w/residual L sided weakness) AFib ( on Pradaxa) and HTN who presents via EMS following noticing he was difficult to arouse and difficulty ambulating. Patient's last seen normal was a 1 p.m. this afternoon when he ambulated downstairs and came in to the kitchen and spoke to his . At approximately 3 p.m. patient's noticed patient was sitting bent over in his chair and she had difficulty arousing him fully. Patient's further notes increased weakness on his L side and new onset of right sided weakness. At presentation, as per , patient was at his baseline mentation (A&O x2 - oriented to self and place). ROS is unobtainable due to patient's clinical condition. Past History - Past Medical History Allergies/Adverse Reactions: Allergies Allergy/AdvReac Type Severity Reaction Status Date / Time No Known Allergies Allergy Verified 04/22/17 18:16 Home Medications: Ambulatory Orders Dabigatran Etexilate Mesylate [Pradaxa -] 150 mg PO BID 12/31/16 Furosemide [Lasix -] 40 mg PO DAILY 12/31/16 Sacubitril/Valsartan [Entresto 24 mg-26 mg Tablet] 1 tab PO BID #60 tab Metolazone 10 mg PO WEEKLY 04/12/17 Simvastatin 40 mg PO HS 04/12/17 Anemia: No Asthma: No Cancer: No Cardiac Disorders: Yes (ATRIAL FIB) CVA: Yes (lt sided) COPD: No CHF: Yes DVT: No Dementia: (HX POOR HISTORIAN) Diabetes: Yes Dialysis: No GI Disorders: No Disorders: No HTN: Yes Hypercholesterolemia: Yes Liver Disease: No Psychiatric Problems: No Seizures: Yes (HOSPITALIZED IN 07/27) Lung CA: No - Surgical History Cardiac Surgery: Yes - Suicide/Smoking/Psychosocial Hx Smoking History: Never smoked Have you smoked in the past 12 months: No Cigars Per Day: 0 Information on smoking cessation initiated: No 'Breaking Loose' booklet given: 12/31/16 Hx Alcohol Use: No Drug/Substance Use Hx: No Substance Use Type: None Hx Substance Use Treatment: No Review of Systems - Review of Systems Able to Perform ROS?: No *Physical Exam - Vital Signs Last Vital Signs Temp Pulse Resp BP Pulse Ox 98.0 F 71 18 142/74 100 04/22/17 18:19 04/22/17 18:19 04/22/17 18:19 04/22/17 18:19 04/22/17 18:19 - Physical Exam General Appearance: Yes: Nourished Neck: positive: Trachea midline, Supple Respiratory/Chest: positive: Lungs Clear, Normal Breath Sounds Cardiovascular: positive: S1, S2 Gastrointestinal/Abdominal: positive: Soft Integumentary: positive: Normal Color, Dry, Warm Neurologic: positive: Other (See NIH Stroke Scale) ED Treatment Course - LABORATORY CBC & Chemistry Diagram: 04/22/17 20:44 04/22/17 19:00 Medical Decision Making - Medical Decision Making 04/22/17 23:27 Patient is a 66 y.o. male who presents for a concern for CVA, however at presentation patient was at baseline mentation with some new onset R sided weakness and as per worsening of residual L sided weakness. PLAN: 1. CT Head 1. CBC, CMP 2. UA/UC 3. IV Tylenol 4. CXR CT Head negative for acute intracranial process. Wet read of CXR shows improved B/L consolidation from prior CXR on 04/12. Neuro consulted, Dr. Jimenez, recommends MRI and admission. Inpatient admission pending hemolyzed labs re-draw @ time of signout to Dr. Vaughn (Resident) and Dr. Sommers ( Attending). *DC/Admit/Observation/Transfer Diagnosis at time of Disposition: Weakness
--- NOTE | 2017-04-22 18:41 | PDOC ---
NIH Stroke Scale - Initial Evaluation Level of consciousness: Not alert, but arousable with minimal stimulation Ask patient the month and their age: Answers one correctly Ask patient to open & close eyes; make fist and let go: Obeys both correctly Best gaze (horizontal eye movement): Normal Facial paresis (Show teeth/raise eyebrows/close eyes tight): Normal symmetrical movement Motor Function: Left Arm: Normal Motor Function: Right Arm: Some effort against gravity Motor Function: Left Leg: Normal (extends leg 30 degrees for 5 seconds without drift) Motor Function: Right Leg: Some effort against gravity Limb Ataxia: Untestable (Joint fused or limb amputated), explain: (Patient taken to CT Scan prior to evaluation) Best language (Describe picture, name items, read sentences): Mild to moderate aphasia Dysarthria (read several words): Mild to moderate slurring of words
[2017-04-22] MEDS ORDERED: SODIUM CHLORIDE 1,000 ML IV SCH (18:45)
[2017-04-22] MEDS ORDERED: ACETAMINOPHEN 1000 MG/100 ML VIAL (NON FORMULARY) IVPB ONE (19:28)
[2017-04-22 20:22] LABS: BASOPHIL 0.5 % (0-2.0); EOSINOPHIL 0.6 % (0-4.5); MCH 29.5 pg (25.7-33.7); MCHC 32.3 g/dl (32.0-35.9); MEAN CELL VOLUME 91.3 fl (80-96); MEAN PLT VOLUME 9.2 fl (7.5-11.1); PLATELET COUNT 153 K/MM3 (134-434); RDW 13.6 % (11.9-15.9); WHITE BLOOD COUNT 13.9 K/mm3 (4.0-10.0)
[2017-04-22] MEDS ORDERED: ACETAMINOPHEN INJECTION 100 ML IVPB ONE (20:27)
--- NOTE | 2017-04-22 20:34 | PDOC ---
Attending Attestation - Resident Resident Name: DaChristina - ED Attending Attestation I have performed the following: I have examined & evaluated the patient, The case was reviewed & discussed with the resident, I agree w/resident's findings & plan, Exceptions are as noted - HPI HPI: 04/22/17 20:26 66 M with h/o CVA w/ residual L side weakness, afib on pradaxa, presenting with worsening L sided weakness and difficulty ambulating. Per , pt was in US[facility] this afternoon at 1PM. Around 3PM, she tried to get the pt up, but he was having severe difficulty getting out of his chair. He is ambulatory at baseline with assistance, but this afternoon was unable to stand on his own. noticed that his left leg and arm were weaker than usual. Pt denies any complaints right now. Is alert and oriented only to person and place. reports that this is his baseline. - Physicial Exam PE: 04/22/17 20:30 "GENERAL: Awake, alert, and fully oriented, in no acute distress HEAD: No signs of trauma EYES: PERRLA, EOMI, sclera anicteric, conjunctiva clear ENT: Auricles normal inspection, hearing grossly normal, nares patent, oropharynx clear without exudates. Moist mucosa NECK: Nontender, no stepoffs, Normal ROM, supple, no lymphadenopathy, JVD, or masses LUNGS: Breath sounds equal, clear to auscultation bilaterally. No wheezes, and no crackles HEART: Regular rate and rhythm, normal S1 and S2, no murmurs, rubs or gallops ABDOMEN: Soft, nontender, normoactive bowel sounds. No guarding, no rebound. No masses EXTREMITIES: Normal range of motion, no edema. No clubbing or cyanosis. No cords, erythema, or tenderness NEUROLOGICAL: Cranial nerves II through XII intact. 4/5 strength in LUE and LLE , 5/5 strength and sensation RUE and RLE, cerebellar function intact SKIN: Warm, Dry, normal turgor, no rashes or lesions noted. " - Medical Decision Making 04/22/17 20:31 66 M with h/o CVA and residual L side weakness presenting with worsening L sided weakness. Pt found to be febrile in ER with temp 101.9. Pt's worsening neurological picture is likely due to recrudescence in the context of febrile illness. Will do full septic work up, including cultures, CXR, and urine. CTH to assess r/o bleed. Pt outside tpa window as last known normal was 1pm, and pt is on pradaxa. - Labs, UA, UCx, BCx - CXR - CT head - Neuro consult - Admit NIH Stroke Scale - Last Known Well Date/Time & Onset Date Last Known Well: 04/22/17 Time Last Known Well: 13:00 - Initial Evaluation Level of consciousness: Alert Ask patient the month and their age: Answers one correctly Ask patient to open & close eyes; make fist and let go: Obeys both correctly Best gaze (horizontal eye movement): Normal Visual field testing: No visual field loss Facial paresis (Show teeth/raise eyebrows/close eyes tight): Minor paralysis ( flattened nasolabial fold, asymmetry on smiling) Motor Function: Left Arm: Drift Motor Function: Right Arm: Normal (extends arm 90 (or 45) degrees for 10 seconds without drift Motor Function: Left Leg: Drift Motor Function: Right Leg: Normal (extends leg 30 degrees for 5 seconds without drift) Limb Ataxia: No ataxia Sensory(Use pinprick test arms,legs,trunk,face/side to side): Normal Best language (Describe picture, name items, read sentences): No Aphasia Dysarthria (read several words): Mild to moderate slurring of words Extinction and Inattention: No abnormality - Total Score NIH Stroke Scale Score: 5
[2017-04-22 20:35] LABS: INR 1.49 (0.82-1.09); PROTHROMBIN TIME (PATIENT) 16.8 SEC (9.98-11.88)
[2017-04-22 20:38] LABS: VENOUS BLOOD GAS HCO3 29.4 meq/L (19-25); VENOUS PH 7.41 (7.32-7.42)
[2017-04-22 20:53] LABS: MCH 29.9 pg (25.7-33.7); MCHC 32.8 g/dl (32.0-35.9); MEAN CELL VOLUME 91.1 fl (80-96); MEAN PLT VOLUME 9.2 fl (7.5-11.1); PLATELET COUNT 209 K/MM3 (134-434); RDW 13.9 % (11.9-15.9)
[2017-04-22 21:13] LABS: URINE APPEARANCE SLCLOUDY; URINE BILIRUBIN NEGATIVE (NEGATIVE); URINE BLOOD 2+ (NEGATIVE); URINE COLOR AMBER; URINE GLUCOSE (UA) NEGATIVE (NEGATIVE); URINE KETONE NEGATIVE (NEGATIVE); URINE NITRITE NEGATIVE (NEGATIVE); URINE UROBILINOGEN 4.0 E.U/dl mg/dL (0.2-1.0)
[2017-04-22 21:14] LABS: URINE PROTEIN 1+ (NEGATIVE)
[2017-04-22 21:35] LABS: URINE BACTERIA MODERATE /hpf (NONE SEEN); URINE MUCUS RARE; URINE RBC 30 /hpf (0-3); URINE WBC 55 /hpf (3-5)
[2017-04-22] MEDS ORDERED: CEFTRIAXONE 2 GM in DEXTROSE 5%-WATER - 100 ML IVPB ONE (22:33)
--- NOTE | 2017-04-23 01:33 | HP ---
CHIEF COMPLAINT: left sided weakness PCP: Dr. Martin HISTORY OF PRESENT ILLNESS: 66 yr old man with HTN, HLD, CVA (07/2016), CHF with LV systolic dysfunction brought in by and son due to worsened left sided weakness. around 1:30 he walked down the stairs by himself. Between 3-3:30 she noticed that he was falling to his left side in the chair, she tried to lift him but he was unable to stand due to left sided weakness, which worse than his usual baseline. He did not have LOC, denied dizziness, blurry vision, sob, chest pain, dysuria. as per , pt has been in his usual state of health all morning and for past few days with no complaints to mental status changes. Pt has residual left sided weakness from previous CVA. ER course was notable for: (1)head ct; code frankel initiated (2)Dr. Jimenez aware (3) MRI Recent Travel: none. PAST MEDICAL HISTORY: HTN, HLD, CAD s/p stents, CHF with systolic dysfunction, afib on pradaxa, NIDDM II(diet controlled) PAST SURGICAL HISTORY: cataracts surgery Social History: Smoking: denies Alcohol:denies Drugs: denies Family History: [place] Allergies No Known Allergies Allergy (Verified 04/22/17 18:16) HOME MEDICATIONS: Home Medications Medication Instructions Recorded Dabigatran Etexilate Mesylate 150 mg PO BID 12/31/16 [Pradaxa -] Furosemide [Lasix -] 40 mg PO DAILY 12/31/16 Sacubitril/Valsartan [Entresto 24 1 tab PO BID #60 tab 01/07/17 mg-26 mg Tablet] Metolazone 10 mg PO WEEKLY 04/12/17 Simvastatin 40 mg PO HS 04/12/17 REVIEW OF SYSTEMS CONSTITUTIONAL: Present: unintentioal weight loss since previous CVA Absent: fever, chills, diaphoresis, generalized weakness, malaise, loss of appetite HEENT: Absent: rhinorrhea, nasal congestion, throat pain, throat swelling, difficulty swallowing, mouth swelling, visual changes CARDIOVASCULAR: Present: irregular heart rate Absent: chest pain, syncope, palpitations, lightheadedness, peripheral edema RESPIRATORY: Absent: cough, shortness of breath, dyspnea with exertion, orthopnea, wheezing, stridor, hemoptysis GASTROINTESTINAL: Absent: abdominal pain, abdominal distension, nausea, vomiting, diarrhea, constipation, melena, hematochezia GENITOURINARY: Absent: dysuria, frequency, urgency, hesitancy, hematuria, flank pain MUSCULOSKELETAL: Absent: myalgia, arthralgia, joint swelling, back pain, neck pain SKIN: Absent: rash, itching, pallor ENDOCRINE: Absent: unexplained weight gain, unexplained weight loss, heat intolerance, cold intolerance NEUROLOGIC: Absent: headache, focal weakness or paresthesias, dizziness, unsteady gait, seizure, mental status changes, bladder or bowel incontinence PHYSICAL EXAMINATION Vital Signs - 24 hr 04/22/17 04/22/17 04/22/17 18:19 19:00 19:24 Temperature 98.0 F 101.9 F H Pulse Rate 71 Pulse Rate [ 64 Apical] Respiratory 18 20 Rate Blood Pressure 142/74 Blood Pressure 130/72 [Right Arm] O2 Sat by Pulse 100 100 97 Oximetry (%) 04/22/17 23:27 Temperature Pulse Rate Pulse Rate [ 81 Apical] Respiratory 20 Rate Blood Pressure Blood Pressure 85/74 [Right Arm] O2 Sat by Pulse 100 Oximetry (%) GENERAL: Awake, alert, and oriented to person/birthday/hospital/not year/month is july/not to day or date. in no acute distress. HEAD: Normal with no signs of trauma. EYES: Pupils equal, round and reactive to light, extraocular movements intact, sclera anicteric, conjunctiva clear. No lid lag. EARS, NOSE, THROAT: oropharynx clear without exudates/lesions, uvula midline. Moist mucous membranes. NECK: Normal range of motion, supple without lymphadenopathy, JVD, or masses. LUNGS: Breath sounds equal, clear to auscultation bilaterally. No wheezes, and no crackles. No accessory muscle use. HEART: irregularily irregular, normal S1 and S2 without murmur, rub or gallop. ABDOMEN: Soft, nontender, not distended, normoactive bowel sounds, no guarding, no rebound, no masses. MUSCULOSKELETAL: No bony deformities or tenderness. No CVA tenderness. UPPER EXTREMITIES: 2+ radial pulses, warm, well-perfused. No cyanosis. No clubbing. No peripheral edema. LOWER EXTREMITIES: 1+ dp pulses, warm, well-perfused. No calf tenderness. No peripheral edema. NEUROLOGICAL: Cranial nerves II-X, XII intact. weakness on shoulder shrug on left. Normal speech. facial symmetry. 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 handgrip 5/5 on right. hip extension on left 4/5, hip extension on right 5/5. dorsi flexion on left 4/5, plantar on left in 5/5. dorsi/planter on right 5/5. sensation intact on face, arms, legs and feet b/l. [id number] normal. PSYCHIATRIC: Cooperative. Good eye contact. Appropriate mood and affect. SKIN: Warm, dry, normal turgor, no rashes or lesions noted, normal capillary refill. Laboratory Results - last 24 hr 04/22/17 04/22/17 04/22/17 19:00 19:27 20:00 WBC 13.9 H D RBC 4.45 Hgb 13.1 Hct 40.6 MCV 91.3 MCH 29.5 MCHC 32.3 RDW 13.6 Plt Count 153 MPV 9.2 Neutrophils % 87.0 H D Lymphocytes % 4.9 L D Monocytes % 7.0 Eosinophils % 0.6 D Basophils % 0.5 PT with INR INR VBG pH POC VBG pCO2 POC VBG pO2 Mixed VBG HCO3 Sodium Cancelled Potassium Cancelled Chloride Cancelled Carbon Dioxide Cancelled Anion Gap Cancelled BUN Cancelled Creatinine Cancelled Creat Clearance w eGFR Cancelled Random Glucose Cancelled Lactic Acid Calcium Cancelled Total Bilirubin Cancelled AST Cancelled ALT Cancelled Alkaline Phosphatase Cancelled Creatine Kinase Cancelled Troponin I Cancelled Total Protein Cancelled Albumin Cancelled Triglycerides Cancelled Cholesterol Cancelled Total LDL Cholesterol Cancelled HDL Cholesterol Cancelled Urine Color Urine Appearance Urine pH Urine Protein Urine Glucose (UA) Urine Ketones Urine Blood Urine Nitrite Urine Bilirubin Urine Urobilinogen Urine RBC Urine WBC Ur Epithelial Cells Urine Bacteria Urine Mucus Anti-A Titer Cancelled Blood Type Cancelled Antibody Screen Cancelled Spec Expiration Date Cancelled 04/22/17 04/22/17 04/22/17 20:00 20:24 20:30 WBC RBC Hgb Hct MCV MCH MCHC RDW Plt Count MPV Neutrophils % Lymphocytes % Monocytes % Eosinophils % Basophils % PT with INR 16.80 H INR 1.49 H VBG pH 7.41 POC VBG pCO2 47.9 POC VBG pO2 20.0 L Mixed VBG HCO3 29.4 H Sodium Potassium Chloride Carbon Dioxide Anion Gap BUN Creatinine Creat Clearance w eGFR Random Glucose Lactic Acid 1.2 Calcium Total Bilirubin AST ALT Alkaline Phosphatase Creatine Kinase Troponin I Total Protein Albumin Triglycerides Cholesterol Total LDL Cholesterol HDL Cholesterol Urine Color Urine Appearance Urine pH Urine Protein Urine Glucose (UA) Urine Ketones Urine Blood Urine Nitrite Urine Bilirubin Urine Urobilinogen Urine RBC Urine WBC Ur Epithelial Cells Urine Bacteria Urine Mucus Anti-A Titer Blood Type Antibody Screen Spec Expiration Date 04/22/17 04/22/17 04/22/17 20:44 20:44 20:50 WBC 15.0 H RBC 4.41 Hgb 13.2 Hct 40.2 MCV 91.1 MCH 29.9 MCHC 32.8 RDW 13.9 Plt Count 209 D MPV 9.2 Neutrophils % Lymphocytes % Monocytes % Eosinophils % Basophils % PT with INR INR VBG pH POC VBG pCO2 POC VBG pO2 Mixed VBG HCO3 Sodium Cancelled Potassium Cancelled Chloride Cancelled Carbon Dioxide Cancelled Anion Gap Cancelled BUN Cancelled Creatinine Cancelled Creat Clearance w eGFR Cancelled Random Glucose Cancelled Lactic Acid Calcium Cancelled Total Bilirubin Cancelled AST Cancelled ALT Cancelled Alkaline Phosphatase Cancelled Creatine Kinase Troponin I Total Protein Cancelled Albumin Cancelled Triglycerides Cholesterol Total LDL Cholesterol HDL Cholesterol Urine Color Nan Urine Appearance Slcloudy Urine pH 5.0 Urine Protein 1+ H D Urine Glucose (UA) Negative Urine Ketones Negative Urine Blood 2+ H Urine Nitrite Negative Urine Bilirubin Negative Urine Urobilinogen 4.0 e.u/dl Urine RBC 30 Urine WBC 55 Ur Epithelial Cells Rare Urine Bacteria Moderate Urine Mucus Rare Anti-A Titer Blood Type Antibody Screen Spec Expiration Date ASSESSMENT/PLAN: 66 yr old man with HTN, CAD, hx of CVA brought in by his due to acute worsening of left sided weakness found to have sepsis likely secondary to UTI admitted for CVA work-up and evalution of sepsis #Sepsis likely due to UTI(fever, wbc, u/a), cxy without effusion/consolidation/ infiltrate - rocephin 1gm ivpb pending urine cultures/sensitivity - pt receiving gentle IVF in ED 42cc/hr dc'd, reassess for fluid overload and continuation of IVF due to CHF in the AM - monitor for fever, tylenol 650mg po prn for fever #CVA - suspicious for sepsis as cause for left sided weakness rather than acute CVA - head CT negative - MRI with no acute infarct, chronic microbleed noted in left cerebellar hemisphere - Dr. Jimenez consulted in ED - continue simvastatin and pradaxa at home dose - speech and swallow eval, physical therapy - cardiac monitoring - echo #Afib, premanent - continue pradaxa 150mg BID #Hypokalemia - replete 40meq po - repeat labs #hypotension - hold entresto, lasix and metalazone - gentle IVF in the ED, reassess with meds being held #NIDDM - BGM ACHS - defer niss for now #Diet: as per previous s&s eval: mechanical soft with thin liquids, soft diabetic diet now pending bedside nursing evaluation #DVT; on pradaxa Visit type - Emergency Visit Emergency Visit: Yes ED Registration Date: 04/23/17 Care time: The patient presented to the Emergency Department on the above date and was hospitalized for further evaluation of their emergent condition. - New Patient This patient is new to me today: Yes Date on this admission: 04/23/17 - Critical Care Critical Care patient: No
[2017-04-23 02:02] LABS: ALBUMIN 3.1 g/dl (3.4-5.0); ANION GAP 9 (8-16); BILIRUBIN,TOTAL 1.5 mg/dL (0.2-1.0); CALCIUM 8.7 mg/dL (8.5-10.1); CO2 28 mmol/L (21-32); GLUCOSE,RANDOM 116 mg/dL (74-106); SGOT/AST 11 U/L (15-37); SGPT/ALT 15 U/L (12-78); TOT PROT 7.5 g/dl (6.4-8.2)
[2017-04-23 02:03] LABS: ALK PHOS 93 U/L (45-117)
[2017-04-23 02:13] LABS: TROPONIN I 0.03 ng/ml (0.00-0.05)
--- NOTE | 2017-04-23 02:21 | PN ---
Teaching Attending Note Name of Resident: Indio Jones ATTENDING PHYSICIAN STATEMENT I saw and evaluated the patient. I reviewed the resident's note and discussed the case with the resident. I agree with the resident's findings and plan as documented. HPI is per present at bedside. SUBJECTIVE:66yo M with PMH CVA with residual L sided weakness, afib on pradaxa, HTN, CHF and DM presented after his noticed he was having a hard time ambulating with his cane at home. also noticed he was more lethargic than usual. as per he has not had any complaints recently. denies CP, SOB, fever , chills, N/V/C/D, dysuria, hematuria or urinary frequency, no recent changes to his medication. pt was recently on observation for SOB which was treated with lasix and was sent home OBJECTIVE: Last Vital Signs Temp Pulse Resp BP Pulse Ox 101.9 F H 81 20 85/74 100 04/22/17 19:24 04/22/17 23:27 04/22/17 23:27 04/22/17 23:27 04/22/17 23:27 General NAD A&O x2 (self and location) CV S1 S2 irregular no chest wall tenderness Lungs CTA B/L no wheezing/rales/rhonchi Abdomen soft NT/ND no suprapubic tenderness/distention Extremities no pedal edema Neuro CN grossly intact, sensation grossly intact, strength 4/5 LUE 5/5 RUE 3/5 LLE 5/5 RLE ASSESSMENT AND PLAN: 66yo M with PMH CVA with residual L sided weakness, afib on pradaxa, HTN, CHF and DM presented after his noticed he was having a hard time ambulating with his cane at home and found to be septic due to UTI 1. Sepsis due to UTI-fever with leukocytosis. likely cause of neurological change witnessed by the . started on Ceftriaxone by the ER, will continue. will hold giving fluids at this time due to CHF and no signs of lactic acidosis. hold oral antihypertensives. and monitor. f/u Cx 2. L weakness- likely due to infection and not a new stroke. Initial head CT negative. MRI done. awaiting results. neuro consulted. place on stroke unit for continuos cardiac monitoring. PT and speech and swallow evaluation. on pradaxa and statin 3. CHF- no signs of volume overload. hold oral antihypertensives. will be cautious when giving IVF. 4. Afib on pradaxa- rate controlled. cont to monitor for now 5. DM- diet controlled. was taken off hypoglycemics in the past 6. hypokalemia- Kcl po 7. DVT ppx- pradaxa
[2017-04-23] MEDS ORDERED: POTASSIUM CHLORIDE ORAL LIQUID 20 MEQ/15 ML PO ONE (02:35)
[2017-04-23] MEDS ORDERED: POTASSIUM CHLORIDE ORAL LIQUID 20 MEQ/15 ML ONE (03:37)
[2017-04-23] MEDS ORDERED: CEFTRIAXONE 100 ML IVPB ONE (03:37)
[2017-04-23 10:52] LABS: BASOPHIL 0.4 % (0-2.0); EOSINOPHIL 1.2 % (0-4.5); MCH 29.3 pg (25.7-33.7); MEAN CELL VOLUME 91.3 fl (80-96); MEAN PLT VOLUME 8.5 fl (7.5-11.1); NEUTROPHILS 84.2 % (42.8-82.8); PLATELET COUNT 180 K/MM3 (134-434); RDW 13.4 % (11.9-15.9); WHITE BLOOD COUNT 14.6 K/mm3 (4.0-10.0)
--- NOTE | 2017-04-23 11:08 | EKG ---
Test Reason : Blood Pressure : / mmHG Vent. Rate : 079 BPM Atrial Rate : 085 BPM P-R Int : 000 ms QRS Dur : 120 ms QT Int : 384 ms P-R-T Axes : 000 046 243 degrees QTc Int : 440 ms ATRIAL FIBRILLATION WITH PREMATURE VENTRICULAR OR ABERRANTLY CONDUCTED COMPLEXES ANTERIOR INFARCT , AGE UNDETERMINED ABNORMAL ECG WHEN COMPARED WITH ECG OF 12-APR-2017 12:56, NO SIGNIFICANT CHANGE WAS FOUND Confirmed by FRANKLIN PATE MD ([id number]) on 04/23/2017 11:08:23 AM Referred By: Confirmed By:FRANKLIN PATE MD
[2017-04-23] MEDS: cefTRIAXone 1 GM/50 ML BAG (PRE-DOCKED) IVPB SCH (11:09)
[2017-04-23] MEDS: DABIGATRAN ETEXILATE MESYLATE 150 MG CAPSULE PO SCH ×2 (11:09→21:47)
[2017-04-23 11:17] LABS: ANION GAP 9 (8-16); CALCIUM 9.1 mg/dL (8.5-10.1); CO2 28 mmol/L (21-32); CREATININE 0.9 mg/dL (0.7-1.3); GLUCOSE,RANDOM 156 mg/dL (74-106)
[2017-04-23 11:19] LABS: URINE LEUK ESTERASE Negative (NEGATIVE)
--- NOTE | 2017-04-23 13:41 | CONSULT ---
Consult - text type - Consultation Consultation Note: Neurology History of Present Illness Patient is a 66 y.o. male with a PMH of CVA (w/residual L sided weakness) AFib ( on Pradaxa) and HTN who presents via EMS following noticing he was difficult to arouse and difficulty ambulating. Patient's last seen normal was a 1 p.m. yesterday afternoon when he ambulated downstairs and came in to the kitchen and spoke to his . At approximately 3 p.m. patient's noticed patient was sitting bent over in his chair and she had difficulty arousing him fully. Patient's further notes increased weakness on his L side and new onset of right sided weakness. CT head was completed and no acute changes noted. Spoke to ER overnight. Patient was not TPA due to being out of window as well as being on Pradaxa. MRI brain completed overnight and reviewed and without acute changes. Patient reports feeling as himself and at baseline. Past History - Past Medical History Allergies/Adverse Reactions: Allergies Allergy/AdvReac Type Severity Reaction Status Date / Time No Known Allergies Allergy Verified 04/22/17 18:16 Home Medication List Medication Instructions Recorded Confirmed Type Dabigatran Etexilate Mesylate 150 mg PO BID 12/31/16 04/22/17 History [Pradaxa -] Furosemide [Lasix -] 40 mg PO DAILY 12/31/16 04/22/17 History Metolazone 10 mg PO WEEKLY 04/12/17 04/22/17 History Simvastatin 40 mg PO HS 04/12/17 04/22/17 History Active Medications Generic Name Dose Route Start Last Admin Trade Name Mylesq PRN Reason Stop Dose Admin Atorvastatin Calcium 20 mg 04/23/17 22:00 Lipitor - PO HS [facility] Ceftriaxone Sodium 1 gm 04/23/17 10:00 04/23/17 11:09 Rocephin 1gm Ivpb (Pre-Docked) IVPB 1 gm DAILY HERBERT Administration Protocol Dabigatran 150 mg 04/23/17 10:00 04/23/17 11:09 Pradaxa - PO 150 mg BID HERBERT Administration Anemia: No Asthma: No Cancer: No Cardiac Disorders: Yes (ATRIAL FIB) CVA: Yes (lt sided) COPD: No CHF: Yes DVT: No Dementia: (HX POOR HISTORIAN) Diabetes: Yes Dialysis: No GI Disorders: No Disorders: No HTN: Yes Hypercholesterolemia: Yes Liver Disease: No Psychiatric Problems: No Seizures: Yes (HOSPITALIZED IN 07/27) Lung CA: No - Surgical History Cardiac Surgery: Yes - Suicide/Smoking/Psychosocial Hx Smoking History: Never smoked Have you smoked in the past 12 months: No Cigars Per Day: 0 Information on smoking cessation initiated: No 'Breaking Loose' booklet given: 12/31/16 Hx Alcohol Use: No Drug/Substance Use Hx: No Substance Use Type: None Hx Substance Use Treatment: No Review of Systems - Review of Systems Able to Perform ROS?: No *Physical Exam - Vital Signs Last Vital Signs Temp Pulse Resp BP Pulse Ox 98.0 F 71 18 142/74 100 04/22/17 18:19 04/22/17 18:19 04/22/17 18:19 04/22/17 18:19 04/22/17 18:19 - Physical Exam General Appearance: Yes: Nourished Neck: positive: Trachea midline, Supple Respiratory/Chest: positive: Lungs Clear, Normal Breath Sounds Cardiovascular: positive: S1, S2 Gastrointestinal/Abdominal: positive: Soft Integumentary: positive: Normal Color, Dry, Warm Neurologic: CN intact, normal gaze, speech intact, no facial droop, LUE and LLE 5/5, RLE 5-/5, Sensory intact, gait deferred CT head and MRI brain reviewed Plan 66 y.o. male with a PMH of CVA (w/residual L sided weakness) AFib (on Pradaxa) and HTN who presents via EMS following noticing he was difficult to arouse and difficulty ambulating. Patient's last seen normal was a 1 p.m. yesterday afternoon when he ambulated downstairs and came in to the kitchen and spoke to his . At approximately 3 p.m. patient's noticed patient was sitting bent over in his chair and she had difficulty arousing him fully. Patient's further notes increased weakness on his L side and new onset of right sided weakness. CT head was completed and no acute changes noted. Spoke to ER overnight. Patient was not TPA due to being out of window as well as being on Pradaxa. MRI brain completed overnight and reviewed and without acute changes. Patient reports feeling as himself and at baseline. Most likely TIA, not CVA. Monitor arrythmia/Afib, Continue Pradaxa. Monityor b/p can continue Lasix, goal range < 140/90. COntinue statin. Continue medical mgmt and optimization for UTI , on Ceftriaxone.
[2017-04-23 17:11] VITALS: BMI 28.3
[2017-04-23] MEDS ORDERED: PT OWN MED DRAWER 7, Y5N ONE ×2 (17:32→21:40)
[2017-04-23] MEDS ORDERED: ACETAMINOPHEN 325 MG TABLET (FP) PO ONE (18:35)
[2017-04-23] MEDS: ATORVASTATIN CA 20 MG TABLET (FP) PO SCH (21:47)
[2017-04-24 08:02] LABS: MCH 29.5 pg (25.7-33.7); MCHC 32.6 g/dl (32.0-35.9); MEAN CELL VOLUME 90.7 fl (80-96); PLATELET COUNT 167 K/MM3 (134-434); RDW 13.2 % (11.9-15.9); WHITE BLOOD COUNT 9.9 K/mm3 (4.0-10.0)
[2017-04-24] MEDS ORDERED: PT OWN MED DRAWER 7, Y5N ONE ×2 (10:32→22:03)
[2017-04-24] MEDS: DABIGATRAN ETEXILATE MESYLATE 150 MG CAPSULE PO SCH ×2 (10:36→22:04)
[2017-04-24] MEDS: CEFTRIAXONE 1 G/50 ML PREMIX 50 ML IVPB SCH (11:08)
[2017-04-24] MEDS: cefTRIAXone 1 GM/50 ML BAG (PRE-DOCKED) IVPB SCH (11:10)
--- NOTE | 2017-04-24 16:18 | PN ---
Progress Note (short form) - Note Progress Note: Subjective: The patient was seen and examined in the hallway. He is A&Ox1 ( person only). He has no complaints at this time. Current Medications Generic Name Dose Route Start Last Admin Trade Name Eliel PRN Reason Stop Dose Admin Atorvastatin Calcium 20 mg 04/23/17 22:00 04/23/17 21:47 Lipitor - PO 20 mg HS HERBERT Administration Dabigatran 150 mg 04/23/17 10:00 04/24/17 10:36 Pradaxa - PO 150 mg BID HERBERT Administration CEFTRIAXONE 1 G/50 ML PREMIX 50 mls @ 100 mls/hr 04/24/17 10:45 04/24/17 11:08 Ceftriaxone 1 Gm-D5w Bag IVPB 100 mls/hr DAILY HERBERT Administration Objective: Vital Signs Period Temp Pulse Resp BP Sys/Giraldo Pulse Ox Last 24 Hr 97.4 F-98.1 F 68-85 20-20 98-122/60-74 98-100 Physical Exam: General: NAD, A&Ox1 (person only) Lungs: CTA bilaterally Heart: Irregular rate, S1S2 Abd: Soft, non-tender, non-distended. Normoactive bowel sounds Ext: Warm, well-perfused. 2+ DP/PT bilaterally. No edema Neuro: LUE/LLE 4/5 muscle strenght. RUE/RLE 5/5 muscle strength. No facial droop CBCD WBC 9.9 K/mm3 (4.0-10.0) D 04/24/17 07:00 RBC 4.08 M/mm3 (4.00-5.60) 04/24/17 07:00 Hgb 12.0 GM/dL (11.7-16.9) 04/24/17 07:00 Hct 37.0 % (35.4-49) 04/24/17 07:00 MCV 90.7 fl (80-96) 04/24/17 07:00 MCHC 32.6 g/dl (32.0-35.9) 04/24/17 07:00 RDW 13.2 % (11.9-15.9) 04/24/17 07:00 Plt Count 167 K/MM3 (134-434) 04/24/17 07:00 MPV 9.0 fl (7.5-11.1) 04/24/17 07:00 CMP Sodium 137 mmol/L (136-145) 04/23/17 10:10 Potassium 3.8 mmol/L (3.5-5.1) 04/23/17 10:10 Chloride 100 mmol/L (98-107) 04/23/17 10:10 Carbon Dioxide 28 mmol/L (21-32) 04/23/17 10:10 Anion Gap 9 (8-16) 04/23/17 10:10 BUN 15 mg/dL (7-18) 04/23/17 10:10 Creatinine 0.9 mg/dL (0.7-1.3) 04/23/17 10:10 Creat Clearance w eGFR > 60 (>60) 04/23/17 01:11 Random Glucose 156 mg/dL (74-106) H D 04/23/17 10:10 Calcium 9.1 mg/dL (8.5-10.1) 04/23/17 10:10 Total Bilirubin 1.5 mg/dL (0.2-1.0) H D 04/23/17 01:11 AST 11 U/L (15-37) L 04/23/17 01:11 ALT 15 U/L (12-78) 04/23/17 01:11 Alkaline Phosphatase 93 U/L (45-117) 04/23/17 01:11 Total Protein 7.5 g/dl (6.4-8.2) 04/23/17 01:11 Albumin 3.1 g/dl (3.4-5.0) L 04/23/17 01:11 CARDIAC ENZYMES Creatine Kinase 74 IU/L (39-308) 04/23/17 01:11 Troponin I 0.03 ng/ml (0.00-0.05) D 04/23/17 01:11 Microbiology 04/22/17 20:50 Urine - Urine Clean Catch Urine Culture - Final NO GROWTH OBTAINED 04/22/17 19:00 Blood - Peripheral Venous Blood Culture - Preliminary NO GROWTH OBTAINED AFTER 24 HOURS, INCUBATION TO CONTINUE FOR 4 DAYS. 04/22/17 19:00 Blood - Peripheral Venous Blood Culture - Preliminary NO GROWTH OBTAINED AFTER 24 HOURS, INCUBATION TO CONTINUE FOR 4 DAYS. 04/23/17 01:11 Nasopharyngeal Swab Influenza Types A,B Antigen (NGHIA) - Final 04/23/17 01:11 Nasopharyngeal Swab - Final Assessment: This is a 66 year old male with PMHx of CVA (L sided residual weakness), a.fib on Pradaxa, HTN, CHF, DM who presented to the ED when his saw that he was having difficulty ambulating with his cane 1) Neuro: L sided weakness - Worse than baseline - Now per patient back to baseline - TIA? - MRI with no evidence of acute infarct - F/u ECHO - Awaiting speech and swallow evaluation - Awaiting PT evaluation Hx of CVA 2) ID: Sepsis 2/2 presumed UTI - WBC wnl today - However urine culture with no growth - UA with moderate bacteria and 55 WBC - Continue Ceftriaxone for now as it appears the patient improved after abx were started - Unclear if urine was collected before or after first dose of abx 3) Cardiology: A.fib - Continue Pradaxa CHF - No evidence of exacerbation at this time - Resume Lasix tomorrow if BP not low - Hold Metolazone (once weekly) - Resume Entresto tomorrow with hold parameters 4) Endocrine: DM- diet controlled - BGM ACHS - ISS ACHS 5) F/E/N: - Monitor electrolytes - Diabetic diet 6) Prophylaxis: - On Pradaxa - PT evaluation 7) Dispo: - Requires continued inpatient care CODE STATUS: FULL CODE Visit type - Emergency Visit Emergency Visit: Yes ED Registration Date: 04/23/17 Care time: The patient presented to the Emergency Department on the above date and was hospitalized for further evaluation of their emergent condition. - New Patient This patient is new to me today: Yes Date on this admission: 04/24/17 - Critical Care Critical Care patient: No
[2017-04-24] MEDS: ATORVASTATIN CA 20 MG TABLET (FP) PO SCH (22:04)
[2017-04-25 08:26] LABS: EOSINOPHIL 10.1 % (0-4.5); MCH 29.2 pg (25.7-33.7); MCHC 32.1 g/dl (32.0-35.9); MEAN PLT VOLUME 8.9 fl (7.5-11.1); NEUTROPHILS 57.9 % (42.8-82.8); PLATELET COUNT 157 K/MM3 (134-434); RDW 13.1 % (11.9-15.9); WHITE BLOOD COUNT 6.5 K/mm3 (4.0-10.0)
[2017-04-25 08:57] LABS: ALBUMIN 2.8 g/dl (3.4-5.0); ANION GAP 9 (8-16); CALCIUM 8.5 mg/dL (8.5-10.1); CO2 27 mmol/L (21-32); GLUCOSE,RANDOM 84 mg/dL (74-106)
[2017-04-25 09:00] LABS: ALK PHOS 88 U/L (45-117); BILIRUBIN,TOTAL 0.8 mg/dL (0.2-1.0); CREATININE 0.9 mg/dL (0.7-1.3); SGOT/AST 11 U/L (15-37); SGPT/ALT 17 U/L (12-78); TOT PROT 6.9 g/dl (6.4-8.2)
[2017-04-25] MEDS ORDERED: PT OWN MED DRAWER 7, Y5N ONE ×3 (09:08→21:05)
[2017-04-25] MEDS: DABIGATRAN ETEXILATE MESYLATE 150 MG CAPSULE PO SCH ×2 (09:23→21:15)
[2017-04-25] MEDS: SACUBITRIL/VALSARTAN 24 MG-26 MG TABLET PO SCH ×2 (09:23→21:15)
[2017-04-25] MEDS: FUROSEMIDE 40 MG TABLET (FP) PO SCH (09:23)
[2017-04-25] MEDS: CEFTRIAXONE 1 G/50 ML PREMIX 50 ML IVPB SCH (09:24)
--- NOTE | 2017-04-25 10:09 | PN ---
Progress Note (short form) - Note Progress Note: Neurology History of Present Illness Patient is a 66 y.o. male with a PMH of CVA (w/residual L sided weakness) AFib ( on Pradaxa) and HTN who presents via EMS following noticing he was difficult to arouse and difficulty ambulating. Patient's last seen normal was a 1 p.m. yesterday afternoon when he ambulated downstairs and came in to the kitchen and spoke to his . At approximately 3 p.m. patient's noticed patient was sitting bent over in his chair and she had difficulty arousing him fully. Patient's further notes increased weakness on his L side and new onset of right sided weakness. CT head was completed and no acute changes noted. Spoke to ER overnight. Patient was not TPA due to being out of window as well as being on Pradaxa. MRI brain completed and reviewed and without acute changes. Patient reports feeling as himself, on ceftriaxone and stable. Active Medications Atorvastatin Calcium (Lipitor -) 20 mg PO HS [facility] Last Admin: 04/24/17 22:04 Dose: 20 mg Dabigatran (Pradaxa -) 150 mg PO BID [facility] Last Admin: 04/25/17 09:23 Dose: 150 mg Furosemide (Lasix -) 40 mg PO DAILY [facility] Last Admin: 04/25/17 09:23 Dose: 40 mg CEFTRIAXONE 1 G/50 ML PREMIX (Ceftriaxone 1 Gm-D5w Bag) 50 mls @ 100 mls/hr IVPB DAILY [facility] Last Admin: 04/25/17 09:24 Dose: 100 mls/hr *Physical Exam Vital Signs Temperature 97.6 F 04/25/17 06:00 Pulse Rate 67 04/25/17 06:00 Respiratory Rate 18 04/25/17 06:00 Blood Pressure 121/64 04/25/17 06:00 O2 Sat by Pulse Oximetry (%) 99 04/24/17 21:00 - Physical Exam General Appearance: Yes: Nourished Neck: positive: Trachea midline, Supple Respiratory/Chest: positive: Lungs Clear, Normal Breath Sounds Cardiovascular: positive: S1, S2 Gastrointestinal/Abdominal: positive: Soft Integumentary: positive: Normal Color, Dry, Warm Neurologic: CN intact, normal gaze, speech intact, no facial droop, LUE and LLE 5/5, RLE 5-/5, Sensory intact, gait deferred CT head and MRI brain reviewed Plan 66 y.o. male with a PMH of CVA (w/residual L sided weakness) AFib (on Pradaxa) and HTN who presents via EMS following noticing he was difficult to arouse and difficulty ambulating. Patient's last seen normal was a 1 p.m. yesterday afternoon when he ambulated downstairs and came in to the kitchen and spoke to his . At approximately 3 p.m. patient's noticed patient was sitting bent over in his chair and she had difficulty arousing him fully. Patient's further notes increased weakness on his L side and new onset of right sided weakness. CT head was completed and no acute changes noted. Patient was not TPA due to being out of window as well as being on Pradaxa. MRI brain completed and reviewed and without acute changes. Patient reports feeling as himself and at baseline. Most likely TIA, not CVA. Monitor arrythmia/Afib, Continue Pradaxa. Monityor b/p can continue Lasix, goal range < 140/90. COntinue statin. Continue medical mgmt and optimization for UTI, on Ceftriaxone.
--- NOTE | 2017-04-25 10:27 | CONSULT ---
Admitting History and Physical - Primary Care Physician PCP: Kelly Prince - Admission History of Present Illness: 66 year old male with PMHx of CVA with L sided residual weakness, a.fib, HTN, CHF, DM presented to the ED with difficulty ambulating with his cane L sided weakness reported to be worse than baseline initially. Improvement to baseline? ID: Sepsis 2/2 presumed UTI Selected Entries 04/22/17 04/22/17 04/23/17 18:19 19:24 06:47 Breakfast Lunch Supper Temperature 98.0 F 101.9 F H 97.9 F 04/23/17 04/23/17 04/23/17 09:00 15:00 16:55 Breakfast Lunch Supper Temperature 98.8 F 98.2 F 98.1 F 04/23/17 04/23/17 04/24/17 18:38 22:00 06:00 Breakfast Lunch Supper 50% Temperature 98.1 F 97.4 F L 04/24/17 04/24/17 04/24/17 10:00 11:28 15:17 Breakfast 100% Lunch 100% Supper Temperature 97.6 F 97.4 F L 04/24/17 04/24/17 04/24/17 17:09 18:37 22:00 Breakfast Lunch Supper 100% Temperature 98.1 F 98 F 04/25/17 06:00 Breakfast Lunch Supper Temperature 97.6 F Laboratory Tests 04/23/17 04/24/17 04/25/17 10:10 07:00 06:00 WBC 14.6 H 9.9 D 6.5 D "Found by his daughter on the floor by his bed at home. Presented to the ER for slurred and garbled speech. Found to have aphasia, right sided weakness, right sided facial droop and V-Tach. A CT scan of the head shows moderate atrophy, ventricular dilatation and moderate to marked periventricular chronic microvascular changes, superimposed infarct of intermediate age (no TPA administration was indicated). Admitted with CVA" PMHX: CVA, TIA, CHF, CAD, Stent placement, HTN, Type II DM Selected Entries 01/02/17 01/02/17 01/02/17 01:53 05:46 09:00 Breakfast Lunch Supper Temperature 97.8 F 97.6 F 97.8 F 01/02/17 01/02/1717 14:32 17:21 21:00 Breakfast 25% Lunch 100% Supper Temperature 98.3 F 98.1 F 98.9 F 01/02/17 01/03/17 01/03/17 22:40 01:38 05:48 Breakfast Lunch Supper 100% Temperature 97.7 F 98 F 01/03/17 10:30 Breakfast 100% Lunch Supper Temperature Known to me from December 2016 admission: Presented to the ER for slurred and garbled speech. Found to have aphasia, right sided weakness, right sided facial droop and V-Tach. A CT scan of the head shows moderate atrophy, ventricular dilatation and moderate to marked periventricular chronic microvascular changes, superimposed infarct of intermediate age (no TPA administration was indicated). Dx of CVA Moderate Aphasia- [facility]. History Source: Patient, Medical Record Limitations to Obtaining History: Clinical Condition - Past Medical History Cardiovascular: Yes: AFIB, CHF, HTN, Hyperlipdemia Endocrine: Yes: Diabetes Mellitus - Past Surgical History Past Surgical History: Yes: Cataract Removal - Smoking History Smoking history: Never smoked Have you smoked in the past 12 months: No - Alcohol/Substance Use Hx Alcohol Use: No History - Admission Reason For Visit: WEAKNESS - Diagnostics X-ray: Report Reviewed CT Scan: Report Reviewed MRI: Report Reviewed (multiple chronic infarct and m/v changes.) - General Mental Status: Awake and Alert, Forgetful, Vague Attention: Distractible, Mild Impairment, Moderate Impairment (He was sleeping when I arrived. Distractible with repetition of questions needed to elicit response. Some answers were appropriate, but many were vague,at times perseverative, incomplete with anomia in propositional sppech tasks. Able to name upon confrontation on simple level. Able to repeat.) Ability to Follow Directions: Fair Head/Neck Control: Fair - Hearing Hearing: Functional Hearing: Normal Hearing Aide: No Speech Evaluation - Communication Primary Language: ARABIC Communication: Yes: Simple Responses, Aphasia Oral Expression Ability: Yes: Mild Impairment, Moderate Impairment - Speech Production Able to Make Needs Known: Yes: Mildly Impaired, Moderately Impaired Intelligibility: Yes: WNL - Speech Characteristics Voice Loudness: Normal Voice Pitch: Yes: Normal Voice Phonatory-based Quality: Yes: Normal Speech Clarity: < 100% Nasal Resonance: Normal Articulation: Yes: Imprecise Rate of Speech: Intact - Language/Auditory Comprehension Follows: Yes: 1 Stage Simple Commands Observation: Comprehends Conversational Speech: Yes, Benefits from Slow Speech: Yes, Benefits from Repetiton: Yes - Language/Verbal Expression Aphasia: Yes: Anomia Able to Respond to Simple Queries: Yes: Mildly Impaired, Moderately Impaired Able to Communicate Wants and Needs: Yes: Mildly Impaired, Moderately Impaired Functional Communication Status: Yes: Mildly Impaired, Moderately Impaired - Swallow Evaluation/Bedside Assessment Current Nutritional Intake: Soft (mech soft ordered), Thin Liquids Oral Secretions: Yes: WFL Dentition: Yes: Adequate Facial Symmetry at Rest: Symmetrical Facial Symmetry on Retraction: Symmetrical Facial Movement: Controlled Sensation: Normal Against Resistance Closing: Normal Pucker Lips: Normal Smile: Normal Lingual Movement: Normal, Symmetric Lingual Speed of Movement: Normal Lingual Movement Strgth Against Opposition: Normal Lingual Movement Characteristics: Normal Velopharyngeal Movement: Normal Laryngeal Elevation: WFL Laryngeal Movement: Able to Palpate Rate of Intake: WFL Bolus Size: WFL Labial Seal: WFL Chewing: WFL Oral Prep Time: WFL A-P Transit: WFL Pocketing: None Timing of Swallow: WFL Coughing/Throat Clear: No Change in Voice: No Recommendations - Speech Evaluation, Impression/Plan Impression: He was sleeping when I arrived. Distractible with repetition of questions needed to elicit response. Some answers were appropriate, but many were vague,at times perseverative, incomplete with anomia in propositional sppech tasks. Able to name upon confrontation on simple level. Able to repeat. Mild to Moderate Aphasia, however, performance may be better when fully alert. Seemed distractible, possibly as I woke him up. Swallowing seemed WNL. - Dysphagia Impressions/Plan Swallowing Skills: WFL *Silent aspiration: cannot be R/O at bedside - Recommendations Diet Consistency: Regular (soft) Medication Administration: Whole with water Liquids: Thin Liquids
--- NOTE | 2017-04-25 15:09 | PN ---
Physical Exam: SUBJECTIVE: Patient seen and examined. He states he is tired. He denies SOB, dizziness. OBJECTIVE: Vital Signs Period Temp Pulse Resp BP Sys/Giraldo Pulse Ox Last 24 Hr 97.4 F-98.1 F 63-68 18-20 98-121/58-70 99 PE Neuro: alert, awake, oriented to person, follows direction/answers questions PULM: CTAB CV: s1 s2 irregular rhythm regular rate Abd: s nt nd + bs Ext: UE 5/5 motor, lower ext 4/5, able to raise arms above head psych: flat affect Laboratory Results - last 24 hr 04/24/17 04/25/17 04/25/17 16:27 06:00 06:00 WBC 6.5 D RBC 3.98 L Hgb 11.6 L Hct 36.2 MCV 91.0 MCH 29.2 MCHC 32.1 RDW 13.1 Plt Count 157 MPV 8.9 Neutrophils % 57.9 D Lymphocytes % 20.4 D Monocytes % 10.6 H Eosinophils % 10.1 H D Basophils % 1.0 Sodium 138 Potassium 3.9 Chloride 102 Carbon Dioxide 27 Anion Gap 9 BUN 16 Creatinine 0.9 Creat Clearance w eGFR > 60 POC Glucometer 137 Random Glucose 84 D Calcium 8.5 Total Bilirubin 0.8 D AST 11 L ALT 17 Alkaline Phosphatase 88 Total Protein 6.9 Albumin 2.8 L Active Medications Generic Name Dose Route Start Last Admin Trade Name Freq PRN Reason Stop Dose Admin Atorvastatin Calcium 20 mg 04/23/17 22:00 04/24/17 22:04 Lipitor - PO 20 mg HS HERBERT Administration Dabigatran 150 mg 04/23/17 10:00 04/25/17 09:23 Pradaxa - PO 150 mg BID HERBERT Administration Furosemide 40 mg 04/25/17 10:00 04/25/17 09:23 Lasix - PO 40 mg DAILY HERBERT Administration CEFTRIAXONE 1 G/50 ML PREMIX 50 mls @ 100 mls/hr 04/24/17 10:45 04/25/17 09:24 Ceftriaxone 1 Gm-D5w Bag IVPB 100 mls/hr DAILY HERBERT Administration Assessment: 66 year old male with PMHx of CVA (L sided residual weakness), a.fib on Pradaxa, HTN, CHF, DM who presented to the ED when his saw that he was having difficulty ambulating with his cane Plan: 1. L sided weakness, Hx of CVA - Returned to baseline, likely TIA - Awaiting ECHO - Awaiting PT eval - S/S eval noted - MRI with no evidence of acute infarct 2. Sepsis 2/2 presumed UTI - Urine cx negative - Symptoms improved with abx per records, unclear if cx drawn before 1st dose of abx - Will continue ceftriaxone x3 days total 3. A.fib - Continue Pradaxa 4. CHF - No evidence of exacerbation at this time - Restarted PO lasix 40mg day - Restart Entresto today - Hold Metolazone (once weekly) 5. DM- diet controlled - Sugars controlled - Will stop BGM 6. Prophylaxis - On Pradaxa - PT evaluation Dispo: - Can DC home tomorrow pending PT and ECHO Visit type - Emergency Visit Emergency Visit: Yes ED Registration Date: 04/23/17 Care time: The patient presented to the Emergency Department on the above date and was hospitalized for further evaluation of their emergent condition. - New Patient This patient is new to me today: Yes Date on this admission: 04/25/17 - Critical Care Critical Care patient: No
[2017-04-25] MEDS: ATORVASTATIN CA 20 MG TABLET (FP) PO SCH (21:15)
[2017-04-26] MEDS ORDERED: PT OWN MED DRAWER 7, Y5N ONE (09:58)
[2017-04-26] MEDS: DABIGATRAN ETEXILATE MESYLATE 150 MG CAPSULE PO SCH (10:04)
[2017-04-26] MEDS: FUROSEMIDE 40 MG TABLET (FP) PO SCH (10:04)
[2017-04-26] MEDS: SACUBITRIL/VALSARTAN 24 MG-26 MG TABLET PO SCH (10:04)
[2017-04-26] MEDS: CEFTRIAXONE 1 G/50 ML PREMIX 50 ML IVPB SCH (10:05)
--- NOTE | 2017-04-26 10:08 | PN ---
Progress Note (short form) - Note Progress Note: Neurology History of Present Illness Patient is a 66 y.o. male with a PMH of CVA (w/residual L sided weakness) AFib ( on Pradaxa) and HTN who presents via EMS following noticing he was difficult to arouse and difficulty ambulating. Patient's last seen normal was a 1 p.m. yesterday afternoon when he ambulated downstairs and came in to the kitchen and spoke to his . At approximately 3 p.m. patient's noticed patient was sitting bent over in his chair and she had difficulty arousing him fully. Patient's further notes increased weakness on his L side and new onset of right sided weakness. CT head was completed and no acute changes noted. Spoke to ER overnight. Patient was not TPA due to being out of window as well as being on Pradaxa. MRI brain completed and reviewed and without acute changes. Patient reports feeling as himself, on ceftriaxone and stable. Echo completed and showed LV dilated, systolic function moderate to severely reduced. Moderate to severe global hypokinesis. Spoke with nurse, no significant neurologic events overnight. Active Medications Atorvastatin Calcium (Lipitor -) 20 mg PO HS [facility] Last Admin: 04/25/17 21:15 Dose: 20 mg Dabigatran (Pradaxa -) 150 mg PO BID [facility] Last Admin: 04/25/17 21:15 Dose: 150 mg Furosemide (Lasix -) 40 mg PO DAILY [facility] Last Admin: 04/25/17 09:23 Dose: 40 mg CEFTRIAXONE 1 G/50 ML PREMIX (Ceftriaxone 1 Gm-D5w Bag) 50 mls @ 100 mls/hr IVPB DAILY [facility] Last Admin: 04/25/17 09:24 Dose: 100 mls/hr *Physical Exam Vital Signs Temperature 98.0 F 04/25/17 22:00 Pulse Rate 74 04/25/17 22:00 Respiratory Rate 18 04/25/17 22:00 Blood Pressure 136/72 04/25/17 22:00 O2 Sat by Pulse Oximetry (%) 99 04/25/17 21:00 - Physical Exam General Appearance: Yes: Nourished Neck: positive: Trachea midline, Supple Respiratory/Chest: positive: Lungs Clear, Normal Breath Sounds Cardiovascular: positive: S1, S2 Gastrointestinal/Abdominal: positive: Soft Integumentary: positive: Normal Color, Dry, Warm Neurologic: CN intact, normal gaze, speech intact, no facial droop, LUE and LLE 5/5, RLE 5-/5, Sensory intact, gait deferred CBCD WBC 6.5 K/mm3 (4.0-10.0) D 04/25/17 06:00 RBC 3.98 M/mm3 (4.00-5.60) L 04/25/17 06:00 Hgb 11.6 GM/dL (11.7-16.9) L 04/25/17 06:00 Hct 36.2 % (35.4-49) 04/25/17 06:00 MCV 91.0 fl (80-96) 04/25/17 06:00 MCHC 32.1 g/dl (32.0-35.9) 04/25/17 06:00 RDW 13.1 % (11.9-15.9) 04/25/17 06:00 Plt Count 157 K/MM3 (134-434) 04/25/17 06:00 MPV 8.9 fl (7.5-11.1) 04/25/17 06:00 CMP Sodium 138 mmol/L (136-145) 04/25/17 06:00 Potassium 3.9 mmol/L (3.5-5.1) 04/25/17 06:00 Chloride 102 mmol/L (98-107) 04/25/17 06:00 Carbon Dioxide 27 mmol/L (21-32) 04/25/17 06:00 Anion Gap 9 (8-16) 04/25/17 06:00 BUN 16 mg/dL (7-18) 04/25/17 06:00 Creatinine 0.9 mg/dL (0.7-1.3) 04/25/17 06:00 Creat Clearance w eGFR > 60 (>60) 04/25/17 06:00 Calcium 8.5 mg/dL (8.5-10.1) 04/25/17 06:00 Total Bilirubin 0.8 mg/dL (0.2-1.0) D 04/25/17 06:00 AST 11 U/L (15-37) L 04/25/17 06:00 ALT 17 U/L (12-78) 04/25/17 06:00 Alkaline Phosphatase 88 U/L (45-117) 04/25/17 06:00 Total Protein 6.9 g/dl (6.4-8.2) 04/25/17 06:00 Albumin 2.8 g/dl (3.4-5.0) L 04/25/17 06:00 CT head and MRI brain reviewed Plan 66 y.o. male with a PMH of CVA (w/residual L sided weakness) AFib (on Pradaxa) and HTN who presents via EMS following noticing he was difficult to arouse and difficulty ambulating. Patient's last seen normal was a 1 p.m. yesterday afternoon when he ambulated downstairs and came in to the kitchen and spoke to his . At approximately 3 p.m. patient's noticed patient was sitting bent over in his chair and she had difficulty arousing him fully. Patient's further notes increased weakness on his L side and new onset of right sided weakness. CT head was completed and no acute changes noted. Patient was not TPA due to being out of window as well as being on Pradaxa. MRI brain completed and reviewed and without acute changes. Patient reports feeling as himself and at baseline. Most likely TIA, not CVA. Echo reviewed in detail. Cardiology follow up. Monitor arrythmia/Afib, Continue Pradaxa. Monityor b/p can continue Lasix, goal range < 140/90. COntinue statin. Continue medical mgmt and optimization for UTI, on Ceftriaxone.
--- NOTE | 2017-04-26 13:32 | PN ---
Progress Note, [employer] - Note Progress Note: Selected Entries 04/24/17 04/24/17 04/24/17 11:28 15:17 18:37 Breakfast 100% Lunch 100% Supper 100% Temperature 04/25/17 04/25/17 04/25/17 06:00 09:00 16:30 Breakfast Lunch Supper Temperature 97.6 F 98.2 F 97.8 F 04/25/17 04/25/17 04/26/17 18:30 22:00 09:00 Breakfast Lunch Supper 100% Temperature 98.0 F 97.7 F 04/26/17 12:31 Breakfast 100% Lunch Supper Temperature Soft and thin liquids. Tolerating diet.
--- NOTE | 2017-04-26 15:00 | DS ---
Physical Exam: SUBJECTIVE: Patient seen and examined. He is oob to wheelchair, more awake today asking about his family and wanting to go home. OBJECTIVE: Vital Signs Period Temp Pulse Resp BP Sys/Giraldo Pulse Ox Last 24 Hr 97.7 F-98.0 F 70-76 18-18 130-139/68-74 99-99 PE Neuro: alert, awake, oriented to person, daughter PULM: CTAB CV: s1 s2 irregular rhythm regular rate Abd: s nt nd + bs Ext: UE 5/5 motor, lower ext 4/5, able to raise arms above head HOSPITAL COURSE: Date of Admission:04/23/17 Date of Discharge: 04/26/17 Minutes to complete discharge: 37 Discharge Summary Reason For Visit: WEAKNESS Current Active Problems Weakness (Acute) Hospital Course: Initial Hospital Course: Briefly, this 66 year old male with HTN, HLD, CVA (07/2016), CHF with LV systolic dysfunction brought in by and son due to worsened left sided weakness. Later in after noon of admission she noticed him falling to his left side in the chair, she tried to lift him but he was unable to stand due to left sided weakness, which worse than his usual baseline. He did not have LOC, denied dizziness, blurry vision, sob, chest pain, dysuria. Per , pt has been in his usual state of health all morning and for past few days with no complaints to mental status changes. Pt has residual left sided weakness from previous CVA. Subsequent Hospital Course/Progress Note/Discharge Summary by a/P Assessment: 66 year old male with PMHx of CVA (L sided residual weakness), a.fib on Pradaxa, HTN, CHF, DM who presented to the ED when his saw that he was having difficulty ambulating with his cane Plan: 1. L sided weakness, Hx of CVA - Returned to baseline, likely TIA - ECHO severely reduced EF, LV severely dilated - MRI with no evidence of acute infarct 2. Sepsis 2/2 presumed UTI - Urine cx negative - Completed 3 days ceftriaxone 3. A.fib, controlled - Continue Pradaxa 4. Systolic CHF, with - No evidence of exacerbation at this time - Continue Lasix 40mg day - Continue Entresto today - Metolazone (once weekly) - Discussed with pt Primary care doctor/registered art therapist Dr. Beavers, discussed ECHO results and initiation of beta abdulaziz, as he has been prescribed to take here in the past. MD is aware and stated pt has been badycardic with A fib on EKG in office visits and he is treating with entresto alone. Asked to consider restarting coreg at low dose, Dr. Riggs stated to hold for now and he will reevaluate pt in office next week. 5. DM- diet controlled - Sugars controlled Dispo: - Home with above meds and plan - D/w Candace and PCP all aware and agree to above plan Condition: Stable - Instructions Diet, Activity, Other Instructions: Please return to the ED for any new, persistent, or worsening symptoms. Follow up with your primary care doctor Dr. Beavers next week he is expecting you Resume home medication as directed on home medication list. Referrals: Timmy Beavers [Primary Care Provider] - Disposition: HOME - Home Medications Comprehensive Discharge Medication List: Ambulatory Orders Dabigatran Etexilate Mesylate [Pradaxa -] 150 mg PO BID 12/31/16 Furosemide [Lasix -] 40 mg PO DAILY 12/31/16 Sacubitril/Valsartan [Entresto 24 mg-26 mg Tablet] 1 tab PO BID #60 tab Metolazone 10 mg PO WEEKLY 04/12/17 Simvastatin 40 mg PO HS 04/12/17 This patient is new to me today: No Emergency Visit: Yes ED Registration Date: 04/23/17 Care time: The patient presented to the Emergency Department on the above date and was hospitalized for further evaluation of their emergent condition. Critical Care patient: No - Discharge Referral Referred to [facility] No
[2017-04-26 15:40] VITALS: BP 123/78; PULSE 95; TEMP 97.2
== END 2017-04-26 17:33 | disposition home or self-care (01) | DRG 872 ==
LOC: JER 18:12 → JERBED 04-23 04:33 → UNDOADMIN 04-23 04:48 → JERBED 04-23 04:48 → J8W 04-23 15:40
PROVIDERS: ADMIT Internal Medicine; ATTEND Nurse Practitioner Acute Care
DX: A41.9 Sepsis, unspecified organism (principal); I69.354 Hemiplegia and hemiparesis following cerebral infarction affecting left non-dominant side; I50.22 Chronic systolic (congestive) heart failure; N39.0 Urinary tract infection, site not specified; G45.9 Transient cerebral ischemic attack, unspecified; I48.91 Unspecified atrial fibrillation; Z79.01 Long term (current) use of anticoagulants; I11.0 Hypertensive heart disease with heart failure; E78.5 Hyperlipidemia, unspecified; I25.10 Atherosclerotic heart disease of native coronary artery without angina pectoris; E11.9 Type 2 diabetes mellitus without complications; E87.6 Hypokalemia
CPT/HCPCS: 36415; 70450-TC; 70551-TC; 71020-TC; 80048; 80053; 81003; 81015; 82550; 82803; 83605; 84484; 85025; 85027; 85610; 87040; 87086; 87804; 93005; 93010; 93306-TC; 97116-GP; 97161-GP; 99285-25